=== PATIENT | female | born 1940 | race Caucasian/White ===

== ENCOUNTER 2021-05-17 08:55 | Inpatient (IN) ==
[2021-05-17] MEDS ORDERED: FAMOTIDINE 20MG/5ML IV PUSH IV STA (09:19)
[2021-05-17] MEDS ORDERED: diphenhydrAMINE 50 MG/ML VIAL IV STA (09:19)
[2021-05-17] MEDS ORDERED: methylPREDNISolone 125 MG/2 ML VIAL IV STA (09:19)
[2021-05-17] MEDS ORDERED: HYDROmorphone INJ 0.5 MG/0.5 ML SYR IV PRN (09:24)
[2021-05-17] MEDS ORDERED: ACETAMINOPHEN 1,000 MG/100 ML VIAL IV STA (09:24)
--- NOTE | 2021-05-17 09:24 | Emergency Department Note ---
Impression & Plan DVT (deep venous thrombosis), Pulmonary emboli ED Provider Note NAME: JOY VAZQUEZ AGE: 80 SEX: F : 1940 ARRIVES VIA: Ambulance INFORMANT: Patient, ED PROVIDER(S): Haseeb Alvarez MD CHIEF COMPLAINT: Left leg pain HPI: This is a 80-year-old female who was sent in from [facility] over concerns of a large DVT in the left lower extremity. 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 [facility] EMS who brought the patient to the emergency department. EMS attempted to draw blood once without success. Upon arrival to the emergency department the patient is complaining of spasms in the left leg. She reports nothing seems to make the spasms better or worse. She did not receive anything for the spasms prior to arrival. The patient reports yesterday she was having chest pain. She reports nothing made the chest pain better or worse. She did not take anything for the chest pain at the time. [facility] sent the patient to the emergency department to rule out a PE and for recommendations on anticoagulation. ROS: See above HPI for pertinent positives & negatives. A total of 10 systems reviewed and were otherwise negative. PAST MEDICAL HISTORY: See Below PAST SURGICAL HISTORY: See Below FAMILY HISTORY: See Below SOCIAL HISTORY: See Below HOME MEDICATIONS: See Below ALLERGIES: See Below VITALS: See Below PHYSICAL EXAMINATION: VITAL SIGNS - Vital signs and nursing notes were reviewed. GENERAL - 80-year-old female appearing stated age who is in no acute distress. Communicates well with provider and answers questions appropriately. SKIN - diffuse bruising to LLE from hip to foot HEAD - NC/AT. EYES - PERRL with EOMI bilaterally. Sclera anicteric. Palpebral conjunctiva pink and moist with no injection noted. EARS - No deformities of external structures noted on gross examination bilaterally. NOSE - Midline and without cyanosis. No epistaxis or purulent drainage noted. Septum midline without deviation or septal hematoma noted. MOUTH/OROPHARYNX - Without perioral cyanosis. Buccal mucosa pink and moist and without leukoplakia. Tongue midline with equal elevation of palate bilaterally. No tonsillar hypertrophy, erythema, or exudates noted. NECK - Neck with FROM. Supple to palpation. No nuchal rigidity. LUNGS - Chest wall symmetric without accessory muscle use, intercostals retractions, or central cyanosis. Normal vesicular breath sounds CTA B/L. No wheezes, rales, or rhonchi appreciated. CARDIAC - RRR with S1/S2. No murmur, rubs, or gallops appreciated. ABDOMEN - Abdominal contour without pulsations or visible masses. BS normoactive all four quadrants. No tenderness, palpable masses, h epatosplenomegaly, or ascites noted. EXTREMITIES -patient left leg flaccid. She has a very large amount of bruising present from the left hip down to the left foot. Pedal pulses are present in the foot. NEUROLOGIC - Cranial nerves II through XII grossly intact. Sensory intact to light touch throughout. Patellar reflexes +2/4. PSYCH - A&Ox3 and cooperates fully with examiner. Pt is very pleasant and interacts well with examiner. MEDICAL DECISION MAKING: Patient was seen and evaluated as above in room C6. Review was performed of nursing notes and vital signs. I did review pertinent previous visits and patient history. After obtaining a thorough history and physical examination the above work up was performed. This 80-year-old female who presents emergency department complaining of left lower extremity pain. The patient was given Dilaudid as well as Tylenol for the pain. She does have an allergic reaction to iodine therefore was pretreated with Solu-Medrol Benadryl and Pepcid for her CAT scan. CAT scans of the abdomen are concerning for liver lesions. CAT scan of the chest is concerning for multiple PEs. This is a tricky patient to anticoagulate due to the fact that she has a history of an intracranial hemorrhage. She is going to be started on a heparin drip and admitted to the hospitalist service. She does have an elevation in her troponin. In the meanwhile the patient was given 4 g of magnesium here in the emergency department. She was started on a Heparin drip due to the PMHx of an ICH. Ct of the chest is concerning for multiple PEs. An order was placed for continuous cardiac monitoring. The monitor shows a rate of 100 with A fib rhythm. The patient was evaluated during a period of high volume and high acuity during the global COVID-19 pandemic, and that diagnosis was suspected/considered upon their initial presentation. Their evaluation, treatment and testing was consistent with current guidelines for patients who present with complaints or symptoms that may be related to COVID-19. Patient was seen while provider was wearing PPE. Triage Nursing notes reviewed. Prior medical records reviewed Vital Signs: reviewed and remarkable for no significant abnormalities Differential diagnosis: Cardiac ischemia, aortic dissection, pulmonary embolism, pneumothorax, pneumonia, pericarditis, myocarditis, esophageal rupture, GERD, cholecystitis, pancreatitis, musculoskeletal, as well as other pathologies. ER treatment provided: See below Diagnostics interpreted by me: ECG: EKG shows an atrial fibrillation with RVR T wave inversions in the lateral leads QTC is 443 ventricular rate is 120 EKG is compared to 05/02/2021 A. fib has replaced pacemaker Laboratory studies: As stated above and show below. Imaging studies: Venous lower extremity complete performed 05/16/2021 shows a left leg positive for partially occlusive acute DVT of the mid femoral vein the rest of the veins are normally patent. Consultation(s): Pharmacy, Internal Medicine Critical Care: I have personally spent greater than 30 minutes of critical care time in the direct management of this patient. This includes bedside care, interpretation of diagnostic studies, and testing, discussion with consultants, patient, and family members, and other required patient management activities. This 30 minutes is in excess of all separately billable procedures. 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 [place], [place]. date - 2017? 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 Surgical History (Updated 05/17/21 @ 12:29 by Ramsey Cabrera) H/O: hysterectomy History of colonoscopy 2011 - normal, no polyps S/P BSO (bilateral salpingo-oophorectomy) S/P lumbar spinal fusion Family History (Updated 05/17/21 @ 12:29 by Ramsey Cabrera) Mother , from "respiratory failure" Congestive heart failure Myocardial infarction Father , about age 80 from pneumonia Hypertension COPD (chronic obstructive pulmonary disease) Daughter Colorectal cancer Denies family history of Stroke Social History (Updated 05/17/21 @ 12:19 by Ramsey Cabrera) Smoking Status: Former smoker Tobacco Type: Cigarettes packs per day: 0.5; Years Smoked: 20; Smoking End Date: ; Hx Alcohol Use: Yes (previous - none now ) marital status: Current Living Situation: Family Current Living Situation Comment: lives with daughter and son-in-law -- JOLIE HAVEN current occupational status: retired current occupation: worked for [employer] How many Children do You have: 3 How many Children do You have Comment: 2 daughters, 1 son other: originally from [facility]. Feels Safe at Home: Yes Allergies Allergies Allergy/AdvReac Type Severity Reaction Status Date / Time iodine Allergy chills, Verified 05/17/21 09:35 burning sensation in neck vancomycin Allergy rash, Verified 05/17/21 09:35 nausea Home Meds Home Medications Medication Instructions Recorded Confirmed albuterol sulfate 90 mcg/actuation 2 puffs INHALATION Q4H PRN gm 07/18/19 05/17/21 aerosol inhaler cholecalciferol (vitamin D3) 50 2,000 units PO QAM cap 07/21/19 05/17/21 mcg (2,000 unit) capsule levothyroxine 137 mcg tablet 137 mcg PO DAILYBB tab 07/21/19 05/17/21 aspirin [Adult Low Dose Aspirin] 81 mg PO QAM 05/02/21 05/17/21 duloxetine [Cymbalta] 20 mg PO QAM 05/02/21 05/17/21 fluticasone furoate-vilanterol 1 inh INHALATION QAM 05/02/21 05/17/21 [Breo Ellipta] lisinopril 40 mg PO QAM 05/02/21 05/17/21 nitroglycerin [Nitrostat] 0.4 mg SUBLINGUAL DIRECTED PRN 05/02/21 05/17/21 potassium chloride 30 meq PO QAM 05/02/21 05/17/21 atorvastatin [Lipitor] 40 mg PO HS 05/17/21 05/17/21 baclofen 5 mg PO BID 05/17/21 05/17/21 calcium carbonate 500 mg PO QID 05/17/21 05/17/21 diazepam 1 mg PO HS 05/17/21 05/17/21 docusate sodium 100 mg PO BID 05/17/21 05/17/21 doxazosin [Cardura] 2 mg PO HS 05/17/21 05/17/21 folic acid 2 mg PO QAM 05/17/21 05/17/21 gabapentin 200 mg PO Q8H 05/17/21 05/17/21 melatonin 3 mg PO HS 05/17/21 05/17/21 metoprolol tartrate 50 mg PO Q12H 05/17/21 05/17/21 pantoprazole 40 mg PO DAILYBB 05/17/21 05/17/21 polyethylene glycol 3350 [Miralax] 17 g PO QDL PRN 05/17/21 05/17/21 sennosides-docusate sodium 1 tab-cap PO QDL PRN 05/17/21 05/17/21 [Senokot-S] torsemide 10 mg PO QAM 05/17/21 05/17/21 Results & Data (ED) Vital Signs Vital Signs - 24 hr 05/17/21 09:11 05/17/21 09:21 05/17/21 10:36 Temperature 36.8 C Temperature Source Oral Pulse Rate 100 H Pulse Rate [Apical] 76 Pulse Rate from SpO2 Sensor Respiratory Rate 18 18 Blood Pressure 130/77 Blood Pressure [Left Arm] 97/57 L Blood Pressure Mean 94 Blood Pressure Mean [Left Arm] 70 Pulse Oximetry 94 100 97 Oxygen Delivery Method Room Air Room Air Room Air Sepsis Recent Fever Within 48 Hours No Sepsis New/Unexplained Change in Mental Status No Sepsis Action Taken by Nursing No Action Required 05/17/21 11:00 05/17/21 11:30 05/17/21 12:00 Temperature Temperature Source Pulse Rate 80 80 80 Pulse Rate [Apical] Pulse Rate from SpO2 Sensor 80 80 80 Respiratory Rate 19 24 20 Blood Pressure 90/53 L 100/58 L 119/66 Blood Pressure [Left Arm] Blood Pressure Mean 65 72 83 Blood Pressure Mean [Left Arm] Pulse Oximetry 96 96 98 Oxygen Delivery Method Sepsis Recent Fever Within 48 Hours Sepsis New/Unexplained Change in Mental Status Sepsis Action Taken by Nursing 05/17/21 12:30 05/17/21 13:00 05/17/21 13:30 Temperature Temperature Source Pulse Rate 81 80 84 Pulse Rate [Apical] Pulse Rate from SpO2 Sensor 81 80 80 Respiratory Rate 19 18 17 Blood Pressure 117/67 105/62 104/56 L Blood Pressure [Left Arm] Blood Pressure Mean 83 76 72 Blood Pressure Mean [Left Arm] Pulse Oximetry 98 96 97 Oxygen Delivery Method Sepsis Recent Fever Within 48 Hours Sepsis New/Unexplained Change in Mental Status Sepsis Action Taken by Nursing Laboratory Data Result diagrams: 05/17/21 09:05 05/17/21 09:05 Lab Results 05/17/21 05/17/21 05/17/21 Range/Units 09:05 09:05 09:05 WBC 9.69 (4.8-10.8) K/uL RBC 3.06 L (4.2-5.4) M/uL Hgb 9.9 L (12.0-16.0) g/dL Hct 29.3 L (37-47) % MCV 95.8 (80-100) fL MCH 32.4 (25-34) pg MCHC 33.8 (32-36) g/dL RDW Std Deviation 63.4 H (36.4-46.3) fL RDW Coeff of Niyah 19.6 H (11.5-14.5) % Plt Count 544 H (130-400) K/uL MPV 8.9 (7.4-10.4) fL Immature Gran % (Auto) 1.5 % Neut % (Auto) 78.0 % Lymph % (Auto) 12.8 % Logan % (Auto) 6.4 % Eos % (Auto) 1.1 % Baso % (Auto) 0.2 % Neut # (Auto) 7.55 H (1.4-6.5) K/uL Lymph # (Auto) 1.24 (1.2-3.4) K/uL Logan # (Auto) 0.62 H (0.11-0.59) K/uL Eos # (Auto) 0.11 (0-0.5) K/uL Baso # (Auto) 0.02 (0-0.2) K/uL Immature Gran # (Auto) 0.15 H (0.00-0.02) K/uL PT 9.9 (9.0-12.0) Seconds INR 1.0 (0.9-1.1) APTT 21.9 (21.0-31.0) Seconds PTT Ratio 0.8 Sodium 132 L (136-145) mmol/L Potassium 4.5 (3.5-5.1) mmol/L Chloride 101 (98-107) mmol/L Carbon Dioxide 23 (21-32) mmol/L Anion Gap 8.0 (3-11) BUN 22 H (7-18) mg/dl Creatinine 0.90 (0.6-1.2) mg/dl Est Cr Clr Drug Dosing 47.4 ml/min Est GFR ( Amer) 70.5 ml/min Est GFR (Non-Af Amer) 60.8 ml/min BUN/Creatinine Ratio 24.6 H (10-20) Glucose 123 H (70-99) mg/dl Calcium 9.6 (8.5-10.1) mg/dl Total Bilirubin 1.4 H (0.2-1) mg/dl AST 37 (15-37) U/L ALT 76 (12-78) U/L Alkaline Phosphatase 95 (45-117) U/L Total Creatine Kinase 316 H (26-192) U/L CK-MB (CK-2) 5.8 H (0.5-3.6) ng/ml CK/CKMB % Calc 1.8 (0-3.0) Troponin I 0.131 H* (0-0.045) ng/ml Total Protein 5.9 L (6.4-8.2) gm/dl Albumin 3.0 L (3.4-5.0) gm/dl Globulin 2.9 (2.5-4.0) gm/dl Albumin/Globulin Ratio 1.0 (0.9-2) Lipase 199 (73-393) U/L COVID-19 Eval Order SARS-CoV-2 (PCR) (Negative) 05/17/21 05/17/21 Range/Units 10:55 10:55 WBC (4.8-10.8) K/uL RBC (4.2-5.4) M/uL Hgb (12.0-16.0) g/dL Hct (37-47) % MCV (80-100) fL MCH (25-34) pg MCHC (32-36) g/dL RDW Std Deviation (36.4-46.3) fL RDW Coeff of Niyah (11.5-14.5) % Plt Count (130-400) K/uL MPV (7.4-10.4) fL Immature Gran % (Auto) % Neut % (Auto) % Lymph % (Auto) % Logan % (Auto) % Eos % (Auto) % Baso % (Auto) % Neut # (Auto) (1.4-6.5) K/uL Lymph # (Auto) (1.2-3.4) K/uL Logan # (Auto) (0.11-0.59) K/uL Eos # (Auto) (0-0.5) K/uL Baso # (Auto) (0-0.2) K/uL Immature Gran # (Auto) (0.00-0.02) K/uL PT (9.0-12.0) Seconds INR (0.9-1.1) APTT (21.0-31.0) Seconds PTT Ratio Sodium (136-145) mmol/L Potassium (3.5-5.1) mmol/L Chloride (98-107) mmol/L Carbon Dioxide (21-32) mmol/L Anion Gap (3-11) BUN (7-18) mg/dl Creatinine (0.6-1.2) mg/dl Est Cr Clr Drug Dosing ml/min Est GFR ( Amer) ml/min Est GFR (Non-Af Amer) ml/min BUN/Creatinine Ratio (10-20) Glucose (70-99) mg/dl Calcium (8.5-10.1) mg/dl Total Bilirubin (0.2-1) mg/dl AST (15-37) U/L ALT (12-78) U/L Alkaline Phosphatase (45-117) U/L Total Creatine Kinase (26-192) U/L CK-MB (CK-2) (0.5-3.6) ng/ml CK/CKMB % Calc (0-3.0) Troponin I (0-0.045) ng/ml Total Protein (6.4-8.2) gm/dl Albumin (3.4-5.0) gm/dl Globulin (2.5-4.0) gm/dl Albumin/Globulin Ratio (0.9-2) Lipase (73-393) U/L COVID-19 Eval Order Covid19 at [facility] SARS-CoV-2 (PCR) NEGATIVE (Negative) Administered Medications Hydromorphone HCl (Hydromorphone Inj 0.5 Mg/0.5 Ml Syr) 0.25 mg IV Q15M PRN PRN Reason: Pain Stop: 05/31/21 09:23 Last Admin: 05/17/21 09:37 Dose: 0.25 mg Documented by: [id number] Heparin Sodium/Dextrose (Heparin Sodium/Dextrose) 25,000 units in 500 mls @ 0.02 mls/hr IV .Q24H MELIDA; Protocol Stop: 06/16/21 11:07 Last Admin: 05/17/21 11:22 Dose: 1,100 units/hr, 22 mls/hr Documented by: [id number] Cosigned by: [id number] Discontinued Medications Diphenhydramine HCl (Diphenhydramine 50 Mg/Ml Vial) 25 mg IV NOW STA Stop: 05/17/21 09:20 Last Admin: 05/17/21 09:48 Dose: 25 mg Documented by: [id number] Famotidine (Famotidine 20mg/5ml Iv Push) 20 mg IV ONE STA Stop: 05/17/21 09:20 Last Admin: 05/17/21 09:37 Dose: 20 mg Documented by: [id number] Acetaminophen (Ofirmev) 1,000 mg in 100 mls @ 400 mls/hr IV NOW STA Stop: 05/17/21 09:38 Last Infusion: 05/17/21 09:53 Dose: 0 mls/hr Documented by: [id number] Admin: 05/17/21 09:37 Dose: 400 mls/hr Documented by: [id number] Magnesium Sulfate/Dextrose (Magnesium Sulfate / D5w) 1 gm in 100 mls @ 200 mls/hr IV Q30M MELIDA Stop: 05/17/21 10:41 Last Infusion: 05/17/21 11:37 Dose: 0 mls/hr Documented by: [id number] Admin: 05/17/21 10:33 Dose: 200 mls/hr Documented by: [id number] Infusion: 05/17/21 10:29 Dose: 200 mls/hr Documented by: [id number] Admin: 05/17/21 09:59 Dose: 200 mls/hr Documented by: [id number] Magnesium Sulfate/Dextrose (Magnesium Sulfate / D5w) 1 gm in 100 mls @ 200 mls/hr IV Q30M MELIDA Stop: 05/17/21 10:41 Last Infusion: 05/17/21 12:44 Dose: 0 mls/hr Documented by: [id number] Admin: 05/17/21 11:21 Dose: 200 mls/hr Documented by: [id number] Infusion: 05/17/21 11:03 Dose: 200 mls/hr Documented by: [id number] Admin: 05/17/21 10:33 Dose: 200 mls/hr Documented by: [id number] Ioversol (Optiray 320 125ml) 120 ml IV ONCE ONE Stop: 05/17/21 10:06 Last Admin: 05/17/21 10:05 Dose: 120 ml Documented by: [id number] Methylprednisolone (Methylprednisolone 125 Mg/2 Ml Vial) 125 mg IV NOW STA Stop: 05/17/21 09:20 Last Admin: 05/17/21 09:48 Dose: 125 mg Documented by: [id number] Imaging Data Radiologist's Impression: Abdomen/Pelvis CT 05/17/21 09:19 CT abd pelvis IV con only CLINICAL HISTORY: Pt c/o large blood clot, left leg COMPARISON STUDY: None. TECHNIQUE: A dose lowering technique was utilized adhering to the principles of ALARA. CT DOSE: FINDINGS: Lower chest: Limited evaluation of lung bases shows no infiltrates or consolidative lesions. Oral contrast is seen within distal aspect of esophagus. Distal portion of the cardiac pacemaker are visualized. Liver: Normal in size. Innumerable hypoattenuating lesions are seen within the right and left lobe of the liver, largest is measured 3.7 x 2.3 cm on axial image and appear to be multicystic/multiloculated. There is mild prominence of central intrahepatic biliary ducts. Significant dilatation of extrahepatic bili ken duct measuring up to 15 mm in diameter no evidence of intraluminal calculi or definite mass lesion is seen. Gallbladder: Surgically absent. Spleen: Normal in size and attenuation. Pancreas: Unremarkable. Adrenal glands: Unremarkable. Kidneys: There is symmetric renal cortical enhancement. The kidneys are normal in size. Mild dilatation of the right renal pelvis is seen without definite hydroureter or obstructive calculi.No hydronephrosis is seen on the left. No evidence of nephrolithiasis. Pelvic viscera: Urinary bladder is fluid-filled with diffuse thickening of its wall. Uterus is not well seen, probably surgically absent. Bowel: Bowel loops are nondilated. Fluid-filled loops of small bowel might be seen in diarrheal state. Slightly dilated rectum with large amount of stool and gas, mild thickening of its wall and slight presacral fat stranding might represent proctitis. Peritoneum: There is no intraperitoneal free air or abdominal ascites. Vasculature: Abdominal aorta is tortuous, normal in caliber with prominent calcifications within its wall. Normal appearance of inferior vena cava and iliac veins. Adenopathy: None. Skeletal structures: Osteopenia. Degenerative changes of the spine. Partial fusion of the L3, L4 and L5 with possible prior surgical intervention within this region. IMPRESSION: 1. Multiple hypoattenuating and probably multicystic lesions throughout right and left lobe of the liver. Prominent dilatation of the common bile duct without definite mass lesions or obstructive calculus. Please correlate above-mentioned findings was prior history. Further evaluation with MRI of the abdomen might be considered if clinically indicated. 2. Mild hydronephrosis on the right. No evidence of obstructive calculi or mass lesions. Further evaluation with renal ultrasound might be considered. 3. Slightly dilated rectum with thickened wall and mild presacral edema, could represent proctitis. Please correlate above-mentioned findings with clinical presentation. 4. Multiple nondilated loops of small bowel are fluid-filled which could be seen in diarrheal state. 5. Mild diffuse thickening of urinary bladder wall which could seen in cystitis. Please correlate this findings with results of urinalysis. 6. Atherosclerosis. ACT 112: Positive. There are findings on this exam that require communication between the performing entity and the patient following Patient Test Result Information Act ([place] Act 112) guidelines. The above report was generated using voice recognition software. It may contain grammatical, syntax or spelling errors. Electronically signed by: Anne Marie Clark DO 05/17/2021 10:45 AM Chest CTA 05/17/21 09:19 CT ANGIOGRAM OF THE CHEST CLINICAL HISTORY: Pulmonary most. The venous thrombosis. COMPARISON STUDY: No priors. TECHNIQUE: Following the IV administration of 120 cc of Optiray 320, CT angiogram of the chest was performed from the upper abdomen to the thoracic inlet utilizing the pulmonary embolus protocol. Images are reviewed in the axial, sagittal, and coronal planes. 3-D MIPS images are created and assessed. IV contrast was administered without complication. A dose lowering technique was utilized adhering to the principles of ALARA. The examination is degraded by motion artifact, as well as by streak artifact from the arms which could not be elevated above the chest. CT DOSE: 824.52 mGycm FINDINGS: Thyroid: Atrophic versus surgically absent. Thoracic aorta: There is atherosclerotic calcification of the thoracic aorta, which is normal in caliber and demonstrates standard 3-vessel arch anatomy. No dissection is seen. Pulmonary vasculature: The pulmonary trunk is normal in caliber. There are segmental and subsegmental pulmonary emboli within branches of the right lower lobe pulmonary artery. There is also thrombus within the right upper lobe pulmonary artery extending into a segmental branch seen on image #174. Heart: A 2-lead cardiac pacemaker is present in the left chest wall. The heart is normal in size and without pericardial effusion. Lungs and pleural spaces: There is no airspace consolidation typical for pneumonia or pleural effusion. Fat-containing Bochdalek hernias are present at the lung bases. There is mild bibasilar scarring/atelectasis. The trachea and central airways are clear. An 8 mm left lower lobe pulmonary nodule is seen on image #175. There are 2 small right apical pulmonary nodules measuring up to 4 mm seen on images #246 and #251. A 3 mm left upper lobe pulmonary nodule is seen on image #224. Mediastinum: There is no mediastinal lymphadenopathy. Nena: Clear. Axillae: There is no axillary lymphadenopathy. Upper abdomen: Hepatic cysts measure up to 3 cm. Partially visualized upper abdominal viscera is within normal limits. Skeletal structures: The skeletal structures are heterogeneously osteopenic. De generative change and hyperkyphosis is noted in the thoracic spine. No lytic or blastic bony lesions are seen. IMPRESSION: 1. Right-sided pulmonary emboli as above. 2. There is no airspace consolidation or pleural effusion. 3. Scattered indeterminate pulmonary nodules measure up to 8 mm. These can be followed as per the Fleischner criteria. See below. Please refer to below summary of Fleischner criteria recommendations for follow- up of incidental CT nodules (Savi Mcadams, Guidelines for management of small pulmonary nodules detected on CT scans: A statement from the Fleischner Society, Radiology 237: [phone].) SOLID NODULES Solitary nodule size: <6 mm * low risk patients: no follow-up needed * high risk patients: optional CT at 12 months Solitary nodule size: 6-8 mm * low risk patients: follow-up at 6-12 months, then consider further follow-up at 18-24 months * high risk patients: initial follow-up CT at 6-12 months and then at 18-24 months if no change Solitary nodule size: >8 mm * either low or high risk patients - consider follow-up CT at 3 months, and/or CT-PET, and/or biopsy Multiple nodules size: <6 mm * low risk patients: no routine follow-up * high risk patients: optional CT at 12 months Multiple nodules size: 6-8 mm * low risk patients: follow-up at 3-6 months, then consider further follow-up at 18-24 months * high risk patients: follow-up at 3-6 months, then at 18-24 months if no change Multiple nodules size: >8 mm * low risk patients: follow-up at 3-6 months, then consider further follow-up at 18-24 months * high risk patients: follow-up at 3-6 months, then at 18-24 months if no change Note: newly detected indeterminate nodule in persons 35 years of age or older. * low risk patients: minimal or absent history of smoking and/or other known risk factors * high risk patients: history of smoking or of other known risk factors (e.g. first degree relative with lung cancer, or exposure to asbestos, radon, uranium) * if a nodule up to 8 mm is partly solid or is ground glass further follow-up i s required after 24 months to exclude possible slow growing adenocarcinoma (SANJAY) SUBSOLID NODULES Solitary pure ground-glass nodule * nodule size <6 mm - no CT follow-up required * nodule size >=6 mm - follow-up CT at 6-12 months, then every 2 years until 5 years Solitary part-solid nodule * nodule size <6 mm - no CT follow-up required * nodule size >=6 mm - follow-up CT at 3-6 months. If unchanged, and solid component remains <6 mm, then annual follow-up for 5 years Multiple subsolid nodules * nodule size <6 mm - follow-up CT at 3-6 months, consider further follow-up at 2 and 4 years if stable * nodule size >=6 mm - follow-up CT at 3-6 months, subsequent management based on the most suspicious nodule(s) ACT 112: Negative or not required by law. Electronically signed by: Guicho Castelan M.D. 05/17/2021 10:45 AM Discharge Plan Visit Data Chief Complaint: Leg Injury/Pain Stated Complaint: DVT LEFT LEG ED Provider: Haseeb Alvarez Discharge Problem: DVT (deep venous thrombosis), Pulmonary emboli Forms Stand Alone Forms: [employer] Prescriptions Prescriptions: No Action albuterol sulfate 90 mcg/actuation HFA aerosol inhaler 2 puffs inhalation Q4H PRN (Reason: SHORT OF BREATH) RF: 0 cholecalciferol (vitamin D3) 2,000 unit capsule 2,000 units PO QAM RF: 0 levothyroxine 137 mcg tablet 137 mcg PO DAILYBB RF: 0 atorvastatin [Lipitor] 40 mg tablet 40 mg PO HS RF: 0 polyethylene glycol 3350 [Miralax] 17 gram Powder In Packet 17 g PO QDL PRN (Reason: Constipation) RF: 0 sennosides-docusate sodium [Senokot-S] 8.6-50 mg Tablet 1 tab-cap PO QDL PRN (Reason: Constipation) RF: 0 torsemide 10 mg tablet 10 mg PO QAM RF: 0 melatonin 3 mg Tablet 3 mg PO HS RF: 0 diazepam 2 mg Tablet 1 mg PO HS RF: 0 pantoprazole 40 mg Tablet,Delayed Release (Dr/Ec) 40 mg PO DAILYBB RF: 0 metoprolol tartrate 50 mg Tablet 50 mg PO Q12H RF: 0 docusate sodium 100 mg Capsule 100 mg PO BID RF: 0 folic acid 1 mg Tablet 2 mg PO QAM RF: 0 calcium carbonate 500 mg calcium (1,250 mg) Tablet,Chewable 500 mg PO QID RF: 0 gabapentin 100 mg Capsule 200 mg PO Q8H RF: 0 doxazosin [Cardura] 2 mg tablet 2 mg PO HS RF: 0 baclofen 5 mg Tablet 5 mg PO BID RF: 0 potassium chloride 10 mEq Capsule, Extended Release 30 meq PO QAM RF: 0 aspirin [Adult Low Dose Aspirin] 81 mg Tablet,Delayed Release (Dr/Ec) 81 mg PO QAM RF: 0 nitroglycerin [Nitrostat] 0.4 mg Tablet, Sublingual 0.4 mg sublingual DIRECTED PRN (Reason: Chest Pain) RF: 0 lisinopril 40 mg Tablet 40 mg PO QAM RF: 0 duloxetine [Cymbalta] 20 mg Capsule,Delayed Release(Dr/Ec) 20 mg PO QAM RF: 0 Breo Ellipta 200-25 mcg/dose Blister With Device 1 inh INHALATION QAM RF: 0 Discharge Problem: DVT (deep venous thrombosis) Qualifiers: DVT location: lower extremity Affected thrombotic vein of extremity: unspecified vein of extremity Chronicity: acute Laterality: left Qualified Code(s): I82.402 - Acute embolism and thrombosis of unspecified deep veins of left lower extremity Pulmonary emboli Qualifiers: Pulmonary embolism type: unspecified Chronicity: unspecified Acute cor pulmonale presence: unspecified Qualified Code(s): I26.99 - Other pulmonary embolism without acute cor pulmonale
[2021-05-17 09:25] LABS: Basophils # (auto) 0.02 K/uL (0-0.2); Basophils % (auto) 0.2 %; Eosinophils # (auto) 0.11 K/uL (0-0.5); Eosinophils % (auto) 1.1 %; Hematocrit (blood only) 29.3 % (37-47); Hemoglobin 9.9 g/dL (12.0-16.0); Immature Granulocytes # (auto) 0.15 K/uL (0.00-0.02); Immature Granulocytes % (auto) 1.5 %; Lymphocytes # (auto) 1.24 K/uL (1.2-3.4); Lymphocytes % (auto) 12.8 %; Mean Corpuscular Hemoglobin 32.4 pg (25-34); Mean Corpuscular Hgb Conc 33.8 g/dL (32-36); Mean Corpuscular Volume 95.8 fL (80-100); Mean Platelet Volume 8.9 fL (7.4-10.4); Monocytes # (auto) 0.62 K/uL (0.11-0.59); Monocytes % (auto) 6.4 %; Neutrophils # (auto) 7.55 K/uL (1.4-6.5); Platelet Count 544 K/uL (130-400); RDW Coefficient of Variation 19.6 % (11.5-14.5); RDW Standard Deviation 63.4 fL (36.4-46.3); Red Blood Count 3.06 M/uL (4.2-5.4); White Blood Count 9.69 K/uL (4.8-10.8)
[2021-05-17 09:39] LABS: Partial Thromboplastin Ratio 0.8; Partial Thromboplastin Time 21.9 Seconds (21.0-31.0); Prothrombin Time 9.9 Seconds (9.0-12.0)
[2021-05-17 09:45] LABS: BUN Creatinine Ratio 24.6 (10-20); Calcium 9.6 mg/dl (8.5-10.1); Creatinine Clr Calc Pharmacy 47.4 ml/min; Est GFR (African American) 70.5 ml/min; Est GFR (Non-African American) 60.8 ml/min; Potassium 4.5 mmol/L (3.5-5.1)
[2021-05-17 09:57] LABS: Bilirubin,Total 1.4 mg/dl (0.2-1); Creatine Kinase MB 5.8 ng/ml (0.5-3.6); Globulin 2.9 gm/dl (2.5-4.0); Total Protein 5.9 gm/dl (6.4-8.2); Troponin I 0.131 ng/ml (0-0.045)
[2021-05-17] MEDS: MAGNESIUM SULFATE / D5W 1 GM/100 ML BAG IV SCH ×4 (09:59→11:21)
[2021-05-17] MEDS ORDERED: OPTIRAY 320 125ml IV ONE (10:05)
--- NOTE | 2021-05-17 10:46 | CT Scan Report ---
CT ANGIOGRAM OF THE CHEST CLINICAL HISTORY: Pulmonary most. The venous thrombosis. COMPARISON STUDY: No priors. TECHNIQUE: Following the IV administration of 120 cc of Optiray 320, CT angiogram of the chest was pe rformed from the upper abdomen to the thoracic inlet utilizing the pulmonary embolus protocol. Images are reviewed in the axial, sagittal, and coronal planes. 3-D MIPS images are created and assessed. I V contrast was administered without complication. A dose lowering technique was utilized adhering to the principles of ALARA. The examination is degraded by motion artifact, as well as by streak artifa ct from the arms which could not be elevated above the chest. CT DOSE: 824.52 mGycm FINDINGS: Thyroid: Atrophic versus surgically absent. Thoracic aorta: There is atherosclerotic calcification of the thoracic aorta, which is normal in naseem andrea and demonstrates standard 3-vessel arch anatomy. No dissection is seen. Pulmonary vasculature: The pulmonary trunk is normal in caliber. There are segmental and subsegmental pulmonary emboli within branches of the right lower lobe pulmonary artery. There is also thrombus wi thin the right upper lobe pulmonary artery extending into a segmental branch seen on image #174. Heart: A 2-lead cardiac pacemaker is present in the left chest wall. The heart is normal in size and without pericardial effusion. Lungs and pleural spaces: There is no airspace consolidation typical for pneumonia or pleural effusio n. Fat-containing Bochdalek hernias are present at the lung bases. There is mild bibasilar scarring/a telectasis. The trachea and central airways are clear. An 8 mm left lower lobe pulmonary nodule is se en on image #175. There are 2 small right apical pulmonary nodules measuring up to 4 mm seen on image s #246 and #251. A 3 mm left upper lobe pulmonary nodule is seen on image #224. Mediastinum: There is no mediastinal lymphadenopathy. Nena: Clear. Axillae: There is no axillary lymphadenopathy. Upper abdomen: Hepatic cysts measure up to 3 cm. Partially visualized upper abdominal viscera is with in normal limits. Skeletal structures: The skeletal structures are heterogeneously osteopenic. Degenerative change and hyperkyphosis is noted in the thoracic spine. No lytic or blastic bony lesions are seen. IMPRESSION: 1. Right-sided pulmonary emboli as above. 2. There is no airspace consolidation or pleural effusion. 3. Scattered indeterminate pulmonary nodules measure up to 8 mm. These can be followed as per the Fle ischner criteria. See below. Please refer to below summary of Fleischner criteria recommendations for follow-up of incidental CT n odules (Savi Mcadams, Guidelines for management of small pulmonary nodules detected on CT scans: A joie barraza from the Fleischner Society, Radiology 237: [phone].) SOLID NODULES Solitary nodule size: <6 mm * low risk patients: no follow-up needed * high risk patients: optional CT at 12 months Solitary nodule size: 6-8 mm * low risk patients: follow-up at 6-12 months, then consider further follow-up at 18-24 months * high risk patients: initial follow-up CT at 6-12 months and then at 18-24 months if no change Solitary nodule size: >8 mm * either low or high risk patients - consider follow-up CT at 3 months, and/or CT-PET, and/or biopsy Multiple nodules size: <6 mm * low risk patients: no routine follow-up * high risk patients: optional CT at 12 months Multiple nodules size: 6-8 mm * low risk patients: follow-up at 3-6 months, then consider further follow-up at 18-24 months * high risk patients: follow-up at 3-6 months, then at 18-24 months if no change Multiple nodules size: >8 mm * low risk patients: follow-up at 3-6 months, then consider further follow-up at 18-24 months * high risk patients: follow-up at 3-6 months, then at 18-24 months if no change Note: newly detected indeterminate nodule in persons 35 years of age or older. * low risk patients: minimal or absent history of smoking and/or other known risk factors * high risk patients: history of smoking or of other known risk factors (e.g. first degree relative with lung cancer, or exposure to asbestos, radon, uranium) * if a nodule up to 8 mm is partly solid or is ground glass further follow-up is required after 24 m onths to exclude possible slow growing adenocarcinoma (SANJAY) SUBSOLID NODULES Solitary pure ground-glass nodule * nodule size <6 mm - no CT follow-up required * nodule size >=6 mm - follow-up CT at 6-12 months, then every 2 years until 5 years Solitary part-solid nodule * nodule size <6 mm - no CT follow-up required * nodule size >=6 mm - follow-up CT at 3-6 months. If unchanged, and solid component remains <6 mm, then annual follow-up for 5 years Multiple subsolid nodules * nodule size <6 mm - follow-up CT at 3-6 months, consider further follow-up at 2 and 4 years if sta ble * nodule size >=6 mm - follow-up CT at 3-6 months, subsequent management based on the most suspiciou s nodule(s) ACT 112: Negative or not required by law. Electronically signed by: Guicho Castelan M.D. 05/17/2021 10:45 AM
--- NOTE | 2021-05-17 10:47 | CT Scan Report ---
CT abd pelvis IV con only CLINICAL HISTORY: Pt c/o large blood clot, left leg COMPARISON STUDY: None. TECHNIQUE: A dose lowering technique was utilized adhering to the principles of ALARA. CT DOSE: FINDINGS: Lower chest: Limited evaluation of lung bases shows no infiltrates or consolidative lesions. Oral con trast is seen within distal aspect of esophagus. Distal portion of the cardiac pacemaker are visualiz ed. Liver: Normal in size. Innumerable hypoattenuating lesions are seen within the right and left lobe of the liver, largest is measured 3.7 x 2.3 cm on axial image and appear to be multicystic/multiloculat ed. There is mild prominence of central intrahepatic biliary ducts. Significant dilatation of extrahe patic biliary duct measuring up to 15 mm in diameter no evidence of intraluminal calculi or definite mass lesion is seen. Gallbladder: Surgically absent. Spleen: Normal in size and attenuation. Pancreas: Unremarkable. Adrenal glands: Unremarkable. Kidneys: There is symmetric renal cortical enhancement. The kidneys are normal in size. Mild dilatati on of the right renal pelvis is seen without definite hydroureter or obstructive calculi.No hydroneph rosis is seen on the left. No evidence of nephrolithiasis. Pelvic viscera: Urinary bladder is fluid-filled with diffuse thickening of its wall. Uterus is not we ll seen, probably surgically absent. Bowel: Bowel loops are nondilated. Fluid-filled loops of small bowel might be seen in diarrheal state . Slightly dilated rectum with large amount of stool and gas, mild thickening of its wall and slight presacral fat stranding might represent proctitis. Peritoneum: There is no intraperitoneal free air or abdominal ascites. Vasculature: Abdominal aorta is tortuous, normal in caliber with prominent calcifications within its wall. Normal appearance of inferior vena cava and iliac veins. Adenopathy: None. Skeletal structures: Osteopenia. Degenerative changes of the spine. Partial fusion of the L3, L4 and L5 with possible prior surgical intervention within this region. IMPRESSION: 1. Multiple hypoattenuating and probably multicystic lesions throughout right and left lobe of the l iver. Prominent dilatation of the common bile duct without definite mass lesions or obstructive calcu trice. Please correlate above-mentioned findings was prior history. Further evaluation with MRI of the abdomen might be considered if clinically indicated. 2. Mild hydronephrosis on the right. No evidence of obstructive calculi or mass lesions. Further bal luation with renal ultrasound might be considered. 3. Slightly dilated rectum with thickened wall and mild presacral edema, could represent proctitis. Please correlate above-mentioned findings with clinical presentation. 4. Multiple nondilated loops of small bowel are fluid-filled which could be seen in diarrheal state. 5. Mild diffuse thickening of urinary bladder wall which could seen in cystitis. Please correlate th is findings with results of urinalysis. 6. Atherosclerosis. ACT 112: Positive. There are findings on this exam that require communication between the performing entity and the patient following Patient Test Result Information Act ([place] Act 112) guidelines. The above report was generated using voice recognition software. It may contain grammatical, syntax o r spelling errors. Electronically signed by: Anne Mraie Clark DO 05/17/2021 10:45 AM
[2021-05-17] MEDS ORDERED: Heparin IV Adult Wt-Based Standard *NO* Bolus Protocol ONE (10:53)
[2021-05-17] MEDS: HEPARIN SODIUM/DEXTROSE 25,000 UNITS/500 ML BAG IV SCH (11:22)
--- NOTE | 2021-05-17 11:47 | History & Physical Report ---
Date of Service May 17, 2021 Assessment & Plan (1) Pulmonary emboli: Right sided PEs with LLE DVT. Risk factors - prolonged immobility of the left leg. I cannot rule out an occult cancerous process in light of the liver lesions, weight loss, etc. I called [facility] and spoke with their on-call neurosurgeon. 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 Discussed recent CVA (presumed embolic from a.fib). Discussed recent CTA head/neck showing healthy vessels - specifically, no dissection, aneurysm, AVM, etc seen. It was felt that the risks of not treating the PEs/DVT outweigh the risks of recurrent bleeding from a tiny intracerebral AVM. Thus, will continue heparin infusion per protocol. Defer to daytime rounding team which oral agent to use. (2) DVT (deep venous thrombosis): LLE -- see above. 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 resulting severe weakness of the LLE and, to a degrees, mild LUE weakness. patient is left-handed. presumed embolic from her chronic, permanent a.fib. for secondary reduction of stroke will now be on systemic anticoagulation. can d/c aspirin. continue lipitor 40mg daily. (4) Atrial fibrillation: permanent. cont metoprolol 50mg BID. starting heparin infusion. defer to daytime rounding team choice of oral anticoagulant. (5) Hypertension: BPs low or low-normal at presentation today. HOLD multiple BP meds from home including lisinopril, doxazosin, and torsemide. (6) Hypothyroid: check TSH in am cont synthroid (7) Intracranial hemorrhage: history of such. had this in ~2017. see discussion above. patient was told it was due to a venous malformation that bled. on all studies of the brain recently completed there are no AVMs or aneurysms seen. her bleeding event was so mild that she did not require hospitalization? 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 (9) Diarrhea: stop constipation aids. check a c diff. treat as needed. (10) Weight loss: Even prior to the patient's stroke she had been having weight loss, early satiety, and changing bowel habits. The weight loss and liver lesions are concerning for occult malignancy. see below. (11) Anemia: check iron studies in am. on 05/02/21 her Hb was 12. Hb now <10. much of the drop could be 2nd to frequent blood draws, bruising on left leg (extensive), etc. stool was HEME NEGATIVE on examination today. trend the cbc. (12) Liver lesion: numerous lesions along with CBD dilatation. etiology and significance of these lesions -- uncertain, but worrisome. start with RUQ u/s. may need MRCP. pt's daughter stated that pacemaker is MR compatible. however, while at [facility], her pacemaker was not functioning normally while in the MRI machine. (13) UTI (urinary tract infection): u/a suggestive of UTI. at risk of nosocomial pathogens. start rocephin 2gm daily, follow culture to completion. (14) Asthma: not active at this time (15) Complex care coordination: called and spoke with pt's daughter - gave extensive update by phone. called and spoke with neurosurgery at [facility] - case discussed thoroughly. bedside visit and other care coordination very complex. total time today 105 minutes History of Present Illness Chief Complaint: "they found a blood clot" Primary Care Provider: Surekha Saucedo MD 80yo female with recent right MCA territory stroke on 05/02/21 due to large em bolus in the right MCA - transferred and hospitalized at [facility] with hopes for neurovascular intervention - presents from [facility] due to a DVT diagnosed in the last 24 hours. The DVT is in the LLE. Doppler report confirms a left mid-femoral vein DVT. RLE is negative for DVT. She had been having pain in the left leg for a few days. She also had chest discomfort yesterday but none today. She denies any dyspnea. Patient reports that anticoagulation was NOT initiated at [place] for her acute embolic stroke due to concerns about her spontaneous ICH while living in [place], [place]. This event occurred in ~2017. Apparently presented to a eye doctor there with visual disturbance. MRI ultimately done showing a ?left cerebral AVM? Oddly she did not require hospitalization for this. [facility] records were reviewed -- after arriving at [facility] she ultimately did NOT have intervention to the right MCA embolus. She apparently had had severe LLE spasms and was seen by pain management for this problem. Her left leg is considerably bruised and records from [facility] indicate the extensive bruising occurred because of self-rubbing the leg while at [facility]? Allergies Allergy/AdvReac Type Severity Reaction Status Date / Time iodine Allergy chills, Verified 05/17/21 09:35 burning sensation in neck vancomycin Allergy rash, Verified 05/17/21 09:35 nausea Home Medications Medication Instructions Recorded Confirmed Type albuterol sulfate 90 mcg/actuation 2 puffs INHALATION Q4H PRN gm 07/18/19 05/17/21 History aerosol inhaler cholecalciferol (vitamin D3) 50 2,000 units PO QAM cap 07/21/19 05/17/21 History mcg (2,000 unit) capsule levothyroxine 137 mcg tablet 137 mcg PO DAILYBB tab 07/21/19 05/17/21 History aspirin [Adult Low Dose Aspirin] 81 mg PO QAM 05/02/21 05/17/21 History duloxetine [Cymbalta] 20 mg PO QAM 05/02/21 05/17/21 History fluticasone furoate-vilanterol 1 inh INHALATION QAM 05/02/21 05/17/21 History [Breo Ellipta] lisinopril 40 mg PO QAM 05/02/21 05/17/21 History nitroglycerin [Nitrostat] 0.4 mg SUBLINGUAL DIRECTED PRN 05/02/21 05/17/21 History potassium chloride 30 meq PO QAM 05/02/21 05/17/21 History atorvastatin [Lipitor] 40 mg PO HS 05/17/21 05/17/21 History baclofen 5 mg PO BID 05/17/21 05/17/21 History calcium carbonate 500 mg PO QID 05/17/21 05/17/21 History diazepam 1 mg PO HS 05/17/21 05/17/21 History docusate sodium 100 mg PO BID 05/17/21 05/17/21 History doxazosin [Cardura] 2 mg PO HS 05/17/21 05/17/21 History folic acid 2 mg PO QAM 05/17/21 05/17/21 History gabapentin 200 mg PO Q8H 05/17/21 05/17/21 History melatonin 3 mg PO HS 05/17/21 05/17/21 History metoprolol tartrate 50 mg PO Q12H 05/17/21 05/17/21 History pantoprazole 40 mg PO DAILYBB 05/17/21 05/17/21 History polyethylene glycol 3350 [Miralax] 17 g PO QDL PRN 05/17/21 05/17/21 History sennosides-docusate sodium 1 tab-cap PO QDL PRN 05/17/21 05/17/21 History [Senokot-S] torsemide 10 mg PO QAM 05/17/21 05/17/21 History Past Med/Surg History Medical History (Updated 05/17/21 @ 23:46 by Ramsey Cabrera) Allergic rhinitis Asthma Atrial fibrillation diagnosis in mid Hypertension Hypothyroid 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 [facility] Jeff. date - 2016? Pacemaker [facility] - 2019 - tachy-elmira syndrome / SA node dysfunction ? Stroke right MCA territory CVA - 04/2021; hospitalized [facility]. Surgical History (Updated 05/17/21 @ 12:29 by Ramsey Cabrera) H/O: hysterectomy History of colonoscopy 2011 - normal, no polyps S/P BSO (bilateral salpingo-oophorectomy) S/P lumbar spinal fusion Family History (Updated 05/17/21 @ 12:29 by Ramsey Cabrera) Mother , from "respiratory failure" Congestive heart failure Myocardial infarction Father , about age 80 from pneumonia Hypertension COPD (chronic obstructive pulmonary disease) Daughter Colorectal cancer Denies family history of Stroke Social History (Updated 05/17/21 @ 12:19 by Ramsey Cabrera) Smoking Status: Unknown if ever smoked Tobacco Type: Cigarettes packs per day: 0.5; Years Smoked: 20; Smoking End Date: ; Hx Alcohol Use: No Hx Substance Use: No Preferred Language: Kenyan Communication Ability: Effective [employer] Required: No Beliefs That Will Affect Care: None marital status: Current Living Situation: Rehab Current Living Situation Comment: lives with daughter and son-in-law -- [place] current occupational status: retired current occupation: worked for [employer] How many Children do You have: 3 How many Children do You have Comment: 2 daughters, 1 son Other Information That Helps Us Care for You: No other: originally from [facility]. Feels Safe at Home: Yes Safety Concerns: Feels Safe At This Time Review of Systems Constitutional: + weight loss (uncertain amount ); no fever, no chills, no fatigue and no anorexia Eyes: no worsening vision Ear, Nose, Mouth, Throat: no sore throat and no dysphagia no loss of taste or smell Respiratory: + cough; no dyspnea on exertion, no hemoptysis and no pain on inspiration Cardiovascular: + chest pain (on 05/16/21 ) and + edema Gastrointestinal: + early satiety (several months duration ) and + diarrhea/loose stools (present "off and on" for "years" ); no abdominal pain, no nausea, no vomiting and no blood in stools Genitourinary: no hematuria Musculoskeletal: + joint pain (left hip for a few weeks - prior to stroke ) Integumentary: no rash Neurologic: + localized weakness (LLE; left arm as well --- from recent CVA ) Psychiatric: + depression Endocrine: no diabetes Hematologic / Lymphatic: no lymphadenopathy and no night sweats Physical Exam Constitutional: + ill appearing and + frail appearing; no acute distress and no altered mental status Eyes: PERRL ENMT: Ears: no TM abnormality Nose: no external nose abnormality Mouth: no oropharynx abnormality Neck: trachea midline, no thyromegaly Respiratory: normal respiratory effort, lungs clear to auscultation Cardiovascular: Rate/Rhythm: regular rate and + irregularly irregular Heart Sounds: normal S1 and normal S2; no murmur Vessels: posterior tibial pulses present and dorsalis pedis pulses present; no JVD Extremities: + edema (LLE - about 1+ distally, 2+ in the left thigh; trace RLE ) Gastrointestinal (Abdomen): Inspection/Auscultation: + abdomen distended (mild) and normal bowel sounds Percussion/Palpation: + abdomen tender (suprapubic region ); no guarding, abdomen not rigid and no hepatosplenomegaly Rectal Exam: + rectal tenderness (minimal); heme negative stool, no rectal mass, no hemorrhoids and no fecal impaction Musculoskeletal: extensive bruising of left leg extending from the proximal left thigh and tracking inferiorly all the way to the left foot. Skin: + ecchymosis (LLE) Neurologic: speech clear & fluent; Left arm strength 4/5; right arm strength 5/5; RLE 5/5; LLE strength 0/5. Increased tone LUE and LLE, much worse in LLE. Clonus left foot. Mildly brisk reflexes left arm/leg vs the right. Psychiatric: Orientation: alert and oriented x 3 Affect: + depressed affect Lymphatic: no cervical lymphadenopathy Results & Data Results & Data ([facility]) Vital Signs (Past 12 Hours) Vital Signs Temp Pulse Pulse Resp BP BP Pulse Ox 05/17/21 11:00 80 19 90/53 L 96 05/17/21 10:36 76 18 97/57 L 97 05/17/21 09:21 100 05/17/21 09:11 36.8 C 100 H 18 130/77 94 Laboratory Results Labs 05/17/21 05/17/21 05/17/21 09:05 09:05 09:05 WBC 9.69 RBC 3.06 L Hgb 9.9 L Hct 29.3 L MCV 95.8 MCH 32.4 MCHC 33.8 RDW Std Deviation 63.4 H RDW Coeff of Niyah 19.6 H Plt Count 544 H MPV 8.9 Immature Gran % (Auto) 1.5 Neut % (Auto) 78.0 Lymph % (Auto) 12.8 [place] % (Auto) 6.4 Eos % (Auto) 1.1 Baso % (Auto) 0.2 Neut # (Auto) 7.55 H Lymph # (Auto) 1.24 [place] # (Auto) 0.62 H Eos # (Auto) 0.11 Baso # (Auto) 0.02 Immature Gran # (Auto) 0.15 H PT 9.9 INR 1.0 APTT 21.9 PTT Ratio 0.8 Sodium 132 L Potassium 4.5 Chloride 101 Carbon Dioxide 23 Anion Gap 8.0 BUN 22 H Creatinine 0.90 Est Cr Clr Drug Dosing 47.4 Est GFR ( Amer) 70.5 Est GFR (Non-Af Amer) 60.8 BUN/Creatinine Ratio 24.6 H Glucose 123 H Calcium 9.6 Total Bilirubin 1.4 H AST 37 ALT 76 Alkaline Phosphatase 95 Total Creatine Kinase 316 H CK-MB (CK-2) 5.8 H CK/CKMB % Calc 1.8 Troponin I 0.131 H* Total Protein 5.9 L Albumin 3.0 L Globulin 2.9 Albumin/Globulin Ratio 1.0 Lipase 199 COVID-19 Eval Order SARS-CoV-2 (PCR) 05/17/21 05/17/21 10:55 10:55 WBC RBC Hgb Hct MCV MCH MCHC RDW Std Deviation RDW Coeff of Niyah Plt Count MPV Immature Gran % (Auto) Neut % (Auto) Lymph % (Auto) [place] % (Auto) Eos % (Auto) Baso % (Auto) Neut # (Auto) Lymph # (Auto) [place] # (Auto) Eos # (Auto) Baso # (Auto) Immature Gran # (Auto) PT INR APTT PTT Ratio Sodium Potassium Chloride Carbon Dioxide Anion Gap BUN Creatinine Est Cr Clr Drug Dosing Est GFR ( Amer) Est GFR (Non-Af Amer) BUN/Creatinine Ratio Glucose Calcium Total Bilirubin AST ALT Alkaline Phosphatase Total Creatine Kinase CK-MB (CK-2) CK/CKMB % Calc Troponin I Total Protein Albumin Globulin Albumin/Globulin Ratio Lipase COVID-19 Eval Order Covid19 at [facility] SARS-CoV-2 (PCR) NEGATIVE Diagnostic Findings Abdomen/Pelvis CT 05/17/21 09:19 CT abd pelvis IV con only CLINICAL HISTORY: Pt c/o large blood clot, left leg COMPARISON STUDY: None. TECHNIQUE: A dose lowering technique was utilized adhering to the principles of ALARA. CT DOSE: FINDINGS: Lower chest: Limited evaluation of lung bases shows no infiltrates or consolidative lesions. Oral contrast is seen within distal aspect of esophagus. Distal portion of the cardiac pacemaker are visualized. Liver: Normal in size. Innumerable hypoattenuating lesions are seen within the right and left lobe of the liver, largest is measured 3.7 x 2.3 cm on axial image and appear to be multicystic/multiloculated. There is mild prominence of central intrahepatic biliary ducts. Significant dilatation of extrahepatic biliary duct measuring up to 15 mm in diameter no evidence of intraluminal calculi or definite mass lesion is seen. Gallbladder: Surgically absent. Spleen: Normal in size and attenuation. Pancreas: Unremarkable. Adrenal glands: Unremarkable. Kidneys: There is symmetric renal cortical enhancement. The kidneys are normal in size. Mild dilatation of the right renal pelvis is seen without definite hydroureter or obstructive calculi.No hydronephrosis is seen on the left. No evidence of nephrolithiasis. Pelvic viscera: Urinary bladder is fluid-filled with diffuse thickening of its wall. Uterus is not well seen, probably surgically absent. Bowel: Bowel loops are nondilated. Fluid-filled loops of small bowel might be seen in diarrheal state. Slightly dilated rectum with large amount of stool and gas, mild thickening of its wall and slight presacral fat stranding might represent proctitis. Peritoneum: There is no intraperitoneal free air or abdominal ascites. Vasculature: Abdominal aorta is tortuous, normal in caliber with prominent calcifications within its wall. Normal appearance of inferior vena cava and iliac veins. Adenopathy: None. Skeletal structures: Osteopenia. Degenerative changes of the spine. Partial fusion of the L3, L4 and L5 with possible prior surgical intervention within this region. IMPRESSION: 1. Multiple hypoattenuating and probably multicystic lesions throughout right and left lobe of the liver. Prominent dilatation of the common bile duct without definite mass lesions or obstructive calculus. Please correlate above-mentioned findings was prior history. Further evaluation with MRI of the abdomen might be considered if clinically indicated. 2. Mild hydronephrosis on the right. No evidence of obstructive calculi or mass lesions. Further evaluation with renal ultrasound might be considered. 3. Slightly dilated rectum with thickened wall and mild presacral edema, could represent proctitis. Please correlate above-mentioned findings with clinical presentation. 4. Multiple nondilated loops of small bowel are fluid-filled which could be seen in diarrheal state. 5. Mild diffuse thickening of urinary bladder wall which could seen in cystitis. Please correlate this findings with results of urinalysis. 6. Atherosclerosis. ACT 112: Positive. There are findings on this exam that require communication between the performing entity and the patient following Patient Test Result Information Act ([place] Act 112) guidelines. The above report was generated using voice recognition software. It may contain grammatical, syntax or spelling errors. Electronically signed by: Anne Marie Clark DO 05/17/2021 10:45 AM Chest CTA 05/17/21 09:19 CT ANGIOGRAM OF THE CHEST CLINICAL HISTORY: Pulmonary most. The venous thrombosis. COMPARISON STUDY: No priors. TECHNIQUE: Following the IV administration of 120 cc of Optiray 320, CT angiogram of the chest was performed from the upper abdomen to the thoracic inlet utilizing the pulmonary embolus protocol. Images are reviewed in the axial, sagittal, and coronal planes. 3-D MIPS images are created and assessed. IV contrast was administered without complication. A dose lowering technique was utilized adhering to the principles of ALARA. The examination is degraded by motion artifact, as well as by streak artifact from the arms which could not be elevated above the chest. CT DOSE: 824.52 mGycm FINDINGS: Thyroid: Atrophic versus surgically absent. Thoracic aorta: There is atherosclerotic calcification of the thoracic aorta, which is normal in caliber and demonstrates standard 3-vessel arch anatomy. No dissection is seen. Pulmonary vasculature: The pulmonary trunk is normal in caliber. There are segmental and subsegmental pulmonary emboli within branches of the right lower lobe pulmonary artery. There is also thrombus within the right upper lobe pulmonary artery extending into a segmental branch seen on image #174. Heart: A 2-lead cardiac pacemaker is present in the left chest wall. The heart is normal in size and without pericardial effusion. Lungs and pleural spaces: There is no airspace consolidation typical for pneumonia or pleural effusion. Fat-containing Bochdalek hernias are present at the lung bases. There is mild bibasilar scarring/atelectasis. The trachea and central airways are clear. An 8 mm left lower lobe pulmonary nodule is seen on image #175. There are 2 small right apical pulmonary nodules measuring up to 4 mm seen on images #246 and #251. A 3 mm left upper lobe pulmonary nodule is seen on image #224. Mediastinum: There is no mediastinal lymphadenopathy. Nena: Clear. Axillae: There is no axillary lymphadenopathy. Upper abdomen: Hepatic cysts measure up to 3 cm. Partially visualized upper abdominal viscera is within normal limits. Skeletal structures: The skeletal structures are heterogeneously osteopenic. Degenerative change and hyperkyphosis is noted in the thoracic spine. No lytic or blastic bony lesions are seen. IMPRESSION: 1. Right-sided pulmonary emboli as above. 2. There is no airspace consolidation or pleural effusion. 3. Scattered indeterminate pulmonary nodules measure up to 8 mm. These can be followed as per the Fleischner criteria. See below. Please refer to below summary of Fleischner criteria recommendations for follow- up of incidental CT nodules (Savi Mcadams, Guidelines for management of small pulmonary nodules detected on CT scans: A statement from the Fleischner Society, Radiology 237: [phone].) SOLID NODULES Solitary nodule size: <6 mm * low risk patients: no follow-up needed * high risk patients: optional CT at 12 months Solitary nodule size: 6-8 mm * low risk patients: follow-up at 6-12 months, then consider further follow-up at 18-24 months * high risk patients: initial follow-up CT at 6-12 months and then at 18-24 months if no change Solitary nodule size: >8 mm * either low or high risk patients - consider follow-up CT at 3 months, and/or CT-PET, and/or biopsy Multiple nodules size: <6 mm * low risk patients: no routine follow-up * high risk patients: optional CT at 12 months Multiple nodules size: 6-8 mm * low risk patients: follow-up at 3-6 months, then consider further follow-up at 18-24 months * high risk patients: follow-up at 3-6 months, then at 18-24 months if no change Multiple nodules size: >8 mm * low risk patients: follow-up at 3-6 months, then consider further follow-up at 18-24 months * high risk patients: follow-up at 3-6 months, then at 18-24 months if no change Note: newly detected indeterminate nodule in persons 35 years of age or older. * low risk patients: minimal or absent history of smoking and/or other known risk factors * high risk patients: history of smoking or of other known risk factors (e.g. first degree relative with lung cancer, or exposure to asbestos, radon, uranium) * if a nodule up to 8 mm is partly solid or is ground glass further follow-up is required after 24 months to exclude possible slow growing adenocarcinoma (SANJAY) SUBSOLID NODULES Solitary pure ground-glass nodule * nodule size <6 mm - no CT follow-up required * nodule size >=6 mm - follow-up CT at 6-12 months, then every 2 years until 5 years Solitary part-solid nodule * nodule size <6 mm - no CT follow-up required * nodule size >=6 mm - follow-up CT at 3-6 months. If unchanged, and solid component remains <6 mm, then annual follow-up for 5 years Multiple subsolid nodules * nodule size <6 mm - follow-up CT at 3-6 months, consider further follow-up at 2 and 4 years if stable * nodule size >=6 mm - follow-up CT at 3-6 months, subsequent management based on the most suspicious nodule(s) ACT 112: Negative or not required by law. Electronically signed by: Guihco Castelan M.D. 05/17/2021 10:45 AM EKG - my reading - a.fib with RVR, Leads V4-V6 with ST segment depression Code Status & VTE Plan Code Status DNI/DNR VTE Prophylaxis Plan VTE Prophylaxis will be ordered: Yes Critical Care Time Prolonged Care Time Prolonged Care Time: Yes Total Prolonged Care Time: 105 PG Care Time/CCT Total # of Minutes Spent Total Time Spent with Patient: Total time spent is greater than 50% in coordination of care (as documented) at patient's floor/unit and/or counseling patient: Prolonged Care Time Prolonged Care Time: Yes Total Prolonged Care Time: 105 Coding Level of Care Code 62834 Initial Inpt Care Lvl 3 (25 - SIGNIFICANT, SEPARATELY IDENTIFIABLE ) Diagnoses Pulmonary emboli I26.99 Acute cor pulmonale presence: unspecified Chronicity: unspecified Pulmonary embolism type: unspecified DVT (deep venous thrombosis) I82.402 Affected thrombotic vein of extremity: unspecified vein of extremity Chronicity: acute DVT location: lower extremity Laterality: left Stroke I63.9 Atrial fibrillation I48.91 Hypertension I10 Hypothyroid E03.9 Intracranial hemorrhage I62.9 Pacemaker Z95.0 Diarrhea R19.7 Weight loss R63.4 Anemia D64.9 Liver lesion K76.9 UTI (urinary tract infection) N39.0 Asthma J45.909 Complex care coordination Z71.89 Additional Codes Prolonged Care Time - Prolonged Care Time: Yes ([id number]) Time Spent (min) 105 (1) DVT (deep venous thrombosis) Affected thrombotic vein of extremity: unspecified vein of extremity Chronicity: acute DVT location: lower extremity Laterality: left Qualified Code(s): I82.402 - Acute embolism and thrombosis of unspecified deep veins of left lower extremity (2) Pulmonary emboli Acute cor pulmonale presence: unspecified Chronicity: unspecified Pulmonary embolism type: unspecified Qualified Code(s): I26.99 - Other pulmonary embolism without acute cor pulmonale
[2021-05-17] MEDS ORDERED: NITROGLYCERIN SL 0.4 MG/TAB TAB SL PRN (14:31)
[2021-05-17] MEDS ORDERED: ONDANSETRON INJ 2 MG/ML 2 ML VIAL IV PRN (14:31)
[2021-05-17] MEDS ORDERED: ALBUTEROL HFA 8 GM INHALER INH PRN (14:31)
[2021-05-17] MEDS ORDERED: SODIUM CHLORIDE 0.9% 1000ML 1,000 ML IV SCH (15:00)
--- NOTE | 2021-05-17 16:11 | Ultrasound Report ---
ABDOMINAL ULTRASOUND, RIGHT UPPER QUADRANT HISTORY: liver lesions, CBD abnormalities on CT. COMPARISON: Abdomen and pelvis CT 05/17/2021. FINDINGS: Pancreas: The pancreatic tail is obscured by overlying bowel gas. The remaining portions of the pancr eas are within normal limits. Pancreatic duct is borderline dilated measuring up to 3 mm. Liver: Multiple scattered cysts. A few these demonstrate thin septations. Dominant cyst in the right hepatic lobe measures 3.9 cm. Gallbladder: The gallbladder is surgically absent. CBD: 1.1 cm. Right kidney: Mild fullness within the right renal collecting system without brianna hydronephrosis. Th ere is a subcentimeter cyst. IMPRESSION: 1. Dilated common bile duct measuring 1.1 cm. The main pancreatic duct is also borderline dilated at 3 mm. This is nonspecific but could be due to the patient's post cholecystectomy state. Recommend cor relation with LFTs. 2. Multiple hepatic cysts. A few of these contain thin septations. 3. Mild fullness within the right renal collecting system without brianna hydronephrosis. ACT 112: Negative or not required by law. Electronically signed by: Osiel Henson M.D. 05/17/2021 4:10 PM
[2021-05-17] MEDS: HYDROmorphone INJ 0.5 MG/0.5 ML SYR IV PRN (16:59)
--- NOTE | 2021-05-17 17:01 | Electrocardiogram Report ---
Test Reason : Blood Pressure : / mmHG Vent. Rate : 120 BPM Atrial Rate : 113 BPM P-R Int : 000 ms QRS Dur : 072 ms QT Int : 314 ms P-R-T Axes : 000 025 114 degrees QTc Int : 443 ms Atrial fibrillation with rapid ventricular response T wave abnormality, consider lateral ischemia Abnormal ECG When compared with ECG of 02-MAY-2021 21:01, Atrial fibrillation has replaced Electronic ventricular pacemaker Confirmed by Stanton Moody ([id number]) on 05/17/2021 5:00:47 PM Referred By: Confirmed By:Yash Moody
[2021-05-17] MEDS: CALCIUM CARBONATE 500 MG CHEWABLE TAB PO SCH ×2 (17:02→20:31)
[2021-05-17] MEDS: GABAPENTIN 100 MG CAP PO SCH ×2 (17:02→20:33)
[2021-05-17] MEDS: METOPROLOL TARTRATE 50 MG TAB PO SCH ×2 (17:03→20:34)
[2021-05-17 18:05] LABS: Partial Thromboplastin Ratio 1.8
[2021-05-17 18:22] LABS: Partial Thromboplastin Time 47.9 Seconds (21.0-31.0)
[2021-05-17] MEDS: BACLOFEN 10 MG TAB PO SCH (20:30)
[2021-05-17] MEDS: MELATONIN 3 MG TAB PO SCH (20:32)
[2021-05-17] MEDS: ATORVASTATIN 40 MG TAB PO SCH (20:32)
[2021-05-17 22:21] LABS: Appearance Urine Turbid (Clear); Bacteria Urine Automated 4+ (Negative); Bilirubin Urine Negative (Negative); Blood Urine 1+ (Negative); Color Urine Yellow; Glucose Urine UA Negative (Negative); Ketones Urine Negative (Negative); Leukocyte Esterase Urine 2+ (Negative); Nitrite Urine Positive (Negative); Protein Urine Trace (Negative); RBC Urine Automated 0-4 /hpf (0-4); Specific Gravity Urine > 1.045 (1.000-1.030); Urobilinogen Urine Negative (Negative); WBC Urine Automated >30 /hpf (0-5); pH Urine 5.5 (4.5-7.5)
[2021-05-18] MEDS: cefTRIAXone SODIUM 1,000 MG in DEXTROSE 5% 50 ML IV SCH ×2 (00:31→07:54)
[2021-05-18] MEDS: HYDROmorphone INJ 0.5 MG/0.5 ML SYR IV PRN ×4 (02:20→20:15)
[2021-05-18] MEDS: PANTOprazole 40 MG TAB PO SCH (05:44)
[2021-05-18] MEDS: GABAPENTIN 100 MG CAP PO SCH ×3 (05:44→20:17)
[2021-05-18] MEDS ORDERED: LEVOTHYROXINE SODIUM 137 MCG TABLET PO SCH (06:30)
[2021-05-18 07:23] LABS: Hemoglobin 9.5 g/dL (12.0-16.0); Mean Corpuscular Hemoglobin 32.4 pg (25-34); Mean Corpuscular Hgb Conc 33.9 g/dL (32-36); Mean Corpuscular Volume 95.6 fL (80-100); Mean Platelet Volume 8.8 fL (7.4-10.4); Platelet Count 527 K/uL (130-400); RDW Coefficient of Variation 19.8 % (11.5-14.5); RDW Standard Deviation 65.9 fL (36.4-46.3); Red Blood Count 2.93 M/uL (4.2-5.4); White Blood Count 10.78 K/uL (4.8-10.8)
[2021-05-18 07:48] LABS: Partial Thromboplastin Ratio 3.7
[2021-05-18] MEDS: HEPARIN SODIUM/DEXTROSE 25,000 UNITS/500 ML BAG IV SCH (07:51)
[2021-05-18 07:53] LABS: BUN Creatinine Ratio 26.4 (10-20); Calcium 9.3 mg/dl (8.5-10.1); Creatinine Clr Calc Pharmacy 59.6 ml/min; Est GFR (African American) 93.9 ml/min; Potassium 4.8 mmol/L (3.5-5.1)
[2021-05-18] MEDS: BACLOFEN 10 MG TAB PO SCH ×2 (07:53→20:16)
[2021-05-18] MEDS: CALCIUM CARBONATE 500 MG CHEWABLE TAB PO SCH ×4 (07:53→20:18)
[2021-05-18] MEDS: CHOLECALCIFEROL 1,000 UNITS 25 MCG TAB PO SCH (07:54)
[2021-05-18] MEDS: FOLIC ACID 1 MG TAB PO SCH (07:55)
[2021-05-18] MEDS: METOPROLOL TARTRATE 50 MG TAB PO SCH ×2 (07:55→20:18)
[2021-05-18] MEDS: FLUTICASONE/VILANTEROL 200/25MCG 14 PUFFS/INHALER INH SCH (07:56)
[2021-05-18 08:00] LABS: Partial Thromboplastin Time 97.4 Seconds (21.0-31.0)
[2021-05-18 08:04] LABS: Ferritin 297.3 ng/ml (8-388)
[2021-05-18] MEDS ORDERED: DULoxetine HCL 20 MG CAP PO SCH (09:00)
--- NOTE | 2021-05-18 10:39 | XCELERA ---
[id number]
[2021-05-18 11:00] LABS: Albumin Level 2.9 gm/dl (3.4-5.0); Bilirubin Direct 0.3 mg/dl (0-0.2); Bilirubin,Total 0.9 mg/dl (0.2-1); Total Protein 6.1 gm/dl (6.4-8.2); Troponin I 0.103 ng/ml (0-0.045)
--- NOTE | 2021-05-18 12:56 | Gastrointestinal Consultation ---
Date of Consultation May 18, 2021 Assessment & Plan (1) Dilated cbd, acquired: Patient with normal LFTs, has dilated CBD on CT scan but she is s/p cholecystectomy. She can not get an MRCP due to PPM. PD is 3 mm on sono which is within normal limits for her age. No liver masses, and she has Liver cysts. Recommend: EUS as OP in 6 weeks in view of the current acute PE and risk of anesthesia. Recall GI if needed. (2) Liver lesion: History of Present Illness Attending Physician: Madison Galvin MD History of Present Illness 80 years old female patietn admitted to the hospital for acute DVT/PE, had CVA a month ago and was transferred from [place] for new finding of LE DVT. GI consulted for CT scan findings of Liver lesions and dilated CBD post cholecystectomy h owever ultrasound abdomen showed liver lesions are actually liver cysts. Her LFTs are normal. She feels fine, denies any abdominal pain, nausea or vomiting, no diarrhea or constipation. Allergies Allergy/AdvReac Type Severity Reaction Status Date / Time iodine Allergy chills, Verified 05/17/21 09:35 burning sensation in neck vancomycin Allergy rash, Verified 05/17/21 09:35 nausea Home Medications Medication Instructions Recorded Confirmed Type albuterol sulfate 90 mcg/actuation 2 puffs INHALATION Q4H PRN gm 07/18/19 05/17/21 History aerosol inhaler cholecalciferol (vitamin D3) 50 2,000 units PO QAM cap 07/21/19 05/17/21 Hi story mcg (2,000 unit) capsule levothyroxine 137 mcg tablet 137 mcg PO DAILYBB tab 07/21/19 05/17/21 History aspirin [Adult Low Dose Aspirin] 81 mg PO QAM 05/02/21 05/17/21 History duloxetine [Cymbalta] 20 mg PO QAM 05/02/21 05/17/21 History fluticasone furoate-vilanterol 1 inh INHALATION QAM 05/02/21 05/17/21 History [Breo Ellipta] lisinopril 40 mg PO QAM 05/02/21 05/17/21 History nitroglycerin [Nitrostat] 0.4 mg SUBLINGUAL DIRECTED PRN 05/02/21 05/17/21 History potassium chloride 30 meq PO QAM 05/02/21 05/17/21 History atorvastatin [Lipitor] 40 mg PO HS 05/17/21 05/17/21 History baclofen 5 mg PO BID 05/17/21 05/17/21 History calcium carbonate 500 mg PO QID 05/17/21 05/17/21 History diazepam 1 mg PO HS 05/17/21 05/17/21 History docusate sodium 100 mg PO BID 05/17/21 05/17/21 History doxazosin [Cardura] 2 mg PO HS 05/17/21 05/17/21 History folic acid 2 mg PO QAM 05/17/21 05/17/21 History gabapentin 200 mg PO Q8H 05/17/21 05/17/21 History melatonin 3 mg PO HS 05/17/21 05/17/21 History metoprolol tartrate 50 mg PO Q12H 05/17/21 05/17/21 History pantoprazole 40 mg PO DAILYBB 05/17/21 05/17/21 History polyethylene glycol 3350 [Miralax] 17 g PO QDL PRN 05/17/21 05/17/21 History sennosides-docusate sodium 1 tab-cap PO QDL PRN 05/17/21 05/17/21 History [Senokot-S] torsemide 10 mg PO QAM 05/17/21 05/17/21 History Patient History Medical History (Updated 05/18/21 @ 13:02 by Josafat Mcconnell MD) Allergic rhinitis Asthma Atrial fibrillation diagnosis in mid Hypertension Hypothyroid 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 [facility] Jeff. date - 2016? Pacemaker 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 Surgical History (Updated 05/17/21 @ 12:29 by Ramsey Cabrera) H/O: hysterectomy History of colonoscopy 2011 - normal, no polyps S/P BSO (bilateral salpingo-oophorectomy) S/P lumbar spinal fusion Family History (Updated 05/17/21 @ 12:29 by Ramsey Cabrera) Mother , from "respiratory failure" Congestive heart failure Myocardial infarction Father , about age 80 from pneumonia Hypertension COPD (chronic obstructive pulmonary disease) Daughter Colorectal cancer Denies family history of Stroke Social History (Updated 05/17/21 @ 12:19 by Ramsey Cabrera) Smoking Status: Unknown if ever smoked Tobacco Type: Cigarettes packs per day: 0.5; Years Smoked: 20; Smoking End Date: ; Hx Alcohol Use: No Hx Substance Use: No Preferred Language: Japanese Communication Ability: Effective Ecommerce Manager Required: No Beliefs That Will Affect Care: None marital status: Current Living Situation: Rehab Current Living Situation Comment: lives with daughter and son-in-law -- [place] current occupational status: retired current occupation: worked for [employer] How many Children do You have: 3 How many Children do You have Comment: 2 daughters, 1 son Other Information That Helps Us Care for You: No other: originally from [facility]. Feels Safe at Home: Yes Safety Concerns: Feels Safe At This Time Review of Systems Constitutional: no fever, no chills, no fatigue and no weight loss Eyes: no eye pain and no worsening vision Ear, Nose, Mouth, Throat: no tinnitus, no dizziness, no nasal discharge and no epistaxis Respiratory: no cough, no dyspnea, no dyspnea on exertion and no wheezing Cardiovascular: no chest pain, no orthopnea, no palpitations and no edema Gastrointestinal: as per Subjective / HPI Genitourinary: no dysuria, no urinary frequency, no urinary incontinence and no hematuria Musculoskeletal: no stiffness and no myalgia Neurologic: no tremor(s) and no headache(s) Endocrine: no polydipsia and no polyuria Hematologic / Lymphatic: no easy bleeding and no night sweats Physical Exam Constitutional: + well hydrated, cooperative and comfortable Eyes: PERRL, conjunctivae normal, anicteric sclerae ENMT: external ear and nose normal, oropharynx normal Neck: normal visual inspection and trachea midline Respiratory: normal respiratory effort, lungs clear to auscultation Auscultation: no wheezes Cardiovascular: RRR, no murmur, no edema Gastrointestinal (Abdomen): normal bowel sounds, soft, nontender, no hepat osplenomegaly Skin: no rashes, warm and dry Neurologic: awake; no focal motor deficits Motor/Sensory: no tremor Results & Data ([facility]) Vital Signs (Past 12 Hours) Vital Signs Temp Pulse Pulse Resp BP Pulse Ox 05/18/21 11:05 36.5 C 80 18 113/70 98 05/18/21 08:00 85 05/18/21 07:28 36.4 C L 85 17 138/71 97 05/18/21 03:19 36.4 C L 84 16 148/66 H 98 Laboratory Results Laboratory Results - last 24 hr 05/17/21 05/17/21 05/17/21 15:20 17:29 21:45 WBC RBC Hgb Hct MCV MCH MCHC RDW Std Deviation RDW Coeff of Niyah Plt Count MPV APTT 47.9 H* PTT Ratio 1.8 Sodium Potassium Chloride Carbon Dioxide Anion Gap BUN Creatinine Est Cr Clr Drug Dosing Est GFR ( Amer) Est GFR (Non-Af Amer) BUN/Creatinine Ratio Glucose Calcium Iron Transferrin Transferrin % Sat Ferritin Total Bilirubin Direct Bilirubin AST ALT Alkaline Phosphatase Troponin I Total Protein Albumin TSH Urine Color Yellow Urine Appearance Turbid A Urine pH 5.5 Ur Specific [place] > 1.045 H Urine Protein Trace H Urine Glucose (UA) Negative Urine Ketones Negative Urine Blood 1+ H Urine Nitrite Positive A Urine Bilirubin Negative Urine Urobilinogen Negative Ur Leukocyte Esterase 2+ H Urine WBC (Auto) >30 H Urine RBC (Auto) 0-4 U Hyaline Cast (Auto) 1-5 U Epithel Cells (Auto) 10-20 H Urine Bacteria (Auto) 4+ H Urine Yeast Not Reportable Nasal Screen MRSA (PCR) Negative 05/18/21 05/18/21 05/18/21 06:44 06:44 06:44 WBC 10.78 RBC 2.93 L Hgb 9.5 L Hct 28.0 L MCV 95.6 MCH 32.4 MCHC 33.9 RDW Std Deviation 65.9 H RDW Coeff of Niyah 19.8 H Plt Count 527 H MPV 8.8 APTT 97.4 H* PTT Ratio 3.7 Sodium 130 L Potassium 4.8 Chloride 98 Carbon Dioxide 27 Anion Gap 5.0 BUN 19 H Creatinine 0.71 Est Cr Clr Drug Dosing 59.6 Est GFR ( Amer) 93.9 Est GFR (Non-Af Amer) 81.0 BUN/Creatinine Ratio 26.4 H Glucose 103 H Calcium 9.3 Iron 56 Transferrin 249 Transferrin % Sat 16 Ferritin 297.3 Total Bilirubin Direct Bilirubin AST ALT Alkaline Phosphatase Troponin I Total Protein Albumin TSH 7.000 H Urine Color Urine Appearance Urine pH Ur Specific [place] Urine Protein Urine Glucose (UA) Urine Ketones Urine Blood Urine Nitrite Urine Bilirubin Urine Urobilinogen Ur Leukocyte Esterase Urine WBC (Auto) Urine RBC (Auto) U Hyaline Cast (Auto) U Epithel Cells (Auto) Urine Bacteria (Auto) Urine Yeast Nasal Screen MRSA (PCR) 05/18/21 06:44 WBC RBC Hgb Hct MCV MCH MCHC RDW Std Deviation RDW Coeff of Niyah Plt Count MPV APTT PTT Ratio Sodium Potassium Chloride Carbon Dioxide Anion Gap BUN Creatinine Est Cr Clr Drug Dosing Est GFR ( Amer) Est GFR (Non-Af Amer) BUN/Creatinine Ratio Glucose Calcium Iron Transferrin Transferrin % Sat Ferritin Total Bilirubin 0.9 D Direct Bilirubin 0.3 H AST 29 ALT 70 Alkaline Phosphatase 89 Troponin I 0.103 H* Total Protein 6.1 L Albumin 2.9 L TSH Urine Color Urine Appearance Urine pH Ur Specific [place] Urine Protein Urine Glucose (UA) Urine Ketones Urine Blood Urine Nitrite Urine Bilirubin Urine Urobilinogen Ur Leukocyte Esterase Urine WBC (Auto) Urine RBC (Auto) U Hyaline Cast (Auto) U Epithel Cells (Auto) Urine Bacteria (Auto) Urine Yeast Nasal Screen MRSA (PCR)
[2021-05-18 15:29] LABS: Partial Thromboplastin Ratio 2.3
[2021-05-18 15:36] LABS: Partial Thromboplastin Time 61.6 Seconds (21.0-31.0)
--- NOTE | 2021-05-18 19:58 | Hospitalist Progress Note ---
Date of Service May 18, 2021 Assessment & Plan (1) Pulmonary emboli: Right sided PEs with LLE DVT. Risk factors - prolonged immobility of the left leg. Do not suspect occult cancer, but could be explored further as an outpatient. Liver lesions are simply benign cysts Admitting hospitalist contacted [facility] and spoke with their on- call neurosurgeon. 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 Discussed recent CVA (presumed embolic from a.fib). Discussed recent CTA head/neck showing healthy vessels - specifically, no dissection, aneurysm, AVM, etc seen. It was felt that the risks of not treating the PEs/DVT outweigh the risks of recurrent bleeding from a tiny intracerebral AVM. Thus, will continue heparin infusion per protocol. -Add Coumadin 5 mg daily and continue bridging with heparin, could convert to Lovenox at time of discharge if INR not therapeutic Discussed care with patient and her daughter, Kristian, on the phone. Use of Coumadin just in case need for reversibility, however doubt she will have issues with spontaneous ICH Checked echocardiogram-no evidence of right heart strain -Consideration given for IVC filter, however do not feel this is necessary at this time-cancel vascular surgery consultation (2) DVT (deep venous thrombosis): LLE -- see above. 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 resulting severe weakness of the LLE and, to a degrees, mild LUE weakness. patient is left-handed. presumed embolic from her chronic, permanent a.fib./Flutter for secondary reduction of stroke will now be on systemic anticoagulation with heparin/Coumadin as above. Have discontinued aspirin. continue lipitor 40mg daily. -She will need continued PT/OT after discharge -She should also have follow-up with stroke neurologist at [facility] after discharge She has had significant left lower extremity neuropathic pain since the stroke -Continue Cymbalta but increase to 30 mg, continue gabapentin and could increase dose as needed, continue baclofen -Try to wean off IV Dilaudid for pain which she is using here, add oxycodone as needed -Requested records from [facility] (4) Atrial fibrillation: permanent. Rates are controlled cont metoprolol 50mg BID. Anticoagulation with heparin/Coumadin (5) Hypertension: BPs were low normal upon presentation and home blood pressure medications were held Blood pressures today are now normal -Will consider restarting home meds of lisinopril, doxazosin, and torsemide in the morning. (6) Hypothyroid: TSH level here elevated at 7.0 cont synthroid but increase the dose to 150 mcg daily Follow-up TFTs in 6 weeks (7) Intracranial hemorrhage: history of such. 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 on all studies of the brain recently completed there are no AVMs or aneurysms seen. 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 Follows with [facility] cardiology team (9) Diarrhea: stop constipation aids. She has not had any bowel movements since admission (10) Weight loss: Even prior to the patient's stroke she had been having weight loss, early satiety, and changing bowel habits. The weight loss is concerning for occult malignancy. Liver lesions are benign cysts -Ensure up-to-date on colonoscopy as an outpatient and perhaps consider EGD She is to have EUS as an outpatient in 6 weeks with GI (11) Anemia: Iron studies here are normal on 05/02/21 her Hb was 12. Hb now 9 much of the drop could be 2nd to frequent blood draws, bruising on left leg (extensive), etc. from her recent hospitalization stool was HEME NEGATIVE on examination here Hemoglobin stable today despite being on heparin drip Follow CBC in the morning (12) Liver lesion: numerous lesions that are benign cysts along with CBD dilatation seen on CT abdomen/pelvis. Right upper quadrant ultrasound showed CBD 1.1 cm and pancreatic duct mildly dilated 3 mm Appreciate GI consultation-not overly concerned about this but plan for EUS in 6 weeks (13) UTI (urinary tract infection): u/a suggestive of UTI. at risk of nosocomial pathogens. With cystitis on CT abdomen/pelvis With urine culture growing gram-negative rods Continue Rocephin and follow urine culture (14) Asthma: not active at this time (15) Anxiety: Secondary to medical illness and hospitalization Start lorazepam 0.5 mg p.o. every 8 hours as needed Increase Cymbalta to 30 mg daily (16) Elevated troponin: Troponin elevated at 0.13, repeat down to 0.10 Echocardiogram without wall motion abnormalities This is most likely secondary to PE (17) Pulmonary nodule: Multiple pulmonary nodules seen, the largest is [address] chest in 3 months (18) Complex care coordination: called and spoke with pt's daughter Kristian- gave extensive update by phone. Disposition-continued stay in PCU Admission and Anticipated Discharge Date Admission Date: May 17, 2021 Subjective Patient tearful when I saw her. She has been having chronic pain from the left groin down the left leg since her stroke 2 weeks ago, however her daughter informs me on the phone that the patient has had chronic left lower extremity pain with a history of back surgery for many years. She also used to take cough syrup with codeine on a daily basis as well as Ambien on a nightly basis prior to having her stroke and she has not had either of those since. She is not having any issues with bleeding here. Patient is extremely anxious and asked for something for anxiety. She is tearful and says more than once throughout the conversation "I just do not know what is going on." I explained everything to her in full detail and she seemed understand and asked good questions about her care. She is agreeable to taking Coumadin in case of need for reversibility with her history of intracranial hemorrhage. Her daughter that I talked on the phone also thinks that the patient is not retaining information because she has been taking IV opioids. Telemetry with atrial flutter and paced rhythm with rates in the 80s to 90s I discussed her care with her daughter on the phone. I also discussed her care with GI. I discussed her care with the admitting hospitalist to talk to the neurosurgeon at [facility]. Review of Systems Review of Systems: All systems reviewed & are unremarkable except as noted in HPI & below Physical Exam Constitutional: + thin; no acute distress Eyes: + anicteric sclerae Neck: trachea midline, no thyromegaly Respiratory: normal respiratory effort, lungs clear to auscultation Cardiovascular: Rate/Rhythm: regular rate and + irregularly irregular Heart Sounds: no murmur Extremities: + edema (Left lower extremity with 1+ pitting edema) Chest (Breasts): Chest: normal inspection of chest Gastrointestinal (Abdomen): normal bowel sounds, soft, nontender, no hepatosplenomegaly Musculoskeletal: Extremities: no cyanosis and no clubbing Skin: + ecchymosis (Extensive down lateral side of entire left lower extremity) Neurologic: CN's II-XI intact bilaterally, + focal motor deficit (4/5 strength in LUE, 3/5 strength in LLE) and awake Speech / Cognition: normal speech and no expressive aphasia Psychiatric: Orientation: alert and oriented x 3 Speech: normal rate /rhythm/volume of speech Affect: + tearful affect Lymphatic: no lymphedema Results & Data Results & Data ([facility]) Vital Signs (Past 12 Hours) Vital Signs Temp Pulse Pulse Resp BP Pulse Ox 05/18/21 15:44 36.4 C L 84 17 124/65 98 05/18/21 11:05 36.5 C 80 18 113/70 98 05/18/21 08:00 85 Laboratory Results 05/18/21 05/18/21 05/18/21 Range/Units 14:18 06:44 06:44 WBC (4.8-10.8) K/uL RBC (4.2-5.4) M/uL Hgb (12.0-16.0) g/dL Hct (37-47) % MCV (80-100) fL MCH (25-34) pg MCHC (32-36) g/dL RDW Std Deviation (36.4-46.3) fL RDW Coeff of Niyah (11.5-14.5) % Plt Count (130-400) K/uL MPV (7.4-10.4) fL APTT 61.6 H* 97.4 H* (21.0-31.0) Seconds PTT Ratio 2.3 3.7 Sodium (136-145) mmol/L Potassium (3.5-5.1) mmol/L Chloride (98-107) mmol/L Carbon Dioxide (21-32) mmol/L Anion Gap (3-11) BUN (7-18) mg/dl Creatinine (0.6-1.2) mg/dl Est Cr Clr Drug Dosing ml/min Est GFR ( Amer) ml/min Est GFR (Non-Af Amer) ml/min BUN/Creatinine Ratio (10-20) Glucose (70-99) mg/dl Calcium (8.5-10.1) mg/dl Iron (35-150) mcg/dl Transferrin (200-360) mg/dl Transferrin % Sat (15-50) % Ferritin (8-388) ng/ml Total Bilirubin 0.9 D (0.2-1) mg/dl Direct Bilirubin 0.3 H (0-0.2) mg/dl AST 29 (15-37) U/L ALT 70 (12-78) U/L Alkaline Phosphatase 89 (45-117) U/L Troponin I 0.103 H* (0-0.045) ng/ml Total Protein 6.1 L (6.4-8.2) gm/dl Albumin 2.9 L (3.4-5.0) gm/dl TSH (0.300-4.500) uIu/ml Urine Color Urine Appearance (Clear) Urine pH (4.5-7.5) Ur Specific [place] (1.000-1.030) Urine Protein (Negative) Urine Glucose (UA) (Negative) Urine Ketones (Negative) Urine Blood (Negative) Urine Nitrite (Negative) Urine Bilirubin (Negative) Urine Urobilinogen (Negative) Ur Leukocyte Esterase (Negative) Urine WBC (Auto) (0-5) /hpf Urine RBC (Auto) (0-4) /hpf U Hyaline Cast (Auto) (0-5) /lpf U Epithel Cells (Auto) (0-5) /lpf Urine Bacteria (Auto) (Negative) Urine Yeast 05/18/21 05/18/21 05/17/21 Range/Units 06:44 06:44 21:45 WBC 10.78 (4.8-10.8) K/uL RBC 2.93 L (4.2-5.4) M/uL Hgb 9.5 L (12.0-16.0) g/dL Hct 28.0 L (37-47) % MCV 95.6 (80-100) fL MCH 32.4 (25-34) pg MCHC 33.9 (32-36) g/dL RDW Std Deviation 65.9 H (36.4-46.3) fL RDW Coeff of Niyah 19.8 H (11.5-14.5) % Plt Count 527 H (130-400) K/uL MPV 8.8 (7.4-10.4) fL APTT (21.0-31.0) Seconds PTT Ratio Sodium 130 L (136-145) mmol/L Potassium 4.8 (3.5-5.1) mmol/L Chloride 98 (98-107) mmol/L Carbon Dioxide 27 (21-32) mmol/L Anion Gap 5.0 (3-11) BUN 19 H (7-18) mg/dl Creatinine 0.71 (0.6-1.2) mg/dl Est Cr Clr Drug Dosing 59.6 ml/min Est GFR ( Amer) 93.9 ml/min Est GFR (Non-Af Amer) 81.0 ml/min BUN/Creatinine Ratio 26.4 H (10-20) Glucose 103 H (70-99) mg/dl Calcium 9.3 (8.5-10.1) mg/dl Iron 56 (35-150) mcg/dl Transferrin 249 (200-360) mg/dl Transferrin % Sat 16 (15-50) % Ferritin 297.3 (8-388) ng/ml Total Bilirubin (0.2-1) mg/dl Direct Bilirubin (0-0.2) mg/dl AST (15-37) U/L ALT (12-78) U/L Alkaline Phosphatase (45-117) U/L Troponin I (0-0.045) ng/ml Total Protein (6.4-8.2) gm/dl Albumin (3.4-5.0) gm/dl TSH 7.000 H (0.300-4.500) uIu/ml Urine Color Yellow Urine Appearance Turbid A (Clear) Urine pH 5.5 (4.5-7.5) Ur Specific [place] > 1.045 H (1.000-1.030) Urine Protein Trace H (Negative) Urine Glucose (UA) Negative (Negative) Urine Ketones Negative (Negative) Urine Blood 1+ H (Negative) Urine Nitrite Positive A (Negative) Urine Bilirubin Negative (Negative) Urine Urobilinogen Negative (Negative) Ur Leukocyte Esterase 2+ H (Negative) Urine WBC (Auto) >30 H (0-5) /hpf Urine RBC (Auto) 0-4 (0-4) /hpf U Hyaline Cast (Auto) 1-5 (0-5) /lpf U Epithel Cells (Auto) 10-20 H (0-5) /lpf Urine Bacteria (Auto) 4+ H (Negative) Urine Yeast Not Reportable PG Care Time/CCT Total # of Minutes Spent Total Time Spent with Patient: Total time spent is greater than 50% in coordination of care (as documented) at patient's floor/unit and/or counseling patient: Prolonged Care Time Prolonged Care Time: Yes Total Prolonged Care Time: 60 I spent 60 minutes in prolonged care time discussing care with patient, reviewing studies, discussing care with specialists and family members and coordinating care Coding Level of Care Code 86166 Subseq Hosp Care Lvl 3 (25 - SIGNIFICANT, SEPARATELY IDENTIFIABLE ) Diagnoses Pulmonary emboli I26.99 Acute cor pulmonale presence: unspecified Chronicity: unspecified Pulmonary embolism type: unspecified DVT (deep venous thrombosis) I82.402 Affected thrombotic vein of extremity: unspecified vein of extremity Chronicity: acute DVT location: lower extremity Laterality: left Stroke I63.9 Atrial fibrillation I48.91 Hypertension I10 Hypothyroid E03.9 Intracranial hemorrhage I62.9 Pacemaker Z95.0 Diarrhea R19.7 Weight loss R63.4 Anemia D64.9 Liver lesion K76.9 UTI (urinary tract infection) N39.0 Asthma J45.909 Anxiety F41.9 Elevated troponin R77.8 Pulmonary nodule R91.1 Complex care coordination Z71.89 Additional Codes Prolonged Care Time - Prolonged Care Time: Yes ([id number]) (1) DVT (deep venous thrombosis) Affected thrombotic vein of extremity: unspecified vein of extremity C hronicity: acute DVT location: lower extremity Laterality: left Qualified Code(s): I82.402 - Acute embolism and thrombosis of unspecified deep veins of left lower extremity (2) Pulmonary emboli Acute cor pulmonale presence: unspecified Chronicity: unspecified Pulmonary embolism type: unspecified Qualified Code(s): I26.99 - Other pulmonary embolism without acute cor pulmonale
[2021-05-18] MEDS: ACETAMINOPHEN 325 MG TAB PO PRN (20:15)
[2021-05-18] MEDS: ATORVASTATIN 40 MG TAB PO SCH (20:16)
[2021-05-18] MEDS: MELATONIN 3 MG TAB PO SCH (20:17)
[2021-05-18] MEDS: LORazepam 0.5 MG TAB PO PRN (20:35)
[2021-05-18] MEDS: WARFARIN SOD 5 MG TAB PO SCH (21:42)
[2021-05-19] MEDS: ACETAMINOPHEN 325 MG TAB PO PRN ×2 (03:37→20:34)
[2021-05-19] MEDS: oxyCODONE HCL IR 5 MG TAB (IMMEDIATE RELEASE) PO PRN ×3 (03:38→20:33)
[2021-05-19] MEDS: GABAPENTIN 100 MG CAP PO SCH (05:09)
[2021-05-19] MEDS: PANTOprazole 40 MG TAB PO SCH (05:09)
[2021-05-19] MEDS: LEVOTHYROXINE SODIUM 150 MCG TABLET PO SCH (05:10)
[2021-05-19 08:06] LABS: Basophils # (auto) 0.03 K/uL (0-0.2); Basophils % (auto) 0.4 %; Eosinophils # (auto) 0.08 K/uL (0-0.5); Eosinophils % (auto) 1.2 %; Hematocrit (blood only) 28.1 % (37-47); Hemoglobin 9.2 g/dL (12.0-16.0); Immature Granulocytes # (auto) 0.05 K/uL (0.00-0.02); Immature Granulocytes % (auto) 0.7 %; Lymphocytes # (auto) 1.78 K/uL (1.2-3.4); Lymphocytes % (auto) 25.9 %; Mean Corpuscular Hemoglobin 32.4 pg (25-34); Mean Corpuscular Hgb Conc 32.7 g/dL (32-36); Mean Corpuscular Volume 98.9 fL (80-100); Mean Platelet Volume 8.7 fL (7.4-10.4); Monocytes # (auto) 0.49 K/uL (0.11-0.59); Monocytes % (auto) 7.1 %; Neutrophils # (auto) 4.44 K/uL (1.4-6.5); Neutrophils % (auto) 64.7 %; Platelet Count 562 K/uL (130-400); RDW Coefficient of Variation 19.8 % (11.5-14.5); RDW Standard Deviation 69.7 fL (36.4-46.3); Red Blood Count 2.84 M/uL (4.2-5.4); White Blood Count 6.87 K/uL (4.8-10.8)
[2021-05-19 08:15] LABS: Partial Thromboplastin Ratio 2.4; Partial Thromboplastin Time 62.9 Seconds (21.0-31.0); Prothrombin Time 10.1 Seconds (9.0-12.0)
[2021-05-19 08:17] LABS: Albumin Level 2.9 gm/dl (3.4-5.0); Creatinine Clr Calc Pharmacy 61.5 ml/min; Est GFR (African American) 96.4 ml/min; Est GFR (Non-African American) 83.2 ml/min; Magnesium 2.1 mg/dl (1.8-2.4); Potassium 4.8 mmol/L (3.5-5.1)
[2021-05-19 08:19] LABS: Albumin Globulin Ratio 0.9 (0.9-2); Bilirubin,Total 0.9 mg/dl (0.2-1); Globulin 3.1 gm/dl (2.5-4.0)
[2021-05-19] MEDS: HYDROmorphone INJ 0.5 MG/0.5 ML SYR IV PRN ×2 (08:21→17:30)
[2021-05-19] MEDS: cefTRIAXone SODIUM 1,000 MG in DEXTROSE 5% 50 ML IV SCH (08:22)
[2021-05-19] MEDS: CHOLECALCIFEROL 1,000 UNITS 25 MCG TAB PO SCH (08:23)
[2021-05-19] MEDS: BACLOFEN 10 MG TAB PO SCH ×2 (08:23→20:36)
[2021-05-19] MEDS: DULoxetine HCL 30 MG CAP PO SCH (08:23)
[2021-05-19] MEDS: CALCIUM CARBONATE 500 MG CHEWABLE TAB PO SCH ×4 (08:24→20:34)
[2021-05-19] MEDS: METOPROLOL TARTRATE 50 MG TAB PO SCH ×2 (08:24→20:35)
[2021-05-19] MEDS: FLUTICASONE/VILANTEROL 200/25MCG 14 PUFFS/INHALER INH SCH (08:24)
[2021-05-19] MEDS: FOLIC ACID 1 MG TAB PO SCH (08:24)
[2021-05-19] MEDS: HEPARIN SODIUM/DEXTROSE 25,000 UNITS/500 ML BAG IV SCH (09:50)
--- NOTE | 2021-05-19 12:45 | Hospitalist Progress Note ---
Date of Service May 19, 2021 Assessment & Plan (1) Pulmonary emboli: Right sided PEs with LLE DVT. Risk factors - prolonged immobility of the left leg. Do not suspect occult cancer, but could be explored further as an outpatient. Liver lesions are simply benign cysts Admitting hospitalist contacted [facility] and spoke with their on- call neurosurgeon. 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 Discussed recent CVA (presumed embolic from a.fib). Discussed recent CTA head/neck showing healthy vessels - specifically, no dissection, aneurysm, AVM, etc seen. It was felt that the risks of not treating the PEs/DVT outweigh the risks of recurrent bleeding from a tiny intracerebral AVM. Thus, will continue heparin infusion per protocol. -Started Coumadin 5 mg daily on 05/18 and continue bridging with heparin; could convert to Lovenox at time of discharge if INR not therapeutic Use of Coumadin just in case need for reversibility given h/o small ICH in 2006, however, doubt she will have issues with spontaneous ICH -follow INR Checked echocardiogram-no evidence of right heart strain -Consideration given for IVC filter, however do not feel this is necessary at this time-cancel vascular surgery consultation (2) DVT (deep venous thrombosis): LLE -- see above. 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 resulting severe weakness of the LLE and, to a degrees, mild LUE weakness. patient is left-handed. presumed embolic from her chronic, permanent a.fib./Flutter for secondary reduction of stroke will now be on systemic anticoagulation with heparin/Coumadin as above. Have discontinued aspirin since starting on coumadin. continue lipitor 40mg daily. -She will need continued PT/OT after discharge -She should also have follow-up with stroke neurologist at [place] after discharge She has had significant left lower extremity neuropathic pain since the stroke -Continue Cymbalta but increased to 30 mg, continue gabapentin and increase dose to 300mg po tid -continue baclofen -Try to wean off IV Dilaudid for pain which she is using here, add oxycodone as needed -Requested records from [place] (4) Atrial fibrillation: permanent. Rates are controlled cont metoprolol 50mg BID. Anticoagulation with heparin/Coumadin (5) Hypertension: BPs were low normal upon presentation and home blood pressure medications were held Blood pressures today are now normal -Will restart home med of lisinopril -continue to hold doxazosin, and torsemide (6) Hypothyroid: TSH level here elevated at 7.0 cont synthroid but increase the dose to 150 mcg daily Follow-up TFTs in 6 weeks (7) Intracranial hemorrhage: history of such. 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 on all studies of the brain recently completed there are no AVMs or aneurysms seen. 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 Follows with [facility] cardiology team (9) Diarrhea: was having this but now no BM in 6 days -restart senna/docusate (10) Weight loss: Even prior to the patient's stroke she had been having weight loss, early satiety, and changing bowel habits. The weight loss is concerning for occult malignancy. Liver lesions are benign cysts -last colonoscopy 2011 she reports was normal-consider repeat as an outpatient and perhaps consider EGD She is to have EUS as an outpatient in 6 weeks with GI (11) Anemia: Iron studies here are normal on 05/02/21 her Hb was 12. Hb now 9 but stable much of the drop could be 2nd to frequent blood draws, bruising on left leg (extensive), etc. from her recent hospitalization stool was HEME NEGATIVE on examination here Hemoglobin stable today despite being on heparin drip Follow CBC in the morning (12) Liver lesion: numerous lesions that are benign cysts along with CBD dilatation seen on CT abdomen/pelvis. Right upper quadrant ultrasound showed CBD 1.1 cm and pancreatic duct mildly dilated 3 mm Appreciate GI consultation-not overly concerned about this but plan for EUS in 6 weeks (13) UTI (urinary tract infection): u/a suggestive of UTI. at risk of nosocomial pathogens. With cystitis on CT abdomen/pelvis With urine culture growing E. coli pansensitive and a second GNR pending Continue Rocephin and follow urine culture (14) Asthma: not active at this time continue albuterol prn, ICS/LABA (15) Anxiety: Secondary to medical illness and hospitalization Started lorazepam 0.5 mg p.o. 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 Increased Cymbalta to 30 mg daily (16) Elevated troponin: Troponin elevated at 0.13, repeat down to 0.10 Echocardiogram without wall motion abnormalities This is most likely secondary to PE (17) Pulmonary nodule: Multiple pulmonary nodules seen, the largest is [address] chest in 3 months (18) Complex care coordination: Disposition-continued stay in PCU, possible dc to [facility] on Thursday if approved by insurance Admission and Anticipated Discharge Date Admission Date: May 17, 2021 Subjective Pt reports pain is better controlled in leg today, not tearful like yesterday, but does ask for the "IV medicine" to help her sleep at night. Did not sleep again last night. Reports feeling some chest pressure off and on last night but it went away on its own and she believes was related to anxiety. Denies SOB. SHe was happy she got OOB with PT today and wishes she could get out of bed more often. Tele with atrial fib and paced rhythm, rates 70-80s Review of Systems Review of Systems: All systems reviewed & are unremarkable except as noted in HPI & below +constipation Physical Exam Constitutional: + thin; no acute distress Eyes: + anicteric sclerae Neck: trachea midline, no thyromegaly Respiratory: normal respiratory effort, lungs clear to auscultation Cardiovascular: Rate/Rhythm: regular rate and + irregularly irregular Heart Sounds: no murmur Extremities: + edema (Left lower extremity with 1+ pitting edema) Chest (Breasts): Chest: normal inspection of chest Gastrointestinal (Abdomen): normal bowel sounds, soft, nontender, no hepatosplenomegaly Musculoskeletal: Extremities: no cyanosis and no clubbing Skin: + ecchymosis (Extensive down lateral side of entire left lower extremity) Neurologic: + focal motor deficit (4/5 strength in LUE, 3/5 strength in LLE) and awake Speech / Cognition: normal speech and no expressive aphasia Psychiatric: Orientation: alert and oriented x 3 Speech: normal rate/rhythm/volume of speech Lymphatic: no lymphedema Results & Data Results & Data ([facility]) Vital Signs (Past 12 Hours) Vital Signs Temp Pulse Resp BP BP Pulse Ox 05/19/21 10:23 36.5 C 81 17 127/73 98 05/19/21 07:53 36.6 C 97 H 18 147/77 H 97 05/19/21 03:34 36.7 C 77 21 137/68 97 Laboratory Results 05/19/21 05/19/21 05/19/21 Range/Units 07:44 07:34 07:33 WBC 6.87 (4.8-10.8) K/uL RBC 2.84 L (4.2-5.4) M/uL Hgb 9.2 L (12.0-16.0) g/dL Hct 28.1 L (37-47) % MCV 98.9 (80-100) fL MCH 32.4 (25-34) pg MCHC 32.7 (32-36) g/dL RDW Std Deviation 69.7 H (36.4-46.3) fL RDW Coeff of Niyah 19.8 H (11.5-14.5) % Plt Count 562 H (130-400) K/uL MPV 8.7 (7.4-10.4) fL Immature Gran % (Auto) 0.7 % Neut % (Auto) 64.7 % Lymph % (Auto) 25.9 % Johnson % (Auto) 7.1 % Eos % (Auto) 1.2 % Baso % (Auto) 0.4 % Neut # (Auto) 4.44 (1.4-6.5) K/uL Lymph # (Auto) 1.78 (1.2-3.4) K/uL Johnson # (Auto) 0.49 (0.11-0.59) K/uL Eos # (Auto) 0.08 (0-0.5) K/uL Baso # (Auto) 0.03 (0-0.2) K/uL Immature Gran # (Auto) 0.05 H (0.00-0.02) K/uL PT 10.1 (9.0-12.0) Seconds INR 1.0 (0.9-1.1) APTT 62.9 H* (21.0-31.0) Seconds PTT Ratio 2.4 Sodium 133 L (136-145) mmol/L Potassium 4.8 (3.5-5.1) mmol/L Chloride 102 (98-107) mmol/L Carbon Dioxide 26 (21-32) mmol/L Anion Gap 5.0 (3-11) BUN 20 H (7-18) mg/dl Creatinine 0.68 (0.6-1.2) mg/dl Est Cr Clr Drug Dosing 61.5 ml/min Est GFR ( Amer) 96.4 ml/min Est GFR (Non-Af Amer) 83.2 ml/min BUN/Creatinine Ratio 29.0 H (10-20) Glucose 80 (70-99) mg/dl Calcium 10.0 (8.5-10.1) mg/dl Magnesium 2.1 (1.8-2.4) mg/dl Total Bilirubin 0.9 (0.2-1) mg/dl AST 30 (15-37) U/L ALT 61 (12-78) U/L Alkaline Phosphatase 89 (45-117) U/L Total Creatine Kinase 184 (26-192) U/L Total Protein 6.0 L (6.4-8.2) gm/dl Albumin 2.9 L (3.4-5.0) gm/dl Globulin 3.1 (2.5-4.0) gm/dl Albumin/Globulin Ratio 0.9 (0.9-2) 05/18/21 Range/Units 14:18 WBC (4.8-10.8) K/uL RBC (4.2-5.4) M/uL Hgb (12.0-16.0) g/dL Hct (37-47) % MCV (80-100) fL MCH (25-34) pg MCHC (32-36) g/dL RDW Std Deviation (36.4-46.3) fL RDW Coeff of Niyah (11.5-14.5) % Plt Count (130-400) K/uL MPV (7.4-10.4) fL Immature Gran % (Auto) % Neut % (Auto) % Lymph % (Auto) % Johnson % (Auto) % Eos % (Auto) % Baso % (Auto) % Neut # (Auto) (1.4-6.5) K/uL Lymph # (Auto) (1.2-3.4) K/uL Johnson # (Auto) (0.11-0.59) K/uL Eos # (Auto) (0-0.5) K/uL Baso # (Auto) (0-0.2) K/uL Immature Gran # (Auto) (0.00-0.02) K/uL PT (9.0-12.0) Seconds INR (0.9-1.1) APTT 61.6 H* (21.0-31.0) Seconds PTT Ratio 2.3 Sodium (136-145) mmol/L Potassium (3.5-5.1) mmol/L Chloride (98-107) mmol/L Carbon Dioxide (21-32) mmol/L Anion Gap (3-11) BUN (7-18) mg/dl Creatinine (0.6-1.2) mg/dl Est Cr Clr Drug Dosing ml/min Est GFR ( Amer) ml/min Est GFR (Non-Af Amer) ml/min BUN/Creatinine Ratio (10-20) Glucose (70-99) mg/dl Calcium (8.5-10.1) mg/dl Magnesium (1.8-2.4) mg/dl Total Bilirubin (0.2-1) mg/dl AST (15-37) U/L ALT (12-78) U/L Alkaline Phosphatase (45-117) U/L Total Creatine Kinase (26-192) U/L Total Protein (6.4-8.2) gm/dl Albumin (3.4-5.0) gm/dl Globulin (2.5-4.0) gm/dl Albumin/Globulin Ratio (0.9-2) PG Care Time/CCT Total # of Minutes Spent Total Time Spent with Patient: Total time spent is greater than 50% in coordination of care (as documented) at patient's floor/unit and/or counseling patient: Coding Level of Care Code 44350 Subseq Hosp Care Lvl 3 Diagnoses Pulmonary emboli I26.99 Acute cor pulmonale presence: unspecified Chronicity: unspecified Pulmonary embolism type: unspecified DVT (deep venous thrombosis) I82.402 Affected thrombotic vein of extremity: unspecified vein of extremity Chronicity: acute DVT location: lower extremity Laterality: left Stroke I63.9 Atrial fibrillation I48.91 Hypertension I10 Hypothyroid E03.9 Intracranial hemorrhage I62.9 Pacemaker Z95.0 Diarrhea R19.7 Weight loss R63.4 Anemia D64.9 Liver lesion K76.9 UTI (urinary tract infection) N39.0 Asthma J45.909 Anxiety F41.9 Elevated troponin R77.8 Pulmonary nodule R91.1 Complex care coordination Z71.89 (1) Pulmonary emboli Acute cor pulmonale presence: unspecified Chronicity: unspecified Pulmonary embolism type: unspecified Qualified Code(s): I26.99 - Other pulmonary embolism without acute cor pulmonale (2) DVT (deep venous thrombosis) Affected thrombotic vein of extremity: unspecified vein of extremity Chronicity: acute DVT location: lower extremity Laterality: left Qualified Code(s): I82.402 - Acute embolism and thrombosis of unspecified deep veins of left lower extremity
[2021-05-19] MEDS: LORazepam 0.5 MG TAB PO PRN ×2 (13:14→22:39)
[2021-05-19] MEDS: DOCUSATE SODIUM/SENNA 50/8.6MG TAB PO SCH (13:19)
[2021-05-19] MEDS: GABAPENTIN 300 MG CAP PO SCH ×2 (13:19→20:36)
[2021-05-19] MEDS: WARFARIN SOD 5 MG TAB PO SCH (16:57)
[2021-05-19] MEDS: ATORVASTATIN 40 MG TAB PO SCH (20:35)
[2021-05-19] MEDS: MELATONIN 3 MG TAB PO SCH (20:35)
[2021-05-20] MEDS: PANTOprazole 40 MG TAB PO SCH (05:05)
[2021-05-20] MEDS: LEVOTHYROXINE SODIUM 150 MCG TABLET PO SCH (05:05)
[2021-05-20] MEDS: GABAPENTIN 300 MG CAP PO SCH ×3 (05:06→21:24)
[2021-05-20] MEDS: HYDROmorphone INJ 0.5 MG/0.5 ML SYR IV PRN ×2 (07:41→13:03)
[2021-05-20] MEDS: cefTRIAXone SODIUM 1,000 MG in DEXTROSE 5% 50 ML IV SCH (08:03)
[2021-05-20] MEDS: FOLIC ACID 1 MG TAB PO SCH (08:03)
[2021-05-20] MEDS: METOPROLOL TARTRATE 50 MG TAB PO SCH ×2 (08:03→19:34)
[2021-05-20] MEDS: BACLOFEN 10 MG TAB PO SCH ×2 (08:03→19:34)
[2021-05-20] MEDS: lisinopril 40 MG TAB PO SCH (08:04)
[2021-05-20] MEDS: CHOLECALCIFEROL 1,000 UNITS 25 MCG TAB PO SCH (08:04)
[2021-05-20] MEDS: CALCIUM CARBONATE 500 MG CHEWABLE TAB PO SCH ×4 (08:04→19:34)
[2021-05-20] MEDS: DULoxetine HCL 30 MG CAP PO SCH (08:04)
[2021-05-20] MEDS: FLUTICASONE/VILANTEROL 200/25MCG 14 PUFFS/INHALER INH SCH (08:05)
[2021-05-20] MEDS: DOCUSATE SODIUM/SENNA 50/8.6MG TAB PO SCH (08:08)
[2021-05-20 08:21] LABS: Basophils # (auto) 0.02 K/uL (0-0.2); Basophils % (auto) 0.3 %; Eosinophils % (auto) 1.6 %; Hematocrit (blood only) 30.7 % (37-47); Hemoglobin 10.3 g/dL (12.0-16.0); Immature Granulocytes # (auto) 0.05 K/uL (0.00-0.02); Immature Granulocytes % (auto) 0.8 %; Lymphocytes # (auto) 1.35 K/uL (1.2-3.4); Mean Corpuscular Hemoglobin 32.6 pg (25-34); Mean Corpuscular Hgb Conc 33.6 g/dL (32-36); Mean Corpuscular Volume 97.2 fL (80-100); Mean Platelet Volume 8.6 fL (7.4-10.4); Monocytes # (auto) 0.59 K/uL (0.11-0.59); Monocytes % (auto) 9.2 %; Neutrophils # (auto) 4.32 K/uL (1.4-6.5); Neutrophils % (auto) 67.1 %; Platelet Count 552 K/uL (130-400); RDW Standard Deviation 69.2 fL (36.4-46.3); Red Blood Count 3.16 M/uL (4.2-5.4); White Blood Count 6.43 K/uL (4.8-10.8)
[2021-05-20 08:44] LABS: INR 1.4 (0.9-1.1); Prothrombin Time 14.1 Seconds (9.0-12.0)
[2021-05-20 08:54] LABS: BUN Creatinine Ratio 24.1 (10-20); Calcium 9.7 mg/dl (8.5-10.1); Creatinine Clr Calc Pharmacy 64.4 ml/min; Est GFR (African American) 97.9 ml/min; Est GFR (Non-African American) 84.4 ml/min; Potassium 4.3 mmol/L (3.5-5.1)
[2021-05-20 08:58] LABS: Anisocytosis Present; Echinocytes 1+
[2021-05-20] MEDS: oxyCODONE HCL IR 5 MG TAB (IMMEDIATE RELEASE) PO PRN ×2 (09:34→21:24)
[2021-05-20 09:37] LABS: Partial Thromboplastin Time 78.9 Seconds (21.0-31.0)
[2021-05-20] MEDS: ACETAMINOPHEN 325 MG TAB PO PRN (10:02)
[2021-05-20] MEDS: HEPARIN SODIUM/DEXTROSE 25,000 UNITS/500 ML BAG IV SCH ×3 (11:00→19:19)
--- NOTE | 2021-05-20 14:02 | Hospitalist Progress Note ---
Date of Service May 20, 2021 Assessment & Plan (1) Pulmonary emboli: Right sided PEs with LLE DVT. Risk factors - prolonged immobility of the left leg. Do not suspect occult cancer, but could be explored further as an outpatient. Liver lesions are simply benign cysts. - Started Coumadin 5 mg daily on 05/18 and continue bridging with heparin - INR today is 1.4. (2) DVT (deep venous thrombosis): LLE -- see above. (3) Stroke: Large right-sided MCA territory stroke earlier this month. Resulting in severe weakness of the LLE and, to a degrees, mild LUE weakness. - Presumed embolic from her chronic, permanent a.fib./flutter - Warfarin as above - Continue Lipitor 40mg daily. - She should also have follow-up with stroke neurologist at [place] after discharge She has had significant left lower extremity neuropathic pain since the stroke. - Continue Cymbalta but increased to 30 mg, continue gabapentin and increase dose to 300mg PO TID - Continue baclofen - Try to wean off IV Dilaudid for pain which she is using here, add oxycodone as needed (4) Atrial fibrillation: Permanent. Rates are controlled. - Cont metoprolol 50mg BID. - Anticoagulation with heparin/Coumadin (5) Hypertension: BPs were low-normal upon presentation and home blood pressure medications were held. - Blood pressures today are now normal - Continue home med of lisinopril - Continue to hold doxazosin and torsemide (6) Hypothyroid: TSH level here elevated at 7.0. - Continue home Synthroid (7) Intracranial hemorrhage: History of such. Had this in ~2006 in [place], [place]. 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 Her bleeding event was so mild that she did not require hospitalization. - On all studies of the brain recently completed there are no AVMs or aneurysms seen. - Thought to be very low risk of recurrence (8) Pacemaker: Placed 2020 for tachy-elmira syndrome / symptomatic bradycardia - [facility]. - Follows with [facility] cardiology team (9) Weight loss: Even prior to the patient's stroke she had been having weight loss, early satiety, and changing bowel habits. The weight loss is concerning for occult malignancy. Liver lesions are benign cysts. - Last colonoscopy 2011 she reports was normal-consider repeat as an outpatient and perhaps consider EGD. - She is to have EUS as an outpatient in 6 weeks with GI (10) Anemia: Iron studies here are normal. Stool was HEME NEGATIVE on examination here. - On 05/02/2021 her Hb was 12. - Hb now 10.3 but stable. (11) Liver lesion: Numerous lesions that are benign cysts along with CBD dilatation seen on CT abdomen/pelvis. Right upper quadrant ultrasound showed CBD 1.1 cm and pancreatic duct mildly dilated 3 mm. - Appreciate GI consultation-not overly concerned about this but plan for EUS in 6 weeks (12) UTI (urinary tract infection): u/a suggestive of UTI. at risk of nosocomial pathogens. With cystitis on CT abdomen/pelvis With urine culture growing E. coli pansensitive and a second GNR pending Continue Rocephin and follow urine culture (13) Asthma: Not active at this time. - Continue albuterol prn, ICS/LABA (14) Anxiety: Secondary to medical illness and hospitalization. - Started lorazepam 0.5 mg p.o. every 8 hours as needed just while in hospital, but would not continue fpc - Increased Cymbalta to 30 mg daily (15) Elevated troponin: Troponin elevated at 0.13, repeat down to 0.10 Echocardiogram without wall motion abnormalities This is most likely secondary to PE (16) Pulmonary nodule: Multiple pulmonary nodules seen, the largest is [address] chest in 3 months Admission and Anticipated Discharge Date Admission Date: May 17, 2021 Subjective No issues this morning. She does become somewhat more tearful when speaking about her pain. I did promise we would work on that and have a good plan for her before transfer. Reports no fevers/chills, chest pain, shortness of breath, a bdominal pain, nausea, or vomiting. Physical Exam Constitutional: WD/WN, vitals as above Eyes: EOM intact bilaterally; no conjunctival abnormality ENMT: external ear and nose normal, oropharynx normal Neck: trachea midline, no thyromegaly normal visual inspection Respiratory: normal respiratory effort, lungs clear to auscultation no respiratory distress Cardiovascular: RRR, no murmur, no edema Gastrointestinal (Abdomen): Inspection/Auscultation: abdomen normal to inspection; abdomen not distended Skin: no rashes, warm and dry Neurologic: moves all extremities and awake Psychiatric: Orientation: alert, oriented to person and cooperative Affect: + tearful affect Results & Data Results & Data ([facility]) Vital Signs (Past 12 Hours) Vital Signs Temp Pulse Resp BP Pulse Ox 05/20/21 10:42 36.8 C 82 17 138/73 96 05/20/21 07:15 36.8 C 82 17 169/76 H 98 05/20/21 03:25 36.5 C 86 20 149/73 H 95 PG Care Time/CCT Total # of Minutes Spent Total Time Spent with Patient: Total time spent is greater than 50% in coordination of care (as documented) at patient's floor/unit and/or counseling patient: Coding Level of Care Code 92041 Subseq Hosp Care Lvl 2 Diagnoses Pulmonary emboli I26.99 Acute cor pulmonale presence: unspecified Chronicity: unspecified Pulmonary embolism type: unspecified DVT (deep venous thrombosis) I82.402 Affected thrombotic vein of extremity: unspecified vein of extremity Chronicity: acute DVT location: lower extremity Laterality: left Stroke I63.9 Atrial fibrillation I48.91 Hypertension I10 Hypothyroid E03.9 Intracranial hemorrhage I62.9 Pacemaker Z95.0 Weight loss R63.4 Anemia D64.9 Liver lesion K76.9 UTI (urinary tract infection) N39.0 Asthma J45.909 Anxiety F41.9 Elevated troponin R77.8 Pulmonary nodule R91.1 (1) Pulmonary emboli Acute cor pulmonale presence: unspecified Chronicity: unspecified Pulmonary embolism type: unspecified Qualified Code(s): I26.99 - Other pulmonary embolism without acute cor pulmonale (2) DVT (deep venous thrombosis) Affected thrombotic vein of extremity: unspecified vein of extremity Chronicity: acute DVT location: lower extremity Laterality: left Qualified Code(s): I82.402 - Acute embolism and thrombosis of unspecified deep veins of left lower extremity
[2021-05-20] MEDS: WARFARIN SOD 5 MG TAB PO SCH (16:35)
[2021-05-20 17:28] LABS: Partial Thromboplastin Ratio 2.8
[2021-05-20 17:32] LABS: Partial Thromboplastin Time 73.7 Seconds (21.0-31.0)
[2021-05-20] MEDS: MELATONIN 3 MG TAB PO SCH (19:34)
[2021-05-20] MEDS: LORazepam 0.5 MG TAB PO PRN (19:34)
[2021-05-20] MEDS: ATORVASTATIN 40 MG TAB PO SCH (19:35)
[2021-05-21 01:10] LABS: Partial Thromboplastin Ratio 2.7
[2021-05-21 01:19] LABS: Partial Thromboplastin Time 72.1 Seconds (21.0-31.0)
[2021-05-21] MEDS: LEVOTHYROXINE SODIUM 150 MCG TABLET PO SCH (05:56)
[2021-05-21] MEDS: GABAPENTIN 300 MG CAP PO SCH ×2 (05:56→12:57)
[2021-05-21] MEDS: PANTOprazole 40 MG TAB PO SCH (05:57)
[2021-05-21] MEDS: cefTRIAXone SODIUM 1,000 MG in DEXTROSE 5% 50 ML IV SCH (07:52)
[2021-05-21 07:53] LABS: Hematocrit (blood only) 31.5 % (37-47); Hemoglobin 10.4 g/dL (12.0-16.0); Mean Corpuscular Hemoglobin 32.7 pg (25-34); Mean Corpuscular Volume 99.1 fL (80-100); Mean Platelet Volume 8.7 fL (7.4-10.4); Platelet Count 591 K/uL (130-400); RDW Standard Deviation 70.9 fL (36.4-46.3); Red Blood Count 3.18 M/uL (4.2-5.4); White Blood Count 6.36 K/uL (4.8-10.8)
[2021-05-21] MEDS: lisinopril 40 MG TAB PO SCH (07:53)
[2021-05-21] MEDS: BACLOFEN 10 MG TAB PO SCH (07:53)
[2021-05-21] MEDS: FOLIC ACID 1 MG TAB PO SCH (07:53)
[2021-05-21] MEDS: CHOLECALCIFEROL 1,000 UNITS 25 MCG TAB PO SCH (07:54)
[2021-05-21] MEDS: DULoxetine HCL 30 MG CAP PO SCH (07:54)
[2021-05-21] MEDS: METOPROLOL TARTRATE 50 MG TAB PO SCH (07:54)
[2021-05-21] MEDS: DOCUSATE SODIUM/SENNA 50/8.6MG TAB PO SCH (07:54)
[2021-05-21] MEDS: CALCIUM CARBONATE 500 MG CHEWABLE TAB PO SCH ×2 (07:54→12:56)
[2021-05-21] MEDS: FLUTICASONE/VILANTEROL 200/25MCG 14 PUFFS/INHALER INH SCH (07:55)
[2021-05-21 08:00] LABS: INR 2.2 (0.9-1.1); Prothrombin Time 21.4 Seconds (9.0-12.0)
[2021-05-21 08:10] LABS: Partial Thromboplastin Ratio 2.4
[2021-05-21 08:29] LABS: BUN Creatinine Ratio 18.2 (10-20); Calcium 9.8 mg/dl (8.5-10.1); Creatinine Clr Calc Pharmacy 60.3 ml/min; Est GFR (African American) 95.5 ml/min; Est GFR (Non-African American) 82.4 ml/min; Magnesium 1.9 mg/dl (1.8-2.4); Potassium 4.3 mmol/L (3.5-5.1)
[2021-05-21] MEDS: oxyCODONE HCL IR 5 MG TAB (IMMEDIATE RELEASE) PO PRN (09:29)
[2021-05-21] MEDS: HEPARIN SODIUM/DEXTROSE 25,000 UNITS/500 ML BAG IV SCH (11:33)
[2021-05-21] MEDS ORDERED: WARFARIN SOD 3 MG TAB PO STA (12:18)
[2021-05-21] MEDS ORDERED: ENOXAPARIN 80 MG/0.8 ML SYR SQ ONE (12:30)
--- NOTE | 2021-05-21 16:04 | Discharge Summary ---
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 The DVT is in the LLE. Doppler report confirms a left mid-femoral vein DVT. RLE is negative for DVT. She had been having pain in the left leg for a few days. She also had chest discomfort yesterday but none today. She denies any dyspnea. Patient reports that anticoagulation was NOT initiated at [facility] for her acute embolic stroke due to concerns about her spontaneous ICH while living in [place], [place]. This event occurred in ~2016. Apparently presented to a eye doctor there with visual disturbance. MRI ultimately done showing a ?left cerebral AVM? Oddly she did not require hospitalization for this. [facility] records were reviewed -- after arriving at [facility] she ultimately did NOT have intervention to the right MCA embolus. She apparently had had severe LLE spasms and was seen by pain management for this problem. Her left leg is considerably bruised and records from [facility] indicate the extensive bruising occurred because of self-rubbing the leg while at [facility]? Principal Diagnosis DVT/PE Atrial fibrillation Discharge Exam Constitutional WD/WN, vitals as above Eyes EOM intact bilaterally; no conjunctival abnormality ENMT external ear and nose normal, oropharynx normal Neck trachea midline, no thyromegaly normal visual inspection Respiratory normal respiratory effort, lungs clear to auscultation no respiratory distress Cardiovascular RRR, no murmur, no edema Gastrointestinal (Abdomen) Inspection/Auscultation: abdomen normal to inspection; abdomen not distended Skin no rashes, warm and dry Neurologic moves all extremities and awake Psychiatric Orientation: alert, oriented to person and cooperative Affect: + tearful affect Discharge Data Allergies Allergy/AdvReac Type Severity Reaction Status Date / Time iodine Allergy chills, Verified 05/17/21 09:35 burning sensation in neck vancomycin Allergy rash, Verified 05/17/21 09:35 nausea Consultations 05/17/21 10:59 ED Decision to Admit Stat 05/18/21 10:13 Consult Gastroenterology Routine 05/18/21 10:27 Consult Health Information Management Stat 05/18/21 20:06 Consult Health Information Management Routine Ordered Studies 05/17/21 09:19 CT abd pelvis IV con only Stat CT angio chest PE protocol Stat 05/17/21 13:22 US gallbladder Urgent Hospital Course (1) Pulmonary emboli: Right sided PEs with LLE DVT. Risk factors - prolonged immobility of the left leg. Do not suspect occult cancer, but could be explored further as an outpatient. Liver lesions are simply benign cysts. - Started Coumadin 5 mg daily on 05/18 and continued bridging with heparin - INR today is 2.2 today. -> Discussed with pharmacy given quick rise in INR. Given Lovenox 80 mg SQ x 1 dose on 05/21 to finish anticoagulation bridge. Start warfarin 2.5 mg PO daily on discharge to prevent too high a jump of her INR. Will need INR check on or Fr likely. (2) DVT (deep venous thrombosis): LLE -- see above. (3) Stroke: Large right-sided MCA territory stroke earlier this month. Resulting in severe weakness of the LLE and, to a degrees, mild LUE weakness. - Presumed embolic from her chronic, permanent a.fib./flutter - Warfarin as above - Continue Lipitor 40mg daily. - She should also have follow-up with stroke neurologist at [facility] after discharge She has had significant left lower extremity neuropathic pain since the stroke. - Continue Cymbalta but increased to 30 mg, continue gabapentin and increase dose to 300mg PO TID - Continue baclofen - Had extensive discussion with daughters over her pain regimen. 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 They were dismayed at the return to opioid medications. This was relatively new to me as I had not seen this passed on through the records. In an effort to wean her from opioids, I think she can move back to tramadol (which her daughter reports was effective for her), then possibly stop all together. (4) Atrial fibrillation: Permanent. Rates are controlled. - Cont metoprolol 50mg BID. - Anticoagulation with warfarin as above (5) Hypertension: BPs were low-normal upon presentation and home blood pressure medications were held. - Blood pressures today are now normal - Continue home med of lisinopril - Can return to doxazosin - Hold torsemide unless needs change. (6) Hypothyroid: TSH level here elevated at 7.0. - Continue home Synthroid (7) Intracranial hemorrhage: History of such. Had this in ~2006 in [place], [place]. 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 Her bleeding event was so mild that she did not require hospitalization. - On all studies of the brain recently completed there are no AVMs or aneurysms seen. 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. - Follows with [facility] cardiology team (9) Weight loss: Even prior to the patient's stroke she had been having weight loss, early satiety, and changing bowel habits. The weight loss is concerning for occult malignancy. Liver lesions are benign cysts. - Last colonoscopy 2011 she reports was normal-consider repeat as an outpatient and perhaps consider EGD. - She is to have EUS as an outpatient in 6 weeks with GI (10) Anemia: Iron studies here are normal. Stool was HEME NEGATIVE on examination here. - On 05/02/2021 her Hb was 12. - Hb now 10.4 but stable. (11) Liver lesion: Numerous lesions that are benign cysts along with CBD dilatation seen on CT abdomen/pelvis. Right upper quadrant ultrasound showed CBD 1.1 cm and pancr eatic duct mildly dilated 3 mm. - Appreciate GI consultation-not overly concerned about this but plan for EUS in 6 weeks (12) UTI (urinary tract infection): U/a suggestive of UTI. With cystitis on CT abdomen/pelvis. - Culture with E. coli and Klebsiella - Finished Rocephin in the hospital. (13) Asthma: Not active at this time. - Continue albuterol prn, ICS/LABA (14) Anxiety: Secondary to medical illness and hospitalization. - Increased Cymbalta to 30 mg daily (15) Elevated troponin: Troponin elevated at 0.13, repeat down to 0.10 Echocardiogram without wall motion abnormalities This is most likely secondary to PE (16) Pulmonary nodule: Multiple pulmonary nodules seen, the largest is [address] chest in 3 months Total Time Total Time Spent Total Time Spent (In Minutes): 35 Discharge Plan Discharge Items Patient Disposition: Transfer Inpatient Rehab Fac Reason For Visit: DVT/PEs, RECENT R MCA TERRITORY STROKE Discharge Diagnosis: DVT/PE, embolic stroke Activity: Resume your previous activity Non-emergency contact: Primary Care Provider and Neurologist Call non-emergency contact if: your symptoms worsen Follow-up/Referrals: Surekha Saucedo MD [Primary Care Provider] - Diet: Heart Healthy Addtl Attending Provider Instructions: Ms. Chan was admitted to the hospital with DVT/PE. She was started on warfarin for a blood thinner. Her INR was 2.2 on discharge. She was given a Lovenox injection prior to discharge in order to bridge her. She was also given her warfarin today (05/21) prior to discharge. She should probably have an INR sometime in the next day or two. She will be on warfarin 2.5 mg PO daily. Ms. Chan was a tough case for pain. She was consistently in pain and even tearful. Her daughter reported to me that she was actually on long-term Ambien and cough syrup prior to her daughters taking over and getting her off these. For us, she wound up on oxycodone. Her daughter felt that tramadol at [facility] was as beneficial without the sedating side effects. To help with neuropathic pain, her gabapentin and duloxetine were increased. Pending Studies at Discharge: No Stand-Alone Forms: My [facility] Skilled Items Patient informed of condition?: No DNR: Yes Discharge Level of Care: Acute rehab Communicable Disease: No Discharge Prognosis: Stable Lines: None Urinary Catheter: No Medications and DC Order Prescriptions: New oxycodone 5 mg Tablet 5 mg PO TID PRN (Reason: pain) Qty: 0 RF: 0 warfarin 2.5 mg tablet 2.5 mg PO DAILY Qty: 1 RF: 0 Continued albuterol sulfate 90 mcg/actuation HFA aerosol inhaler 2 puffs inhalation Q4H PRN (Reason: SHORT OF BREATH) RF: 0 cholecalciferol (vitamin D3) 2,000 unit capsule 2,000 units PO QAM RF: 0 levothyroxine 137 mcg tablet 137 mcg PO DAILYBB RF: 0 atorvastatin [Lipitor] 40 mg tablet 40 mg PO HS RF: 0 polyethylene glycol 3350 [Miralax] 17 gram Powder In Packet 17 g PO QDL PRN (Reason: Constipation) RF: 0 sennosides-docusate sodium [Senokot-S] 8.6-50 mg Tablet 1 tab-cap PO QDL PRN (Reason: Constipation) RF: 0 melatonin 3 mg Tablet 3 mg PO HS RF: 0 pantoprazole 40 mg Tablet,Delayed Release (Dr/Ec) 40 mg PO DAILYBB RF: 0 metoprolol tartrate 50 mg Tablet 50 mg PO Q12H RF: 0 docusate sodium 100 mg Capsule 100 mg PO BID RF: 0 folic acid 1 mg Tablet 2 mg PO QAM RF: 0 calcium carbonate 500 mg calcium (1,250 mg) Tablet,Chewable 500 mg PO QID RF: 0 doxazosin [Cardura] 2 mg tablet 2 mg PO HS RF: 0 baclofen 5 mg Tablet 5 mg PO BID RF: 0 nitroglycerin [Nitrostat] 0.4 mg Tablet, Sublingual 0.4 mg sublingual DIRECTED PRN (Reason: Chest Pain) RF: 0 lisinopril 40 mg Tablet 40 mg PO QAM RF: 0 Breo Ellipta 200-25 mcg/dose Blister With Device 1 inh INHALATION QAM RF: 0 Changed gabapentin 100 mg Capsule 300 mg PO Q8H Qty: 0 RF: 0 duloxetine [Cymbalta] 20 mg Capsule,Delayed Release(Dr/Ec) 30 mg PO QAM Qty: 0 RF: 0 Discontinued torsemide 10 mg tablet 10 mg PO QAM RF: 0 diazepam 2 mg Tablet 1 mg PO HS RF: 0 potassium chloride 10 mEq Capsule, Extended Release 30 meq PO QAM RF: 0 aspirin [Adult Low Dose Aspirin] 81 mg Tablet,Delayed Release (Dr/Ec) 81 mg PO QAM RF: 0 Discharge Orders: Discharge Order (Routine); Ordered 05/21/21 Ordered By: Orsetes Munoz Admission Data Admit Date/Time: 05/17/21 13:22 Attending Provider: Orestes Munoz Admit Provider: Ramsey Cabrera Primary Care Provider: Surekha Saucedo Other Providers: [facility] ; Josafat Mcconnell ; Orestes Munoz Other Interventions: Discharge Summary Assessment (RN) Last Done: 05/21/21 13:00 Coding Level of Care Code D/C Day Management >30 mins Diagnoses Pulmonary emboli I26.99 Acute cor pulmonale presence: unspecified Chronicity: unspecified Pulmonary embolism type: unspecified DVT (deep venous thrombosis) I82.402 Affected thrombotic vein of extremity: unspecified vein of extremity Chronicity: acute DVT location: lower extremity Laterality: left Stroke I63.9 Atrial fibrillation I48.91 Hypertension I10 Hypothyroid E03.9 Intracranial hemorrhage I62.9 Pacemaker Z95.0 Weight loss R63.4 Anemia D64.9 Liver lesion K76.9 UTI (urinary tract infection) N39.0 Asthma J45.909 Anxiety F41.9 Elevated troponin R77.8 Pulmonary nodule R91.1
== END 2021-05-21 16:18 | DRG 299 ==
LOC: ED 08:55 → 2S 13:22 → SUATTDRO 13:22 → 2S 14:05

== ENCOUNTER 2021-06-14 22:37 | Observation (INO) ==
[2021-06-14] MEDS ORDERED: NITROGLYCERIN SL 0.4 MG/TAB TAB SL STA (23:45)
[2021-06-14] MEDS ORDERED: fentaNYL citrate 100 MCG/2 ML VIAL IV STA (23:48)
--- NOTE | 2021-06-14 23:48 | Emergency Department Note ---
Impression & Plan Substernal chest pain, Bilateral pleural effusion, Elevated INR ED Provider Note Name: JOY VAZQUEZ Age: 80 Sex: F Arrives Via: Ambulance Informant: Patient, EMS ED Provider: Ge Peterson MD Chief Complaint: Chest pain Impression: Substernal Chest Pain Bilateral Pleural Effusion Elevated INR Medical Decision Makin yr old female with chest pain at rehab this evening. She arrives quite anxious and upset noted anterior chest pain and some shortness of breath. Quite focused on her Afib and that she may have another stroke. 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 No known CAD history as she states she had cath last year which was normal. EKG with afib, no acute ischemia. Given SLNTG along with fentanyl as complaining of leg spasms. 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 CXR with concern RLL infiltrate/congestion. Labs with elevated Trop, though it is usually a bit elevated. INR is a bit high though she is having no evidence of bleeding and hgb is stable. She was given some ativan as quite anxious which seemed to work bed for her. No further chest pain and notes pains improved. With CXR findings felt CT indicated, but needed pre-medication with solumedrol and benadryl (which made her quite sleepy). CT with acute new bilateral effusions of uncertain etiology. Per chart review no history of CHF and EF last month was 60-65%. I do not think this fluid is infectious. With new effusions, as well as earlier chest pain, hospitalist consulted for further evaluation. Prior Medical Record and Triage/Nursing Notes reviewed by Me Additional history obtained from chart Differentials:Cardiac ischemia, aortic dissection, pulmonary embolism, pneumothorax, pneumonia, pericarditis, myocarditis, esophageal rupture, GERD, cholecystitis, pancreatitis, musculoskeletal, as well as other pathologies. Vital Signs: reviewed and remarkable for no significant abnormalities Interventions: saline lock, fentanyl 50mcg iv, ativan 0.5mg iv, slntg Labs:Reviewed and remarkable for elevated trop Imaging:X ray results are stated below per my interpretation: Chest: 1 view: Congestive pattern with concern RLL infiltrate EKG:Per My Interpretation: Indication Chest Pain: Afib 90 bpm, qtc 430 with ventricular paced beat. No Ischemia. Compared to EKG 05/17/21 similar with no v- paced at that time Cardiac/Tele Monitoring: Cardiac Monitoring: An Order was placed for continuous cardiac monitoring. The monitor shows a rate of 90 with a afib rhythm. Consults:Dr Deidre CALIXTO Hospitalist Plan: Disposition:Hospitalization. Condition: Fair History of Present Illness:80 yr old female arrives for evaluation of chest pain. Patient with onset substernal chest pain 2 hours prior to arrival. Associated with weakness and her typical back/left spasms. She notes wheezing earlier but is improved. Notes she is very anxious because of this. Denies syncope, dyspnea, fevers, chills, headache, neck pain, nausea, vomiting, rashes, nor other symptoms. Chronic left leg swelling s/p dvt and known PE and Afib on Coumadin. Recent stoke resulting in left leg weakness as well. Nothing makes cp better nor worse. States she had ASA 324 prior to arrival without improvement. She notes she is having spasm in her left leg and in to her back which is chronic for her but movement made worse. No trauma nor falls. She states that cardiac cath last year was normal and denies CAD history. ROS: See above HPI for pertinent positives & negatives. A total of 10 systems reviewed and were otherwise negative. Past Medical History:See Below Past Surgical History:See Below Family History:See Below Social History:See Below Home Medications:See Below Allergies:See Below Vitals:Blood Pressure: 159/78, Pulse 91, RR 14, T 37.2C, O2 93% on RA Physical Exam: GENERAL: Patient is very anxious appearing and in mild distress. EYES: No scleral icterus, unremarkable pupils. ENT: Mucous membranes moist, no nasal congestion. NECK: No masses appreciated, nomeningismus, trachea is midline. RESPIRATORY: Mild dyspnea with diffuse crackles no wheezing appreciated CARDIOVASCULAR: Irregular.No murmurs, rubs, gallops appreciated. GASTROINTESTINAL: Abdomen soft, non-tender, no peritonitis.Bowel sounds positive.No masses appreciated. BACK: No midline tenderness, no CVA tenderness EXTREMITIES: Normal motion all extremities, no cyanosis, no edema. NEUROLOGIC: Alert and oriented, no acute motor or sensory deficits, no focal weakness, cranial nerves grossly intact. SKIN: No rash, no jaundice, no diaphoresis. PSYCH: Anxious GCS: 15 ED Course: Times/Reassessments: feeling better post treatment. Stable, a bit sleepy post ativan and then benadryl. 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 [facility]IL[facility] Jeff. date - 2016? 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 Surgical History (Updated 05/17/21 @ 12:29 by Ramsey Cabrera) H/O: hysterectomy History of colonoscopy 2011 - normal, no polyps S/P BSO (bilateral salpingo-oophorectomy) S/P lumbar spinal fusion Family History (Updated 05/17/21 @ 12:29 by Ramsey Cabrera) Mother , from "respiratory failure" Congestive heart failure Myocardial infarction Father , about age 80 from pneumonia Hypertension COPD (chronic obstructive pulmonary disease) Daughter Colorectal cancer Denies family history of Stroke Social History (Updated 05/17/21 @ 12:19 by Ramsey Cabrera) Smoking Status: Former smoker Tobacco Type: Cigarettes packs per day: 0.5; Years Smoked: 20; Hx Alcohol Use: No Hx Substance Use: No Preferred Language: Occitan Communication Ability: Effective Commercial Driver'S License Driver Required: No Beliefs That Will Affect Care: None marital status: Current Living Situation: Rehab Current Living Situation Comment: lives with daughter and son-in-law -- [facility] current occupational status: retired current occupation: worked for [employer] industry How many Children do You have: 3 How many Children do You have Comment: 2 daughters, 1 son other: originally from [facility]. Feels Safe at Home: Yes Assistive Devices: None Allergies Allergies Allergy/AdvReac Type Severity Reaction Status Date / Time iodine Allergy chills, Verified 05/17/21 09:35 burning sensation in neck vancomycin Allergy rash, Verified 05/17/21 09:35 nausea Home Meds Home Medications Medication Instructions Recorded Confirmed albuterol sulfate 90 mcg/actuation 2 puffs INHALATION Q4H PRN gm 07/18/19 05/17/21 aerosol inhaler cholecalciferol (vitamin D3) 50 2,000 units PO QAM cap 07/21/19 05/17/21 mcg (2,000 unit) capsule levothyroxine 137 mcg tablet 137 mcg PO DAILYBB tab 07/21/19 05/17/21 fluticasone furoate 200 1 inh INHALATION QAM 05/02/21 05/17/21 mcg-vilanterol 25 mcg/dose inhalation powder (Breo Ellipta) lisinopril 40 mg tablet 40 mg PO QAM 05/02/21 05/17/21 nitroglycerin 0.4 mg sublingual 0.4 mg SUBLINGUAL DIRECTED PRN 05/02/21 05/17/21 tablet (Nitrostat) atorvastatin 40 mg tablet (Lipitor) 40 mg PO HS 05/17/21 05/17/21 baclofen 5 mg tablet 5 mg PO BID 05/17/21 05/17/21 calcium carbonate 500 mg calcium 500 mg PO QID 05/17/21 05/17/21 (1,250 mg) chewable tablet docusate sodium 100 mg capsule 100 mg PO BID 05/17/21 05/17/21 doxazosin 2 mg tablet (Cardura) 2 mg PO HS 05/17/21 05/17/21 folic acid 1 mg tablet 2 mg PO QAM 05/17/21 05/17/21 melatonin 3 mg tablet 3 mg PO HS 05/17/21 05/17/21 metoprolol tartrate 50 mg tablet 50 mg PO Q12H 05/17/21 05/17/21 pantoprazole 40 mg tablet,delayed 40 mg PO DAILYBB 05/17/21 05/17/21 release polyethylene glycol 3350 17 gram 17 g PO QDL PRN 05/17/21 05/17/21 oral powder packet (Miralax) sennosides 8.6 mg-docusate sodium 1 tab-cap PO QDL PRN 05/17/21 05/17/21 50 mg tablet (Senokot-S) Previous Rx's Medication Instructions Recorded duloxetine 20 mg capsule,delayed 30 mg PO QAM #0 cap 05/21/21 release (Cymbalta) gabapentin 100 mg capsule 300 mg PO Q8H #0 cap 05/21/21 oxycodone 5 mg tablet 5 mg PO TID PRN #0 tab 05/21/21 warfarin 2.5 mg tablet 2.5 mg PO DAILY #1 tab 05/21/21 Results & Data (ED) Vital Signs Vital Signs - 24 hr 06/14/21 22:51 06/14/21 23:30 06/14/21 23:58 Temperature 37.2 C Temperature Source Oral Pulse Rate 85 81 85 Pulse Rate from SpO2 Sensor Respiratory Rate 18 18 25 H Respiratory Effort / Characteristics Non-Labored Respiratory Depth Normal Blood Pressure 180/82 H 143/90 H 132/76 Blood Pressure Mean 114 107 94 Blood Pressure Position Lying Pulse Oximetry 94 92 92 Oxygen Delivery Method Room Air Sepsis Recent Fever Within 48 Hours No Sepsis New/Unexplained Change in Mental Status N/A Sepsis Action Taken by Nursing No Action Required 06/15/21 00:00 06/15/21 00:30 06/15/21 01:00 Temperature Temperature Source Pulse Rate 88 81 81 Pulse Rate from SpO2 Sensor Respiratory Rate 25 H 14 16 Respiratory Effort / Characteristics Respiratory Depth Blood Pressure 133/84 133/81 111/64 Blood Pressure Mean 100 98 79 Blood Pressure Position Pulse Oximetry 92 93 93 Oxygen Delivery Method Sepsis Recent Fever Within 48 Hours Sepsis New/Unexplained Change in Mental Status Sepsis Action Taken by Nursing 06/15/21 01:30 06/15/21 02:45 06/15/21 03:00 Temperature Temperature Source Pulse Rate 82 113 H 108 H Pulse Rate from SpO2 Sensor Respiratory Rate 20 22 23 Respiratory Effort / Characteristics Respiratory Depth Blood Pressure 134/77 163/78 H 163/91 H Blood Pressure Mean 96 106 115 Blood Pressure Position Pulse Oximetry 93 91 92 Oxygen Delivery Method Sepsis Recent Fever Within 48 Hours Sepsis New/Unexplained Change in Mental Status Sepsis Action Taken by Nursing 06/15/21 03:58 06/15/21 04:00 06/15/21 04:30 Temperature Temperature Source Pulse Rate 95 H 97 H 76 Pulse Rate from SpO2 Sensor 96 H 91 H Respiratory Rate 17 19 17 Respiratory Effort / Characteristics Respiratory Depth Blood Pressure 162/94 H 158/84 H 164/89 H Blood Pressure Mean 116 108 114 Blood Pressure Position Pulse Oximetry 92 92 93 Oxygen Delivery Method Room Air Room Air Sepsis Recent Fever Within 48 Hours Sepsis New/Unexplained Change in Mental Status Sepsis Action Taken by Nursing 06/15/21 05:00 Temperature Temperature Source Pulse Rate 91 H Pulse Rate from SpO2 Sensor Respiratory Rate 14 Respiratory Effort / Characteristics Respiratory Depth Blood Pressure 159/78 H Blood Pressure Mean 105 Blood Pressure Position Pulse Oximetry 93 Oxygen Delivery Method Sepsis Recent Fever Within 48 Hours Sepsis New/Unexplained Change in Mental Status Sepsis Action Taken by Nursing Laboratory Data Result diagrams: 06/14/21 23:00 06/14/21 23:00 Lab Results 06/14/21 06/14/21 06/14/21 Range/Units 23:00 23:00 23:00 WBC 5.86 (4.8-10.8) K/uL RBC 3.05 L (4.2-5.4) M/uL Hgb 10.0 L (12.0-16.0) g/dL Hct 29.6 L (37-47) % MCV 97.0 (80-100) fL MCH 32.8 (25-34) pg MCHC 33.8 (32-36) g/dL RDW Std Deviation 56.9 H (36.4-46.3) fL RDW Coeff of Niyah 16.0 H (11.5-14.5) % Plt Count 405 H (130-400) K/uL MPV 9.2 (7.4-10.4) fL Immature Gran % (Auto) 0.0 % Neut % (Auto) 65.7 % Lymph % (Auto) 18.3 % [place] % (Auto) 14.0 % Eos % (Auto) 1.7 % Baso % (Auto) 0.3 % Neut # (Auto) 3.85 (1.4-6.5) K/uL Lymph # (Auto) 1.07 L (1.2-3.4) K/uL [place] # (Auto) 0.82 H (0.11-0.59) K/uL Eos # (Auto) 0.10 (0-0.5) K/uL Baso # (Auto) 0.02 (0-0.2) K/uL Immature Gran # (Auto) 0.00 (0.00-0.02) K/uL PT 39.8 H (9.0-12.0) Seconds INR 4.4 H (0.9-1.1) Sodium 138 (136-145) mmol/L Potassium 3.4 L (3.5-5.1) mmol/L Chloride 106 (98-107) mmol/L Carbon Dioxide 28 (21-32) mmol/L Anion Gap 4.0 (3-11) BUN 8 (7-18) mg/dl Creatinine 0.50 L (0.6-1.2) mg/dl Est Cr Clr Drug Dosing 79.6 ml/min Est GFR ( Amer) 106.7 ml/min Est GFR (Non-Af Amer) 92.1 ml/min BUN/Creatinine Ratio 15.0 (10-20) Glucose 105 H (70-99) mg/dl Calcium 9.7 (8.5-10.1) mg/dl Total Bilirubin 0.3 (0.2-1) mg/dl Direct Bilirubin < 0.1 (0-0.2) mg/dl AST 14 L (15-37) U/L ALT 22 (12-78) U/L Alkaline Phosphatase 82 (45-117) U/L Troponin I 0.177 H* (0-0.045) ng/ml Total Protein 5.7 L (6.4-8.2) gm/dl Albumin 3.0 L (3.4-5.0) gm/dl Administered Medications Discontinued Medications Diphenhydramine HCl (Diphenhydramine 50 Mg/Ml Vial) 50 mg IV NOW STA Stop: 06/15/21 01:28 Last Admin: 06/15/21 01:31 Dose: 50 mg Documented by: [id number] Fentanyl Citrate (Fentanyl Citrate 100 Mcg/2 Ml Vial) 50 mcg IV NOW STA Stop: 06/14/21 23:49 Last Admin: 06/14/21 23:52 Dose: 50 mcg Documented by: [id number] Furosemide (Furosemide 40 Mg/4 Ml Vial) 20 mg IV NOW STA Stop: 06/15/21 04:16 Last Admin: 06/15/21 04:55 Dose: 20 mg Documented by: [id number] Lorazepam (Ativan) 0.5 mg in 1 mls @ 1 mls/min IV NOW STA Stop: 06/15/21 00:05 Last Admin: 06/15/21 00:13 Dose: 1 mls/min Documented by: [id number] Ioversol (Optiray 320 100ml) 94 ml IV ONCE ONE Stop: 06/15/21 02:02 Last Admin: 06/15/21 02:03 Dose: 94 ml Documented by: [id number] Methylprednisolone (Methylprednisolone 125 Mg/2 Ml Vial) 125 mg IV NOW STA Stop: 06/15/21 01:28 Last Admin: 06/15/21 01:32 Dose: 125 mg Documented by: [id number] Nitroglycerin (Nitroglycerin Sl 0.4 Mg/Tab Tab) 0.4 mg SL NOW STA Stop: 06/14/21 23:46 Last Admin: 06/14/21 23:53 Dose: 0.4 mg Documented by: [id number] Discharge Plan Visit Data Chief Complaint: Chest Pain Stated Complaint: CHEST, BACK, LEG PAIN ED Provider: Ge Peterson Discharge Problem: Substernal chest pain, Bilateral pleural effusion, Elevated INR Forms Stand Alone Forms: [facility] Prescriptions Prescriptions: No Action albuterol sulfate 90 mcg/actuation HFA aerosol inhaler 2 puffs inhalation Q4H PRN (Reason: SHORT OF BREATH) RF: 0 cholecalciferol (vitamin D3) 2,000 unit capsule 2,000 units PO QAM RF: 0 levothyroxine 137 mcg tablet 137 mcg PO DAILYBB RF: 0 atorvastatin [Lipitor] 40 mg tablet 40 mg PO HS RF: 0 polyethylene glycol 3350 [Miralax] 17 gram Powder In Packet 17 g PO QDL PRN (Reason: Constipation) RF: 0 sennosides-docusate sodium [Senokot-S] 8.6-50 mg Tablet 1 tab-cap PO QDL PRN (Reason: Constipation) RF: 0 melatonin 3 mg Tablet 3 mg PO HS RF: 0 pantoprazole 40 mg Tablet,Delayed Release (Dr/Ec) 40 mg PO DAILYBB RF: 0 metoprolol tartrate 50 mg Tablet 50 mg PO Q12H RF: 0 docusate sodium 100 mg Capsule 100 mg PO BID RF: 0 folic acid 1 mg Tablet 2 mg PO QAM RF: 0 calcium carbonate 500 mg calcium (1,250 mg) Tablet,Chewable 500 mg PO QID RF: 0 doxazosin [Cardura] 2 mg tablet 2 mg PO HS RF: 0 baclofen 5 mg Tablet 5 mg PO BID RF: 0 oxycodone 5 mg Tablet 5 mg PO TID PRN (Reason: pain) Qty: 0 RF: 0 warfarin 2.5 mg tablet 2.5 mg PO DAILY Qty: 1 RF: 0 gabapentin 100 mg Capsule 300 mg PO Q8H Qty: 0 RF: 0 duloxetine [Cymbalta] 20 mg Capsule,Delayed Release(Dr/Ec) 30 mg PO QAM Qty: 0 RF: 0 nitroglycerin [Nitrostat] 0.4 mg Tablet, Sublingual 0.4 mg sublingual DIRECTED PRN (Reason: Chest Pain) RF: 0 lisinopril 40 mg Tablet 40 mg PO QAM RF: 0 Breo Ellipta 200-25 mcg/dose Blister With Device 1 inh INHALATION QAM RF: 0 Referrals Referrals: Surekha Saucedo MD [Primary Care Provider] -
[2021-06-14 23:57] LABS: Basophils # (auto) 0.02 K/uL (0-0.2); Basophils % (auto) 0.3 %; Eosinophils % (auto) 1.7 %; Hematocrit (blood only) 29.6 % (37-47); Lymphocytes # (auto) 1.07 K/uL (1.2-3.4); Lymphocytes % (auto) 18.3 %; Mean Corpuscular Hemoglobin 32.8 pg (25-34); Mean Corpuscular Hgb Conc 33.8 g/dL (32-36); Mean Platelet Volume 9.2 fL (7.4-10.4); Monocytes # (auto) 0.82 K/uL (0.11-0.59); Neutrophils # (auto) 3.85 K/uL (1.4-6.5); Neutrophils % (auto) 65.7 %; Platelet Count 405 K/uL (130-400); RDW Standard Deviation 56.9 fL (36.4-46.3); Red Blood Count 3.05 M/uL (4.2-5.4); White Blood Count 5.86 K/uL (4.8-10.8)
[2021-06-15] MEDS ORDERED: LORazepam 0.5 MG/1 ML VIAL IV STA (00:04)
[2021-06-15 00:06] LABS: Blood Urea Nitrogen 8 mg/dl (7-18); Calcium 9.7 mg/dl (8.5-10.1); Carbon Dioxide 28 mmol/L (21-32); Chloride 106 mmol/L (98-107); Creatinine Clr Calc Pharmacy 79.6 ml/min; Est GFR (African American) 106.7 ml/min; Est GFR (Non-African American) 92.1 ml/min; Glucose 105 mg/dl (70-99); Potassium 3.4 mmol/L (3.5-5.1); Sodium 138 mmol/L (136-145)
[2021-06-15 00:19] LABS: INR 4.4 (0.9-1.1); Prothrombin Time 39.8 Seconds (9.0-12.0)
[2021-06-15 00:31] LABS: Troponin I 0.177 ng/ml (0-0.045)
[2021-06-15] MEDS ORDERED: methylPREDNISolone 125 MG/2 ML VIAL IV STA (01:27)
[2021-06-15] MEDS ORDERED: diphenhydrAMINE 50 MG/ML VIAL IV STA (01:27)
[2021-06-15] MEDS ORDERED: OPTIRAY 320 100ml IV ONE (02:01)
[2021-06-15] MEDS ORDERED: FUROSEMIDE 40 MG/4 ML VIAL IV STA (04:15)
--- NOTE | 2021-06-15 04:15 | History & Physical Report ---
Date of Service June 15, 2021 Assessment & Plan (1) Bilateral pleural effusion: Plan: New bilateral pleural effusions, partially layering- Most recent echocardiogram on 05/18/21 showed ejection fraction of 60-65% Give Lasix 20 mg IV now and then 20 mg IV twice daily (2) Elevated troponin: Plan: Troponin on admission 0.177, mildly higher than her baseline. The patient will be admitted to telemetry for serial cardiac enzymes, serial EKG's, cardiac rhythm monitoring. Will not repeat echocardiogram (3) Anxiety: Plan: She was given lorazepam IV in the ED at the recommendation of her daughter, and is quite sedated at this time. (4) Asthma: Plan: Holding inhalers until she is more alert (5) Hypothyroid: Plan: Holding levothyroxine 137 mcg daily until she is more alert (6) Hypertension: Plan: See above Hold lisinopril (7) Atrial fibrillation: Plan: INR is 4.4 upon admission. Decision was made to anticoagulate her, excepting the risk of her previous intracranial hemorrhage. Reasons for anticoagulation included fibrillation, DVT and PE history. If INR is higher in a.m., will reverse due to intracranial hemorrhage history (8) Intracranial hemorrhage: Plan: Monitoring the coagulation closely (9) DVT (deep venous thrombosis): Plan: See above (10) Pulmonary emboli: Plan: See above History of Present Illness Chief Complaint: The patient presents to the emergency department with complaint of chest pain, generalized weakness and shortness of breath that began about 2 hours prior to arrival Primary Care Provider: Surekha Saucedo MD The patient is a 80-year-old female with a past medical history including acquired dilated common bile duct, asthma, UTI, liver lesion, weight loss, pacemaker, intracranial hemorrhage, hypothyroidism, hypertension, atrial fibrillation, DVT and pulmonary emboli. Her most recent admission was from 05/12-05/21. Troponin in the emergency department was 0.177, which was slightly higher than her baseline. Her EKG was unchanged. Work-up in the emergency department also included a CT scan of the chest, which showed new bilateral layering pleural effusions. Allergies Allergy/AdvReac Type Severity Reaction Status Date / Time iodine Allergy chills, Verified 05/17/21 09:35 burning sensation in neck vancomycin Allergy rash, Verified 05/17/21 09:35 nausea Home Medications Medication Instructions Recorded Confirmed Type albuterol sulfate 90 mcg/actuation 2 puffs INHALATION Q4H PRN gm 07/18/19 05/17/21 History aerosol inhaler cholecalciferol (vitamin D3) 50 2,000 units PO QAM cap 07/21/19 05/17/21 History mcg (2,000 unit) capsule levothyroxine 137 mcg tablet 137 mcg PO DAILYBB tab 07/21/19 05/17/21 History fluticasone furoate 200 1 inh INHALATION QAM 05/02/21 05/17/21 History mcg-vilanterol 25 mcg/dose inhalation powder (Breo Ellipta) lisinopril 40 mg tablet 40 mg PO QAM 05/02/21 05/17/21 History nitroglycerin 0.4 mg sublingual 0.4 mg SUBLINGUAL DIRECTED PRN 05/02/21 05/17/21 History tablet (Nitrostat) atorvastatin 40 mg tablet (Lipitor) 40 mg PO HS 05/17/21 05/17/21 History baclofen 5 mg tablet 5 mg PO BID 05/17/21 05/17/21 History calcium carbonate 500 mg calcium 500 mg PO QID 05/17/21 05/17/21 History (1,250 mg) chewable tablet docusate sodium 100 mg capsule 100 mg PO BID 05/17/21 05/17/21 History doxazosin 2 mg tablet (Cardura) 2 mg PO HS 05/17/21 05/17/21 History folic acid 1 mg tablet 2 mg PO QAM 05/17/21 05/17/21 History melatonin 3 mg tablet 3 mg PO HS 05/17/21 05/17/21 History metoprolol tartrate 50 mg tablet 50 mg PO Q12H 05/17/21 05/17/21 History pantoprazole 40 mg tablet,delayed 40 mg PO DAILYBB 05/17/21 05/17/21 History release polyethylene glycol 3350 17 gram 17 g PO QDL PRN 05/17/21 05/17/21 History oral powder packet (Miralax) sennosides 8.6 mg-docusate sodium 1 tab-cap PO QDL PRN 05/17/21 05/17/21 History 50 mg tablet (Senokot-S) duloxetine 20 mg capsule,delayed 30 mg PO QAM #0 cap 05/21/21 05/17/21 Rx release (Cymbalta) gabapentin 100 mg capsule 300 mg PO Q8H #0 cap 05/21/21 05/17/21 Rx oxycodone 5 mg tablet 5 mg PO TID PRN #0 tab 05/21/21 Rx warfarin 2.5 mg tablet 2.5 mg PO DAILY #1 tab 05/21/21 Rx Past Med/Surg History Medical History (Updated 06/15/21 @ 04:53 by Marcus Jiang MD) Allergic rhinitis Asthma Atrial fibrillation diagnosis in mid Hypertension Hypothyroid 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 date - 2016? 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 Surgical History (Updated 05/17/21 @ 12:29 by Ramsey Cabrera) H/O: hysterectomy History of colonoscopy 2011 - normal, no polyps S/P BSO (bilateral salpingo-oophorectomy) S/P lumbar spinal fusion Family History (Updated 05/17/21 @ 12:29 by Ramsey Cabrera) Mother , from "respiratory failure" Congestive heart failure Myocardial infarction Father , about age 80 from pneumonia Hypertension COPD (chronic obstructive pulmonary disease) Daughter Colorectal cancer Denies family history of Stroke Social History (Updated 05/17/21 @ 12:19 by Ramsey Cabrera) Smoking Status: Former smoker Tobacco Type: Cigarettes packs per day: 0.5; Years Smoked: 20; Hx Alcohol Use: No Hx Substance Use: No Preferred Language: Wolof Communication Ability: Effective Burr Bench Operator Required: No Beliefs That Will Affect Care: None marital status: Current Living Situation: Rehab Current Living Situation Comment: lives with daughter and son-in-law -- [place] current occupational status: retired current occupation: worked for [employer] industry How many Children do You have: 3 How many Children do You have Comment: 2 daughters, 1 son other: originally from [facility]. Feels Safe at Home: Yes Assistive Devices: None Review of Systems Review of Systems: Review of systems was not obtainable due to sedation after ministration of IV Ativan for anxiety Physical Exam Physical Exam: The patient is sedated, normocephalic and atraumatic, lying in bed and in no acute distress. HEENT--PERRL, EOMI, mucous membranes and oropharynx normal Neck--supple. No JVD. No bruits. Thyroid normal, trachea midline, no adenopathy. Heart--normal S1 and S2. No murmurs, rubs or gallops. Lungs--crackles at the bases bilaterally. No respiratory distress, no accessory muscle use. Abdomen--normal bowel sounds and soft. Nontender. Nondistended, no hernias or masses, no organomegaly. Extremities--no cyanosis or clubbing. No edema. Dermatologic--skin is dry Neurologic--cranial nerves II through XII grossly intact. Rheumatologic--limited exam due to sedation Psychiatric--sedated. Results & Data Results & Data ([facility]) Vital Signs (Past 12 Hours) Vital Signs Temp Pulse Resp BP Pulse Ox 06/15/21 03:58 95 H 17 162/94 H 92 06/15/21 03:00 108 H 23 163/91 H 92 06/15/21 02:45 113 H 22 163/78 H 91 06/15/21 01:30 82 20 134/77 93 06/15/21 01:00 81 16 111/64 93 06/15/21 00:30 81 14 133/81 93 06/15/21 00:00 88 25 H 133/84 92 06/14/21 23:58 85 25 H 132/76 92 06/14/21 23:30 81 18 143/90 H 92 06/14/21 22:51 99.0 F 85 18 180/82 H 94 Laboratory Results Laboratory Results WBC 5.86 K/uL (4.8-10.8) 06/14/21 23:00 RBC 3.05 M/uL (4.2-5.4) L 06/14/21 23:00 Hgb 10.0 g/dL (12.0-16.0) L 06/14/21 23:00 Hct 29.6 % (37-47) L 06/14/21 23:00 MCV 97.0 fL (80-100) 06/14/21 23:00 MCH 32.8 pg (25-34) 06/14/21 23:00 MCHC 33.8 g/dL (32-36) 06/14/21 23:00 RDW Std Deviation 56.9 fL (36.4-46.3) H 06/14/21 23:00 RDW Coeff of Niyah 16.0 % (11.5-14.5) H 06/14/21 23:00 Plt Count 405 K/uL (130-400) H 06/14/21 23:00 MPV 9.2 fL (7.4-10.4) 06/14/21 23:00 Immature Gran % (Auto) 0.0 % 06/14/21 23:00 Neut % (Auto) 65.7 % 06/14/21 23:00 Lymph % (Auto) 18.3 % 06/14/21 23:00 [place] % (Auto) 14.0 % 06/14/21 23:00 Eos % (Auto) 1.7 % 06/14/21 23:00 Baso % (Auto) 0.3 % 06/14/21 23:00 Neut # (Auto) 3.85 K/uL (1.4-6.5) 06/14/21 23:00 Lymph # (Auto) 1.07 K/uL (1.2-3.4) L 06/14/21 23:00 [place] # (Auto) 0.82 K/uL (0.11-0.59) H 06/14/21 23:00 Eos # (Auto) 0.10 K/uL (0-0.5) 06/14/21 23:00 Baso # (Auto) 0.02 K/uL (0-0.2) 06/14/21 23:00 Immature Gran # (Auto) 0.00 K/uL (0.00-0.02) 06/14/21 23:00 PT 39.8 Seconds (9.0-12.0) H 06/14/21 23:00 INR 4.4 (0.9-1.1) H 06/14/21 23:00 Sodium 138 mmol/L (136-145) 06/14/21 23:00 Potassium 3.4 mmol/L (3.5-5.1) L 06/14/21 23:00 Chloride 106 mmol/L (98-107) 06/14/21 23:00 Carbon Dioxide 28 mmol/L (21-32) 06/14/21 23:00 Anion Gap 4.0 (3-11) 06/14/21 23:00 BUN 8 mg/dl (7-18) 06/14/21 23:00 Creatinine 0.50 mg/dl (0.6-1.2) L 06/14/21 23:00 Est Cr Clr Drug Dosing 79.6 ml/min 06/14/21 23:00 Est GFR ( Amer) 106.7 ml/min 06/14/21 23:00 Est GFR (Non-Af Amer) 92.1 ml/min 06/14/21 23:00 BUN/Creatinine Ratio 15.0 (10-20) 06/14/21 23:00 Glucose 105 mg/dl (70-99) H 06/14/21 23:00 Calcium 9.7 mg/dl (8.5-10.1) 06/14/21 23:00 Total Bilirubin 0.3 mg/dl (0.2-1) 06/14/21 23:00 Direct Bilirubin < 0.1 mg/dl (0-0.2) 06/14/21 23:00 AST 14 U/L (15-37) L 06/14/21 23:00 ALT 22 U/L (12-78) 06/14/21 23:00 Alkaline Phosphatase 82 U/L (45-117) 06/14/21 23:00 Troponin I 0.177 ng/ml (0-0.045) H* 06/14/21 23:00 Total Protein 5.7 gm/dl (6.4-8.2) L 06/14/21 23:00 Albumin 3.0 gm/dl (3.4-5.0) L 06/14/21 23:00 Code Status & VTE Plan Code Status Full code VTE Prophylaxis Plan VTE Prophylaxis will be ordered: Yes PG Care Time/CCT Total # of Minutes Spent Total Time Spent with Patient: Total time spent is greater than 50% in coordination of care (as documented) at patient's floor/unit and/or counseling patient: Coding Level of Care Code 92537 Initial Inpt Care Lvl 3 Diagnoses Bilateral pleural effusion J90 Elevated troponin R77.8 Anxiety F41.9 Asthma J45.909 Hypothyroid E03.9 Hypertension I10 Atrial fibrillation I48.91 Intracranial hemorrhage I62.9 DVT (deep venous thrombosis) I82.402 Affected thrombotic vein of extremity: unspecified vein of extremity Chronicity: acute DVT location: lower extremity Laterality: left Pulmonary emboli I26.99 Acute cor pulmonale presence: unspecified Chronicity: unspecified Pulmonary embolism type: unspecified (1) DVT (deep venous thrombosis) Affected thrombotic vein of extremity: unspecified vein of extremity Chronicity: acute DVT location: lower extremity Laterality: left Qualified Code(s): I82.402 - Acute embolism and thrombosis of unspecified deep veins of left lower extremity (2) Pulmonary emboli Acute cor pulmonale presence: unspecified Chronicity: unspecified Pulmonary embolism type: unspecified Qualified Code(s): I26.99 - Other pulmonary embolism without acute cor pulmonale
[2021-06-15 04:44] LABS: Alanine Aminotransferase 22 U/L (12-78); Alkaline Phosphatase 82 U/L (45-117); Aspartate Aminotransferase 14 U/L (15-37); Bilirubin Direct < 0.1 mg/dl (0-0.2); Bilirubin,Total 0.3 mg/dl (0.2-1); Total Protein 5.7 gm/dl (6.4-8.2)
[2021-06-15] MEDS ORDERED: ONDANSETRON INJ 2 MG/ML 2 ML VIAL IV PRN (07:31)
--- NOTE | 2021-06-15 08:03 | CT Scan Report ---
CHEST CT WITH CONTRAST CT DOSE: 281.32 mGy.cm HISTORY: Abnormal chest x-ray. right lower lobe abnormality TECHNIQUE: Multiaxial CT images of the chest were performed following the intravenous administration of contrast. A dose lowering technique was utilized adhering to the principles of ALARA. COMPARISON: Chest CTA 05/17/2021. FINDINGS: There is a left-sided pacemaker. No acute fractures within the chest. There is mild mediast inal and bilateral hilar lymphadenopathy. This is new compared the prior study. Normal esophagus. Par tially visualized hepatic hypodense lesions likely representing cysts. There are small bilateral pleu ral effusions. Trace pericardial effusion. The patient's known right lower lobe pulmonary emboli are better appreciated on the 05/17/2020 chest CTA. There may be a few linear filling defects remaining wi thin the right lower lobe pulmonary arteries. Consolidation within the lower lobes posteriorly favor compressive atelectasis from the pleural effusions. No pneumothorax. There is respiratory motion amelia fact. The central airways are patent. Mild interlobular septal thickening consistent with pulmonary e bob. A few scattered subcentimeter pulmonary nodules are again noted. Dominant nodule within the lef t lower lobe on image 138 measures 7 mm. These are suboptimally assessed due to the motion artifact. Stable 4 mm irregular nodule within the right lung apex on image 67. IMPRESSION: 1. Interval development of mild pulmonary edema and small bilateral pleural effusions. 2. Mild mediastinal and bilateral hilar lymphadenopathy is also new from the prior study. This could be reactive to the pulmonary edema. 3. Cardiomegaly. 4. The patient's known right lower lobe pulmonary emboli are better appreciated on the recent chest C TA. ACT 112: Negative or not required by law. Electronically signed by: Osiel Henson M.D. 06/15/2021 8:02 AM
--- NOTE | 2021-06-15 08:17 | XRay Report ---
XR chest 1V portable HISTORY: Shortness of breath. Atypical Chest pain COMPARISON: None. FINDINGS: Perihilar interstitial/vascular thickening with small bilateral pleural effusions and cardi omegaly. This is consistent with pulmonary edema. The left-sided dual-chamber pacemaker. Old, healed left-sided rib fractures. No pneumothorax. IMPRESSION: Pulmonary edema and small bilateral pleural effusions. ACT 112: Negative or not required by law. Electronically signed by: Osiel Henson M.D. 06/15/2021 8:15 AM
[2021-06-15 09:54] LABS: Hematocrit (blood only) 34.7 % (37-47); Hemoglobin 11.7 g/dL (12.0-16.0); Lymphocytes # (auto) 0.34 K/uL (1.2-3.4); Lymphocytes % (auto) 11.8 %; Mean Corpuscular Hemoglobin 32.2 pg (25-34); Mean Corpuscular Hgb Conc 33.7 g/dL (32-36); Mean Corpuscular Volume 95.6 fL (80-100); Mean Platelet Volume 9.1 fL (7.4-10.4); Monocytes # (auto) 0.04 K/uL (0.11-0.59); Monocytes % (auto) 1.4 %; Neutrophils # (auto) 2.51 K/uL (1.4-6.5); Neutrophils % (auto) 86.8 %; Platelet Count 402 K/uL (130-400); RDW Coefficient of Variation 15.9 % (11.5-14.5); RDW Standard Deviation 55.9 fL (36.4-46.3); Red Blood Count 3.63 M/uL (4.2-5.4); White Blood Count 2.89 K/uL (4.8-10.8)
[2021-06-15] MEDS: FUROSEMIDE 40 MG/4 ML VIAL IV SCH ×2 (09:58→20:57)
[2021-06-15 10:03] LABS: INR 3.4 (0.9-1.1); Prothrombin Time 31.5 Seconds (9.0-12.0)
[2021-06-15 10:34] LABS: Albumin Level 3.4 gm/dl (3.4-5.0); BUN Creatinine Ratio 12.9 (10-20); Calcium 9.4 mg/dl (8.5-10.1); Creatinine Clr Calc Pharmacy 65.2 ml/min; Est GFR (African American) 99.9 ml/min; Est GFR (Non-African American) 86.2 ml/min; Magnesium 1.8 mg/dl (1.8-2.4); Potassium 3.5 mmol/L (3.5-5.1)
--- NOTE | 2021-06-15 10:39 | Electrocardiogram Report ---
Test Reason : Blood Pressure : / mmHG Vent. Rate : 090 BPM Atrial Rate : 468 BPM P-R Int : 000 ms QRS Dur : 074 ms QT Int : 352 ms P-R-T Axes : 000 038 -78 degrees QTc Int : 430 ms Poor data quality, interpretation may be adversely affected Atrial fibrillation with occasional ventricular-paced complexes Possible Anterior infarct , age undetermined Abnormal ECG When compared with ECG of 17-MAY-2021 09:02, Electronic ventricular pacemaker is present Confirmed by Zi Llamas ([id number]) on 06/15/2021 10:39:08 AM Referred By: REFERRED SELF Confirmed By:Zi Llamas
[2021-06-15] MEDS ORDERED: POTASSIUM CHLORIDE CRTAB 20 MEQ TABCR PO STA (10:49)
[2021-06-15] MEDS ORDERED: MAGNESIUM SULFATE / D5W 1 GM/100 ML BAG IV ONE (11:00)
[2021-06-15 11:02] LABS: Bilirubin,Total 0.4 mg/dl (0.2-1); Globulin 3.5 gm/dl (2.5-4.0); Thyroid Stimulating Hormone 0.676 uIu/ml (0.300-4.500); Total Protein 6.9 gm/dl (6.4-8.2); Troponin I 0.163 ng/ml (0-0.045)
[2021-06-15] MEDS: ACETAMINOPHEN 500 MG TAB PO PRN ×2 (12:45→20:27)
--- NOTE | 2021-06-15 17:55 | History & Physical Bridge Note ---
Date of Service June 15, 2021 History & Physical Bridge Note I have examined the patient, reviewed the History & Physical and in the interval since the performance of the History & Physical I have noted the following changes of clinical significance: Patient feeling much better and is awake and alert. She is having some lower back spasms but has not received any of her usual medications today. Tylenol did help with her pain. She also usually takes baclofen. I ordered all of her home medications now that she is taking p.o. and advance her diet to heart healthy and low-sodium. She is feeling much better, denies any chest pain or shortness of breath and is lying completely flat when I saw her. She has been getting much stronger since I last saw her in the hospital a month ago. She has been at rehab and is able to walk with the brace on her left foot. Her troponin here was minimally elevated and came down on repeat labs. Her heart rates are higher and she did not receive her beta-alfredo this morning. It was also noted that her torsemide was discontinued last admission-this may be why she became volume overloaded Vitals reviewed Gen: AAOx3, NAD, anxious HEENT: Anicteric sclerae, EOMI CV: Irregularly irregular, mildly tachycardic no mgr nl S1S2 Pulm: CTAB no wcr Abd: +BS soft NT ND no masses or hernias Ext: No edema, 2+ DP pulses Skin: No rashes, warm/dry Neuro: 5 out of 5 strength throughout except left lower extremity with 4/5 strength with hip flexion and knee extension and flexion, 0/5 with left foot dorsiflexion Laboratory values and rad studies reviewed ECG reviewed 80-year-old female with history of permanent atrial fibrillation flutter, DVT/PE on Coumadin, PPM, intracranial hemorrhage remotely, hypothyroidism, HTN, liver lesion, asthma, and 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 Presents to the hospital with acute shortness of breath, chest pains and weakness and found to have acute on chronic diastolic CHF. Most likely secondary to being off of her usual torsemide as well as without good rate control We will restart all of her home medications and consider increasing metoprolol for improved rate control to prevent future diastolic CHF She has diuresed and is doing very well after 1 dose of IV Lasix Continue IV Lasix twice daily and convert to torsemide upon discharge Replace electrolytes as needed-gave potassium magnesium this morning Of note, she will need follow-up with GI in the near future as per last a dmission for EUS
[2021-06-15] MEDS: lisinopril 20 MG TAB PO SCH (19:25)
[2021-06-15] MEDS: METOPROLOL TARTRATE 50 MG TAB PO SCH (19:25)
[2021-06-15] MEDS: FLUTICASONE/VILANTEROL 200/25MCG 14 PUFFS/INHALER INH SCH (19:26)
[2021-06-15] MEDS: MELATONIN 3 MG TAB PO SCH (20:29)
[2021-06-15] MEDS: DOXAZosin MESYLATE TAB 2 MG TAB PO SCH (20:29)
[2021-06-15] MEDS: ATORVASTATIN 40 MG TAB PO SCH (20:29)
[2021-06-15] MEDS: BACLOFEN 10 MG TAB PO SCH (20:30)
[2021-06-15] MEDS: GABAPENTIN 300 MG CAP PO SCH (20:30)
[2021-06-15] MEDS: DOCUSATE SODIUM 100 MG CAP PO SCH (20:30)
[2021-06-15] MEDS: FUROSEMIDE 20 MG in SYRINGE 0 ML IV SCH (20:58)
[2021-06-15] MEDS ORDERED: traMADol HCL 50 MG TABLET PO STA (21:15)
[2021-06-16] MEDS ORDERED: traZODone HCL 100 MG TAB PO ONE (00:06)
[2021-06-16 06:55] LABS: Basophils # (auto) 0.01 K/uL (0-0.2); Basophils % (auto) 0.2 %; Eosinophils # (auto) 0.05 K/uL (0-0.5); Hematocrit (blood only) 31.1 % (37-47); Hemoglobin 10.4 g/dL (12.0-16.0); Immature Granulocytes # (auto) 0.01 K/uL (0.00-0.02); Immature Granulocytes % (auto) 0.2 %; Lymphocytes # (auto) 1.34 K/uL (1.2-3.4); Lymphocytes % (auto) 26.9 %; Mean Corpuscular Hemoglobin 31.9 pg (25-34); Mean Corpuscular Hgb Conc 33.4 g/dL (32-36); Mean Corpuscular Volume 95.4 fL (80-100); Mean Platelet Volume 9.2 fL (7.4-10.4); Monocytes # (auto) 0.59 K/uL (0.11-0.59); Monocytes % (auto) 11.8 %; Neutrophils # (auto) 2.99 K/uL (1.4-6.5); Neutrophils % (auto) 59.9 %; Platelet Count 390 K/uL (130-400); RDW Coefficient of Variation 16.2 % (11.5-14.5); RDW Standard Deviation 56.5 fL (36.4-46.3); Red Blood Count 3.26 M/uL (4.2-5.4); White Blood Count 4.99 K/uL (4.8-10.8)
[2021-06-16 07:20] LABS: INR 4.4 (0.9-1.1); Prothrombin Time 39.8 Seconds (9.0-12.0)
[2021-06-16 07:28] LABS: Albumin Level 2.9 gm/dl (3.4-5.0); BUN Creatinine Ratio 17.5 (10-20); Calcium 9.9 mg/dl (8.5-10.1); Creatinine Clr Calc Pharmacy 56.4 ml/min; Est GFR (African American) 98.4 ml/min; Est GFR (Non-African American) 84.9 ml/min; Magnesium 2.1 mg/dl (1.8-2.4); Potassium 3.5 mmol/L (3.5-5.1)
[2021-06-16 07:31] LABS: Bilirubin,Total 0.4 mg/dl (0.2-1); Globulin 2.9 gm/dl (2.5-4.0); Total Protein 5.8 gm/dl (6.4-8.2)
[2021-06-16] MEDS: GABAPENTIN 300 MG CAP PO SCH ×3 (08:45→21:07)
[2021-06-16] MEDS: BACLOFEN 10 MG TAB PO SCH ×2 (08:46→21:06)
[2021-06-16] MEDS: DOCUSATE SODIUM 100 MG CAP PO SCH ×2 (08:46→21:06)
[2021-06-16] MEDS: DULoxetine HCL 30 MG CAP PO SCH (08:46)
[2021-06-16] MEDS: FUROSEMIDE 20 MG in SYRINGE 0 ML IV SCH (08:47)
[2021-06-16] MEDS: LEVOTHYROXINE SODIUM 137 MCG TABLET PO SCH (08:47)
[2021-06-16] MEDS: PANTOprazole 40 MG TAB PO SCH (08:48)
[2021-06-16] MEDS: METOPROLOL TARTRATE 50 MG TAB PO SCH ×2 (08:48→21:06)
[2021-06-16] MEDS: lisinopril 20 MG TAB PO SCH (08:48)
[2021-06-16] MEDS: FLUTICASONE/VILANTEROL 200/25MCG 14 PUFFS/INHALER INH SCH (08:49)
[2021-06-16] MEDS ORDERED: POTASSIUM CHLORIDE CRTAB 20 MEQ TABCR PO STA (08:52)
--- NOTE | 2021-06-16 12:55 | Hospitalist Progress Note ---
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 Presents to the hospital with acute shortness of breath, chest pains and weakness and found to have acute on chronic diastolic CHF. Most likely secondary to being off of her usual torsemide as well as without good rate control She has diuresed and is doing very well after a few doses of IV Lasix -convert to lasix 40mg po daily for tomorrow and continue on discharge Replace electrolytes as needed-gave KCl today (2) Bilateral pleural effusion: Plan: New bilateral pleural effusions, partially layering- Most recent echocardiogram on 05/18/21 showed ejection fraction of 60-65% diuresing as above clinically improved (3) Elevated troponin: Plan: Troponin on admission 0.177, mildly higher than her baseline. serial trop lower, no chest pain myocardial demand ischemia in setting of CHF (4) Hypertension: Plan: BPs elevated continue lisinopril, lasix,doxazosin (5) Atrial fibrillation: Plan: Atrial flutter and fib, permanent INR still supratherapeutic continue to hold coumadin, follow INR in AM rate controlled with metoprolol Decision was made to anticoagulate her last admission because of recent MCA stroke as wlel as DVT/PE-has previous intracranial hemorrhage but was tiny and did not require hospitalization and was remote-see previous admission for discussion with NS at [facility] (6) Pulmonary emboli: Plan: history of recent on coumadin (7) Anemia: Plan: mild, hgb 10.4, improved from previous admission, blood loss previous from extensive bruising in LLE which is reoslved (8) Dilated cbd, acquired: Plan: previous admission, needs EUS as outpt in near future with [facility] (9) Liver lesion: Plan: from previous admission, f/u [facility] as outpt (10) Pacemaker: Plan: noted (11) Pulmonary nodule: Plan: multiple nodules seen on CT chest in 04/2021, needs repeat Chest CT in 07/2021 (12) Stroke: Plan: h/o recent right MCA CVA with left hemiparesis, has improved greatly at acute rehab over last 2 months continue PT/OT, rehab continue coumadin, BP control has been managing spasms in LLE since CVA with baclofen, gabapentin, tylenol prn (13) Hypothyroid: Plan: continue levothyroxine 137 mcg daily TSH normal here (14) Asthma: Plan: continue home inhalers (15) Intracranial hemorrhage: Plan: as above history of such many years ago (16) Anxiety: Plan: avoid benzodiazepines given h/o overuse continue CYmbalta (17) DVT (deep venous thrombosis): Plan: See above (18) Mitral regurgitation: Plan: mild-mod on ECHO Plan: DIspo-medically stable for discharge, but requires insurance auth for rehab. Was supposed to be leaving [facility] soon anyway and going to SNF at [facility] Child Care aware and will apply for insurance auth on Thursday Admission and Anticipated Discharge Date Admission Date: June 15, 2021 Subjective Pt has no complaints. Pain is improved since restarting her usual home meds yesterday. No CP or SOB. Is eating and drinking, moving bowels. Tele with paced rhythmand atrial flutter, rates 80s Review of Systems Review of Systems: All systems reviewed & are unremarkable except as noted in HPI & below Physical Exam Constitutional: WD/WN, vitals as above Eyes: + anicteric sclerae ENMT: external ear and nose normal, oropharynx normal Neck: trachea midline, no thyromegaly Respiratory: normal respiratory effort, lungs clear to auscultation Cardiovascular: Rate/Rhythm: regular rate and + irregularly irregular Heart Sounds: normal S1 and normal S2; no murmur Chest (Breasts): Chest: normal inspection of chest Gastrointestinal (Abdomen): normal bowel sounds, soft, nontender, no hepatosplenomegaly Musculoskeletal: Extremities: extremities normal to inspection; no cyanosis and no clubbing Skin: no rashes, warm and dry Neurologic: moves all extremities, + focal motor deficit (weakness in LLE throughout 4/5) and awake Psychiatric: A+Ox3, euthymic affect Lymphatic: no lymphedema Results & Data Results & Data ([facility]) Vital Signs (Past 12 Hours) Vital Signs Temp Pulse Resp BP Pulse Ox 06/16/21 11:21 36.5 C 80 18 145/84 H 99 06/16/21 07:19 36.7 C 79 18 153/81 H 96 06/16/21 03:31 37.1 C 80 18 161/78 H 96 Laboratory Results 06/16/21 06/16/21 06/16/21 Range/Units 06:16 06:16 06:16 WBC 4.99 (4.8-10.8) K/uL RBC 3.26 L (4.2-5.4) M/uL Hgb 10.4 L (12.0-16.0) g/dL Hct 31.1 L (37-47) % MCV 95.4 (80-100) fL MCH 31.9 (25-34) pg MCHC 33.4 (32-36) g/dL RDW Std Deviation 56.5 H (36.4-46.3) fL RDW Coeff of Niyah 16.2 H (11.5-14.5) % Plt Count 390 (130-400) K/uL MPV 9.2 (7.4-10.4) fL Immature Gran % (Auto) 0.2 % Neut % (Auto) 59.9 % Lymph % (Auto) 26.9 % [place] % (Auto) 11.8 % Eos % (Auto) 1.0 % Baso % (Auto) 0.2 % Neut # (Auto) 2.99 (1.4-6.5) K/uL Lymph # (Auto) 1.34 (1.2-3.4) K/uL [place] # (Auto) 0.59 (0.11-0.59) K/uL Eos # (Auto) 0.05 (0-0.5) K/uL Baso # (Auto) 0.01 (0-0.2) K/uL Immature Gran # (Auto) 0.01 (0.00-0.02) K/uL PT 39.8 H (9.0-12.0) Seconds INR 4.4 H (0.9-1.1) Sodium 137 (136-145) mmol/L Potassium 3.5 (3.5-5.1) mmol/L Chloride 102 (98-107) mmol/L Carbon Dioxide 29 (21-32) mmol/L Anion Gap 6.0 (3-11) BUN 11 (7-18) mg/dl Creatinine 0.64 (0.6-1.2) mg/dl Est Cr Clr Drug Dosing 56.4 ml/min Est GFR ( Amer) 98.4 ml/min Est GFR (Non-Af Amer) 84.9 ml/min BUN/Creatinine Ratio 17.5 (10-20) Glucose 91 (70-99) mg/dl Calcium 9.9 (8.5-10.1) mg/dl Magnesium 2.1 (1.8-2.4) mg/dl Total Bilirubin 0.4 (0.2-1) mg/dl AST 11 L (15-37) U/L ALT 19 (12-78) U/L Alkaline Phosphatase 83 (45-117) U/L Total Protein 5.8 L (6.4-8.2) gm/dl Albumin 2.9 L (3.4-5.0) gm/dl Globulin 2.9 (2.5-4.0) gm/dl Albumin/Globulin Ratio 1.0 (0.9-2) PG Care Time/CCT Total # of Minutes Spent Total Time Spent with Patient: Total time spent is greater than 50% in coordination of care (as documented) at patient's floor/unit and/or counseling patient: Coding Level of Care Code 62715 Subseq Hosp Care Lvl 3 Diagnoses Bilateral pleural effusion J90 Elevated troponin R77.8 Anxiety F41.9 Asthma J45.909 Hypothyroid E03.9 Hypertension I10 Atrial fibrillation I48.91 Intracranial hemorrhage I62.9 DVT (deep venous thrombosis) I82.402 Affected thrombotic vein of extremity: unspecified vein of extremity Chronicity: acute DVT location: lower extremity Laterality: left Pulmonary emboli I26.99 Acute cor pulmonale presence: unspecified Chronicity: unspecified Pulmonary embolism type: unspecified Anemia D64.9 Dilated cbd, acquired K83.8 Liver lesion K76.9 Pacemaker Z95.0 Pulmonary nodule R91.1 Acute on chronic diastolic (congestive) heart failure I50.33 Stroke I63.9 Mitral regurgitation I34.0 (1) DVT (deep venous thrombosis) Affected thrombotic vein of extremity: unspecified vein of extremity Chronicity: acute DVT location: lower extremity Laterality: left Qualified Code(s): I82.402 - Acute embolism and thrombosis of unspecified deep veins of left lower extremity (2) Pulmonary emboli Acute cor pulmonale presence: unspecified Chronicity: unspecified Pulmonary embolism type: unspecified Qualified Code(s): I26.99 - Other pulmonary embolism without acute cor pulmonale
--- NOTE | 2021-06-16 13:32 | Electrocardiogram Report ---
Test Reason : Blood Pressure : / mmHG Vent. Rate : 087 BPM Atrial Rate : 394 BPM P-R Int : 000 ms QRS Dur : 088 ms QT Int : 398 ms P-R-T Axes : 000 017 260 degrees QTc Int : 478 ms Atrial fibrillation with frequent ventricular-paced complexes Prolonged QT Abnormal ECG When compared with ECG of 14-JUN-2021 22:46, Vent. rate has decreased BY 3 BPM Confirmed by Marty Roach ([id number]) on 06/16/2021 1:32:03 PM Referred By: REFERRED SELF Confirmed By:Marty Roach
[2021-06-16] MEDS: ACETAMINOPHEN 500 MG TAB PO PRN (15:28)
[2021-06-16] MEDS ORDERED: traMADol HCL 50 MG TABLET PO STA (18:01)
[2021-06-16] MEDS ORDERED: traMADol HCL 50 MG TABLET ONE (21:03)
[2021-06-16] MEDS: MELATONIN 3 MG TAB PO SCH (21:06)
[2021-06-16] MEDS: ATORVASTATIN 40 MG TAB PO SCH (21:06)
[2021-06-16] MEDS: DOXAZosin MESYLATE TAB 2 MG TAB PO SCH (21:07)
[2021-06-16] MEDS ORDERED: ALBUTEROL HFA 8 GM INHALER INH PRN (21:19)
[2021-06-16] MEDS: traZODone HCL 50 MG TAB PO ONE ×2 (21:21→22:21)
[2021-06-16] MEDS ORDERED: BACLOFEN 10 MG TAB PO ONE (22:37)
[2021-06-17] MEDS: ACETAMINOPHEN 500 MG TAB PO PRN ×2 (05:51→14:01)
[2021-06-17] MEDS: LEVOTHYROXINE SODIUM 137 MCG TABLET PO SCH (05:51)
[2021-06-17] MEDS: GABAPENTIN 300 MG CAP PO SCH ×3 (08:36→20:28)
[2021-06-17] MEDS: METOPROLOL TARTRATE 50 MG TAB PO SCH ×2 (08:36→20:28)
[2021-06-17] MEDS: DOCUSATE SODIUM 100 MG CAP PO SCH ×2 (08:36→20:28)
[2021-06-17] MEDS: PANTOprazole 40 MG TAB PO SCH (08:36)
[2021-06-17] MEDS: lisinopril 40 MG TAB PO SCH (08:36)
[2021-06-17] MEDS: DULoxetine HCL 30 MG CAP PO SCH (08:37)
[2021-06-17] MEDS: FUROSEMIDE 40 MG TAB PO SCH (08:37)
[2021-06-17] MEDS: BACLOFEN 10 MG TAB PO SCH ×2 (08:38→20:26)
[2021-06-17] MEDS: FLUTICASONE/VILANTEROL 200/25MCG 14 PUFFS/INHALER INH SCH (08:39)
[2021-06-17 09:45] LABS: Basophils # (auto) 0.01 K/uL (0-0.2); Basophils % (auto) 0.2 %; Eosinophils # (auto) 0.11 K/uL (0-0.5); Eosinophils % (auto) 1.9 %; Hematocrit (blood only) 35.2 % (37-47); Hemoglobin 11.6 g/dL (12.0-16.0); Immature Granulocytes # (auto) 0.01 K/uL (0.00-0.02); Immature Granulocytes % (auto) 0.2 %; Lymphocytes # (auto) 0.77 K/uL (1.2-3.4); Lymphocytes % (auto) 13.2 %; Mean Corpuscular Hemoglobin 31.8 pg (25-34); Mean Corpuscular Volume 96.4 fL (80-100); Mean Platelet Volume 8.9 fL (7.4-10.4); Monocytes # (auto) 0.45 K/uL (0.11-0.59); Monocytes % (auto) 7.7 %; Neutrophils # (auto) 4.49 K/uL (1.4-6.5); Neutrophils % (auto) 76.8 %; Platelet Count 408 K/uL (130-400); RDW Standard Deviation 56.8 fL (36.4-46.3); Red Blood Count 3.65 M/uL (4.2-5.4); White Blood Count 5.84 K/uL (4.8-10.8)
[2021-06-17 09:53] LABS: INR 2.2 (0.9-1.1); Prothrombin Time 20.6 Seconds (9.0-12.0)
[2021-06-17 10:19] LABS: BUN Creatinine Ratio 16.2 (10-20); Calcium 9.8 mg/dl (8.5-10.1); Creatinine Clr Calc Pharmacy 53.1 ml/min; Est GFR (African American) 96.4 ml/min; Est GFR (Non-African American) 83.2 ml/min; Magnesium 1.8 mg/dl (1.8-2.4); Potassium 3.2 mmol/L (3.5-5.1)
--- NOTE | 2021-06-17 13:58 | Electrocardiogram Report ---
Test Reason : Blood Pressure : / mmHG Vent. Rate : 081 BPM Atrial Rate : 082 BPM P-R Int : 000 ms QRS Dur : 162 ms QT Int : 442 ms P-R-T Axes : 000 257 077 degrees QTc Int : 513 ms Ventricular-paced rhythm Abnormal ECG When compared with ECG of 16-JUN-2021 09:04, Vent. rate has decreased BY 6 BPM Confirmed by Marty Roach ([id number]) on 06/17/2021 1:58:12 PM Referred By: REFERRED SELF Confirmed By:Marty Roach
--- NOTE | 2021-06-17 15:38 | Hospitalist Progress Note ---
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 Presents to the hospital with acute shortness of breath, chest pains and weakness and found to have acute on chronic diastolic CHF. Most likely secondary to being off of her usual torsemide as well as without good rate control diuresed well with two days of Lasix 40mg IV -convert to lasix 40mg po daily today and continue on discharge (2) Bilateral pleural effusion: Plan: New bilateral pleural effusions, partially layering- Most recent echocardiogram on 05/18/21 showed ejection fraction of 60-65% diuresing as above clinically improved (3) Elevated troponin: Plan: Troponin on admission 0.177, mildly higher than her baseline. serial trop lower, no chest pain myocardial demand ischemia in setting of CHF (4) Hypertension: Plan: BPs better controlled today continue metoprolol, lisinopril, lasix, doxazosin (5) Atrial fibrillation: Plan: Atrial flutter and fib, permanent INR down to 2.2, resume Coumadin but at lower dose of 2mg daily from 2.5mg rate controlled with metoprolol Decision was made to anticoagulate her last admission because of recent MCA stroke as wlel as DVT/PE-has previous intracranial hemorrhage but was tiny and did not require hospitalization and was remote-see previous admission for discussion with NS at [place] (6) Pulmonary emboli: Plan: history of recent on coumadin, INR 2.2 today (7) Anemia: Plan: mild, hgb 11 today, improved from previous admission, blood loss previous from extensive bruising in LLE which is resolved (8) Dilated cbd, acquired: Plan: previous admission, needs EUS as outpt in near future with [facility] (9) Liver lesion: Plan: from previous admission, f/u [facility] as outpt (10) Pacemaker: Plan: noted (11) Pulmonary nodule: Plan: multiple nodules seen on CT chest in 04/2021, needs repeat Chest CT in 07/2021 (12) Stroke: Plan: h/o recent right MCA CVA with left hemiparesis, has improved greatly at acute rehab over last 2 months continue PT/OT, rehab continue coumadin, BP control has been managing spasms in LLE since CVA with baclofen, gabapentin, tylenol prn (13) Hypothyroid: Plan: continue levothyroxine 137 mcg daily TSH normal here (14) Asthma: Plan: continue home inhalers (15) Intracranial hemorrhage: Plan: as above history of such many years ago (16) Anxiety: Plan: avoid benzodiazepines given h/o overuse continue CYmbalta (17) DVT (deep venous thrombosis): Plan: See above (18) Mitral regurgitation: Plan: mild-mod on ECHO Plan: DIspo-medically stable for discharge, but requires insurance auth for rehab. try for [facility] tomorrow Admission and Anticipated Discharge Date Admission Date: June 15, 2021 Subjective patient doing well, breathing much better since diuresis, Cr is stable, vitals stable reviewed chart and labs d/w CM, need updated therapy notes for SNF rehab approval, [facility], explained this to patient no fever, no cough, no chest pain, no dyspnea, no GI symptoms Review of Systems Review of Systems: All systems reviewed & are unremarkable except as noted in Subjective Physical Exam Constitutional: WD/WN, vitals as above no acute distress Neck: trachea midline, no thyromegaly Respiratory: normal respiratory effort; no labored breathing and no cough Auscultation: lungs clear to auscultation bilaterally and + diminished lung sounds (bases) Cardiovascular: Rate/Rhythm: regular rate and + irregularly irregular Heart Sounds: normal S1 and normal S2; no murmur Extremities: normal capillary refill; no edema Gastrointestinal (Abdomen): normal bowel sounds, soft, nontender, no hepatosplenomegaly Musculoskeletal: no cyanosis or clubbing, extremities motor strength 5/5 Skin: no rashes, warm and dry Neurologic: patellar DTR's 2+ bilat, sensation intact and PERRL, EOMI, accommodation nl, no face palsy, no dysarthria Psychiatric: A+Ox3, euthymic affect Results & Data Results & Data ([facility]) Vital Signs (Past 12 Hours) Vital Signs Temp Pulse Pulse Resp BP BP Pulse Ox 06/17/21 15:29 80 06/17/21 11:47 36.6 C 80 20 117/75 97 06/17/21 10:34 80 06/17/21 08:28 36.6 C 86 18 152/78 H 92 06/17/21 04:06 36.8 C 48 L 18 133/72 96 Laboratory Results Laboratory Results - last 24 hr 06/17/21 06/17/21 06/17/21 09:29 09:29 09:29 WBC 5.84 RBC 3.65 L Hgb 11.6 L Hct 35.2 L MCV 96.4 MCH 31.8 MCHC 33.0 RDW Std Deviation 56.8 H RDW Coeff of Niyah 16.0 H Plt Count 408 H MPV 8.9 Immature Gran % (Auto) 0.2 Neut % (Auto) 76.8 Lymph % (Auto) 13.2 Castro % (Auto) 7.7 Eos % (Auto) 1.9 Baso % (Auto) 0.2 Neut # (Auto) 4.49 Lymph # (Auto) 0.77 L Castro # (Auto) 0.45 Eos # (Auto) 0.11 Baso # (Auto) 0.01 Immature Gran # (Auto) 0.01 PT 20.6 H INR 2.2 H Sodium 137 Potassium 3.2 L Chloride 103 Carbon Dioxide 27 Anion Gap 7.0 BUN 11 Creatinine 0.68 Est Cr Clr Drug Dosing 53.1 Est GFR ( Amer) 96.4 Est GFR (Non-Af Amer) 83.2 BUN/Creatinine Ratio 16.2 Glucose 126 H Calcium 9.8 Magnesium 1.8 Nasal Screen MRSA (PCR) 06/17/21 10:20 WBC RBC Hgb Hct MCV MCH MCHC RDW Std Deviation RDW Coeff of Niyah Plt Count MPV Immature Gran % (Auto) Neut % (Auto) Lymph % (Auto) Castro % (Auto) Eos % (Auto) Baso % (Auto) Neut # (Auto) Lymph # (Auto) Castro # (Auto) Eos # (Auto) Baso # (Auto) Immature Gran # (Auto) PT INR Sodium Potassium Chloride Carbon Dioxide Anion Gap BUN Creatinine Est Cr Clr Drug Dosing Est GFR ( Amer) Est GFR (Non-Af Amer) BUN/Creatinine Ratio Glucose Calcium Magnesium Nasal Screen MRSA (PCR) Positive A Medications Administered Current Inpatient Medications Acetaminophen (Acetaminophen 500 Mg Tab) 1,000 mg PO Q8 PRN PRN Reason: pain Stop: 07/15/21 11:57 Last Admin: 06/17/21 14:01 Dose: 1,000 mg Documented by: Albuterol (Albuterol Hfa 8 Gm Inhaler) 2 puffs INH Q6R PRN PRN Reason: SOB or wheezing Stop: 07/16/21 21:18 Atorvastatin Calcium (Atorvastatin 40 Mg Tab) 40 mg PO HS PENDING SALE TO [facility] Stop: 07/15/21 20:59 Last Admin: 06/16/21 21:06 Dose: 40 mg Documented by: Baclofen (Baclofen 10 Mg Tab) 5 mg PO BID MELIDA Stop: 07/15/21 20:59 Last Admin: 06/17/21 08:38 Dose: 5 mg Documented by: Docusate Sodium (Docusate Sodium 100 Mg Cap) 100 mg PO BID MELIDA Stop: 07/15/21 20:59 Last Admin: 06/17/21 08:36 Dose: 100 mg Documented by: Doxazosin Mesylate (Doxazosin Mesylate Tab 2 Mg Tab) 2 mg PO HS PENDING SALE TO [facility] Stop: 07/15/21 20:59 Last Admin: 06/16/21 21:07 Dose: 2 mg Documented by: Duloxetine HCl (Duloxetine Hcl 30 Mg Cap) 30 mg PO QAM PENDING SALE TO [facility] Stop: 07/16/21 08:59 Last Admin: 06/17/21 08:37 Dose: 30 mg Documented by: Fluticasone/Vilanterol (Fluticasone/Vilanterol 200/25mcg 14 Puffs/Inhaler) 1 puffs INH DAILY MELIDA Stop: 07/15/21 17:59 Last Admin: 06/17/21 08:39 Dose: 1 puffs Documented by: Furosemide (Furosemide 40 Mg Tab) 40 mg PO QAM PENDING SALE TO [facility] Stop: 07/17/21 08:59 Last Admin: 06/17/21 08:37 Dose: 40 mg Documented by: Gabapentin (Gabapentin 300 Mg Cap) 300 mg PO TID PENDING SALE TO [facility] Stop: 07/15/21 20:59 Last Admin: 06/17/21 14:59 Dose: 300 mg Documented by: Levothyroxine Sodium (Levothyroxine Sodium 137 Mcg Tablet) 137 mcg PO DAILYBB PENDING SALE TO [facility] Stop: 07/16/21 06:29 Last Admin: 06/17/21 05:51 Dose: 137 mcg Documented by: Lisinopril (Lisinopril 40 Mg Tab) 40 mg PO QAM PENDING SALE TO [facility] Stop: 07/17/21 08:59 Last Admin: 06/17/21 08:36 Dose: 40 mg Documented by: Melatonin (Melatonin 3 Mg Tab) 3 mg PO HS PENDING SALE TO [facility] Stop: 07/15/21 20:59 Last Admin: 06/16/21 21:06 Dose: 3 mg Documented by: Metoprolol Tartrate (Metoprolol Tartrate 50 Mg Tab) 50 mg PO BID PENDING SALE TO [facility] Stop: 07/15/21 17:49 Last Admin: 06/17/21 08:36 Dose: 50 mg Documented by: Ondansetron HCl (Ondansetron Inj 2 Mg/Ml 2 Ml Vial) 4 mg IV Q6H PRN PRN Reason: Nausea Stop: 07/15/21 07:30 Pantoprazole Sodium (Pantoprazole 40 Mg Tab) 40 mg PO QAM PENDING SALE TO [facility] Stop: 07/16/21 08:59 Last Admin: 06/17/21 08:36 Dose: 40 mg Documented by: Warfarin Sodium (Warfarin Sod 2 Mg Tab) 2 mg PO DAILY@1600 PENDING SALE TO [facility] Stop: 07/17/21 15:59 PG Care Time/CCT Total # of Minutes Spent Total Time Spent with Patient: Total time spent is greater than 50% in coordination of care (as documented) at patient's floor/unit and/or counseling patient: Coding Level of Care Code 59520 Subseq Hosp Care Lvl 3 Diagnoses Acute on chronic diastolic (congestive) heart failure I50.33 Bilateral pleural effusion J90 Elevated troponin R77.8 Hypertension I10 Atrial fibrillation I48.91 Pulmonary emboli I26.99 Acute cor pulmonale presence: unspecified Chronicity: unspecified Pulmonary embolism type: unspecified Anemia D64.9 Dilated cbd, acquired K83.8 Liver lesion K76.9 Pacemaker Z95.0 Pulmonary nodule R91.1 Stroke I63.9 Hypothyroid E03.9 Asthma J45.909 Intracranial hemorrhage I62.9 Anxiety F41.9 DVT (deep venous thrombosis) I82.402 Affected thrombotic vein of extremity: unspecified vein of extremity Chronicity: acute DVT location: lower extremity Laterality: left Mitral regurgitation I34.0 (1) Pulmonary emboli Acute cor pulmonale presence: unspecified Chronicity: unspecified Pulmonary embolism type: unspecified Qualified Code(s): I26.99 - Other pulmonary embolism without acute cor pulmonale (2) DVT (deep venous thrombosis) Affected thrombotic vein of extremity: unspecified vein of extremity Chronicity: acute DVT location: lower extremity Laterality: left Qualified Code(s): I82.402 - Acute embolism and thrombosis of unspecified deep veins of left lower extremity
[2021-06-17] MEDS ORDERED: WARFARIN SOD 2 MG TAB PO SCH (16:00)
[2021-06-17] MEDS: ATORVASTATIN 40 MG TAB PO SCH (20:26)
[2021-06-17] MEDS: DOXAZosin MESYLATE TAB 2 MG TAB PO SCH (20:27)
[2021-06-17] MEDS: MELATONIN 3 MG TAB PO SCH (20:27)
[2021-06-18] MEDS: traMADol HCL 50 MG TABLET PO PRN ×2 (00:40→11:05)
[2021-06-18] MEDS: LEVOTHYROXINE SODIUM 137 MCG TABLET PO SCH (05:38)
[2021-06-18] MEDS: lisinopril 40 MG TAB PO SCH (07:57)
[2021-06-18] MEDS: DULoxetine HCL 30 MG CAP PO SCH (07:57)
[2021-06-18] MEDS: FUROSEMIDE 40 MG TAB PO SCH (07:57)
[2021-06-18] MEDS: GABAPENTIN 300 MG CAP PO SCH (07:58)
[2021-06-18] MEDS: METOPROLOL TARTRATE 50 MG TAB PO SCH (07:58)
[2021-06-18] MEDS: DOCUSATE SODIUM 100 MG CAP PO SCH (07:58)
[2021-06-18] MEDS: BACLOFEN 10 MG TAB PO SCH (07:59)
[2021-06-18] MEDS: PANTOprazole 40 MG TAB PO SCH (07:59)
[2021-06-18] MEDS: FLUTICASONE/VILANTEROL 200/25MCG 14 PUFFS/INHALER INH SCH (08:00)
--- NOTE | 2021-06-18 11:08 | Discharge Summary ---
Date of Service June 18, 2021 Admission HPI Per Admitting Provider The patient is a 80-year-old female with a past medical history including acquired dilated common bile duct, asthma, UTI, liver lesion, weight loss, pacemaker, intracranial hemorrhage, hypothyroidism, hypertension, atrial fibrillation, DVT and pulmonary emboli. Her most recent admission was from 05/12-05/21. Troponin in the emergency department was 0.177, which was slightly higher than her baseline. Her EKG was unchanged. Work-up in the emergency department also included a CT scan of the chest, which showed new bilateral layering pleural effusions. Principal Diagnosis Acute on chronic diastolic heart failure Discharge Exam Constitutional WD/WN, vitals as above no acute distress Neck trachea midline, no thyromegaly Respiratory normal respiratory effort; no labored breathing and no cough Auscultation: lungs clear to auscultation bilaterally and + diminished lung sounds (bases) Cardiovascular Rate/Rhythm: regular rate and + irregularly irregular Heart Sounds: normal S1 and normal S2; no murmur Extremities: normal capillary refill; no edema Gastrointestinal (Abdomen) normal bowel sounds, soft, nontender, no hepatosplenomegaly Musculoskeletal no cyanosis or clubbing, extremities motor strength 5/5 Skin no rashes, warm and dry Neurologic patellar DTR's 2+ bilat, sensation intact and PERRL, EOMI, accommodation nl, no face palsy, no dysarthria Psychiatric A+Ox3, euthymic affect Discharge Data Allergies Allergy/AdvReac Type Severity Reaction Status Date / Time iodine Allergy chills, Verified 05/17/21 09:35 burning sensation in neck vancomycin Allergy rash, Verified 05/17/21 09:35 nausea Consultations 06/15/21 03:22 ED Decision to Admit Stat Ordered Studies 06/15/21 00:42 CT chest diagnostic w con Urgent Hospital Course (1) Acute on chronic diastolic (congestive) heart failure: 80-year-old female with history of permanent atrial fibrillation flutter, DVT/PE on Coumadin, PPM, intracranial hemorrhage remotely, hypothyroidism, HTN, liver lesion, asthma, and 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 Presents to the hospital with acute shortness of breath, chest pains and weakness and found to have acute on chronic diastolic CHF. Most likely secondary to being off of her usual torsemide as well as without good rate control diuresed well with two days of Lasix 40mg IV -convert to lasix 40mg po daily today and continue on discharge daily weights, if weight up by 2-3 lbs from baseline then give extra Lasix in afternoon fluid restriction to 2L daily, low sodium diet (2) Bilateral pleural effusion: New bilateral pleural effusions, partially layering- Most recent echocardiogram on 05/18/21 showed ejection fraction of 60-65% diuresing as above clinically improved. breathing well on room air (3) Elevated troponin: Troponin on admission 0.177, mildly higher than her baseline. serial trop lower, no chest pain myocardial demand ischemia in setting of CHF (4) Hypertension: BPs better controlled today continue metoprolol, lisinopril, lasix, doxazosin (5) Atrial fibrillation: Atrial flutter and fib, permanent INR down to 2.2, resume Coumadin but at lower dose of 2mg daily from 2.5mg rate controlled with metoprolol Decision was made to anticoagulate her last admission because of recent MCA stroke as wlel as DVT/PE-has previous intracranial hemorrhage but was tiny and did not require hospitalization and was remote-see previous admission for discussion with NS at [facility] (6) Pulmonary emboli: history of recent on coumadin, INR 2.2 06/17 should repeat INR on 06/21 at SNF (7) Anemia: mild, hgb 11 06/17, improved from previous admission, blood loss previous from extensive bruising in LLE which is resolved (8) Dilated cbd, acquired: previous admission, [facility] (9) Liver lesion: from previous admission, f/u [facility] as outpt (10) Pacemaker: noted (11) Pulmonary nodule: multiple nodules seen on CT chest in 04/2021, needs repeat Chest CT in 07/2021 (12) Stroke: h/o recent right MCA CVA with left hemiparesis, has improved greatly at acute rehab over last 2 months continue PT/OT, rehab continue coumadin, BP control has been managing spasms in LLE since CVA with baclofen, gabapentin, tylenol prn (13) Hypothyroid: continue levothyroxine 137 mcg daily TSH normal here (14) Asthma: continue home inhalers (15) Intracranial hemorrhage: as above history of such many years ago (16) Anxiety: avoid benzodiazepines given h/o overuse continue CYmbalta (17) DVT (deep venous thrombosis): See above (18) Mitral regurgitation: mild-mod on ECHO DIspo-medically stable for discharge, but requires insurance auth for rehab. try for [place] tomorrow Total Time Total Time Spent Total Time Spent (In Minutes): 32 Discharge Plan Discharge Items Patient Disposition: Transfer [facility] Fac Reason For Visit: B/L PLEURAL EFFUSIONS, CHEST PAIN Discharge Diagnosis: Acute on chronic diastolic heart failure Condition on Discharge: Good Goals: use Lasix to keep volume normal CHF instructions Activity: Resume your previous activity Non-emergency contact: Primary Care Provider Call non-emergency contact if: you have any medication questions and your symptoms worsen Follow-up/Referrals: Surekha Saucedo MD [Primary Care Provider] - (one week) Diet: Heart Healthy and Low Sodium (2gm) Fluids: 2000ml (8 cups) Addtl Attending Provider Instructions: Medications: - LASIX: take 40mg daily to help control volume - WARFARIN: note that dose decreased from 2.5mg to 2mg daily, check INR on Thursday 06/21 Acute on chronic diastolic heart failure with bilateral pleural effusions much improved with two days of Lasix IV and now on Lasix 40mg PO daily for maintenance renal function, electrolytes are stable recommend daily weight, if patient's weight goes up by 2-3 lbs then consider giving extra Lasix in afternoon low sodium diet, fluid restrict to 2L a day multiple nodules seen on CT chest in 04/2021, needs repeat Chest CT in 07/2021 Call 911 and go to the Emergency Room if: * You have tightness or pain in your chest that does not go away with rest or Nitroglycerin * You are very short of breath even with rest Call your doctor if any of the following symptoms or problems start or get worse: * Shortness of breath or difficulty breathing * Wake up at night short of breath * Chest pain * Cough * Swelling of your hands, fee, or legs * More fatigued or tired with your normal activity * Palpitations - sudden fast heart beats WEIGHT * Weigh yourself every morning after using the bathroom. * Use the same scale. * Wear the same amount of clothing. * Write your weight down on your chart. * Call your doctor if you gain more than 2-3 pounds in 1-2 days. MEDICATIONS * Use this discharge instruction sheet for instructions. * Take your medications at the time your doctor ordered. * Do not skip a dose of your medicines. * If you miss a dose of medicine, take as soon as possible, but DO NOT DOUBLE A DOSE. * Read your medicine information when you get home. * Know all of the side effects of your medicine. * Call your doctor's office if you have any side effects. * Be sure all of your doctors know what medicine and herbs you take (including cold, flu, and herbal medicine). * Pain Medicine: If you do not get relief from your pain, please call your doctor for help. Take the following with you to your follow-up doctor appointments: * Weight Chart * Medication List * List of questions Do not drink excessive alcohol, beer or wine. Pending Studies at Discharge: No Stand-Alone Forms: [facility] Skilled Items Patient informed of condition?: Yes DNR: No Discharge Level of Care: Skilled Communicable Disease: No Discharge Prognosis: Stable Lines: None Urinary Catheter: No Medications and DC Order Prescriptions: New furosemide 40 mg Tablet 40 mg PO QAM 30 Days Qty: 30 RF: 3 warfarin 2 mg Tablet 2 mg PO DAILY@1600 30 Days Qty: 30 RF: 1 Continued albuterol sulfate 90 mcg/actuation HFA aerosol inhaler 2 puffs inhalation Q4H PRN (Reason: SHORT OF BREATH) RF: 0 cholecalciferol (vitamin D3) 2,000 unit capsule 2,000 units PO QAM RF: 0 levothyroxine 137 mcg tablet 137 mcg PO DAILYBB RF: 0 atorvastatin [Lipitor] 40 mg tablet 40 mg PO HS RF: 0 polyethylene glycol 3350 [Miralax] 17 gram Powder In Packet 17 g PO QDL PRN (Reason: Constipation) RF: 0 sennosides-docusate sodium [Senokot-S] 8.6-50 mg Tablet 1 tab-cap PO QDL PRN (Reason: Constipation) RF: 0 melatonin 3 mg Tablet 3 mg PO HS RF: 0 pantoprazole 40 mg Tablet,Delayed Release (Dr/Ec) 40 mg PO DAILYBB RF: 0 metoprolol tartrate 50 mg Tablet 50 mg PO Q12H RF: 0 docusate sodium 100 mg Capsule 100 mg PO BID RF: 0 folic acid 1 mg Tablet 2 mg PO QAM RF: 0 calcium carbonate 500 mg calcium (1,250 mg) Tablet,Chewable 500 mg PO QID RF: 0 doxazosin [Cardura] 2 mg tablet 2 mg PO HS RF: 0 baclofen 5 mg Tablet 5 mg PO BID RF: 0 oxycodone 5 mg Tablet 5 mg PO TID PRN (Reason: pain) Qty: 0 RF: 0 gabapentin 100 mg Capsule 300 mg PO Q8H Qty: 0 RF: 0 duloxetine [Cymbalta] 20 mg Capsule,Delayed Release(Dr/Ec) 30 mg PO QAM Qty: 0 RF: 0 nitroglycerin [Nitrostat] 0.4 mg Tablet, Sublingual 0.4 mg sublingual DIRECTED PRN (Reason: Chest Pain) RF: 0 lisinopril 40 mg Tablet 40 mg PO QAM RF: 0 Breo Ellipta 200-25 mcg/dose Blister With Device 1 inh INHALATION QAM RF: 0 Discontinued warfarin 2.5 mg tablet 2.5 mg PO DAILY Qty: 1 RF: 0 Discharge Orders: Discharge Order (Routine); Ordered 06/18/21 Ordered By: Celso Arroyo Admission Data Admit Date/Time: 06/15/21 04:15 Attending Provider: Celso Arroyo Admit Provider: Marcus Jiang Primary Care Provider: Surekha Saucedo Other Providers: Marcus Jiang ; [facility] Other Interventions: Discharge Summary Assessment (RN) Last Done: 06/18/21 09:41 Coding Level of Care Code D/C DAY MANAGEMENT >30 MINS Diagnoses Acute on chronic diastolic (congestive) heart failure I50.33 Bilateral pleural effusion J90 Elevated troponin R77.8 Hypertension I10 Atrial fibrillation I48.91 Pulmonary emboli I26.99 Acute cor pulmonale presence: unspecified Chronicity: unspecified Pulmonary embolism type: unspecified Anemia D64.9 Dilated cbd, acquired K83.8 Liver lesion K76.9 Pacemaker Z95.0 Pulmonary nodule R91.1 Stroke I63.9 Hypothyroid E03.9 Asthma J45.909 Intracranial hemorrhage I62.9 Anxiety F41.9 DVT (deep venous thrombosis) I82.402 Affected thrombotic vein of extremity: unspecified vein of extremity Chronicity: acute DVT location: lower extremity Laterality: left Mitral regurgitation I34.0
== END 2021-06-18 11:19 ==
LOC: ED 22:37 → INTOOBSV 06-15 04:15 → 2W 06-15 04:15 → SUATTDRO 06-15 04:15 → 2W 06-15 06:26